=== PATIENT | female | born 1985 | race Hispanic/Latino ===

== ENCOUNTER → 2017-12-16 | Outpatient (CLI) | payer OTHER, BC ==
[~2017-12-16] MED LIST: AMITRIPTYLINE H10 MG PO; AMITRIPTYLINE100 MG PO; BIOTIN PO; BIOTIN2500 MCG PO; CARVEDILOL PO; CARVEDILOL3.125 MG PO; DOXYCYCLINE HY100 MG PO; ENOXAPARIN100 MG/1 M SC; FERROUS SULFAT325 MG PO; FIBER CON PO; FIBERCON625 MG PO; GENTLE LAXATIVE5 M1 PO; LOSARTAN POTAS100 MG PO; SANTYL15 GM TOP; VITAMIN C PO; VITAMIN C500 MG PO
--- NOTE | 2017-12-16 14:12 | Diagnostic Imaging Report ---
PROCEDURE:US RETROPERITONEAL ( KIDNEY ). COMPARISON:None. INDICATIONS:GROSS HEMATURIA TECHNIQUE: Mott scale color Doppler ultrasound kidneys FINDINGS: Right: 10.2 x 5.7 x 5.2 cm. Cortical thickness 2.3 cm Left: 12 x 5.7 x 5.6 cm. Cortical thickness 2.7 cm Both kidneys demonstrate normal parenchymal echogenicity. No conspicuous mass or stone. The right kidney contains a triangular-shaped 1.5 x 0.8 x 1.4 cm focus of hyperechogenicity along the anterior cortex which is incontinuity with adjacent pararenal fat. Simple cyst: 1.2 x 1.2 x 1.2 cm left inferior pole Survey views of the urinary bladder are normal. Patent ureters bilaterally. CONCLUSION: 1. No conspicuous etiology for hematuria. 2. Simple left inferior pole renal cyst. 3. Small wedge-shaped defect in the right kidney cortex in keeping with a cleft or sequela of remote infarct. This region is filled with adjacent pararenal fat. Dictated by: Esvin Leary M.D. on 12/16/2017 at 14:15 Electronically approved by: Esvin Leary M.D. on 12/16/2017 at 14:15
== END ==
LOC: US 12:10
PROVIDERS: ATTEND Urology
DX: R31.0 Gross hematuria (principal)
CPT/HCPCS: 76770

== ENCOUNTER → 2018-03-19 | Outpatient (CLI) | payer BC, MEDICARE ==
[~2018-03-19] MED LIST changes: +FUROSEMIDE INJ 10 MG/ML 4 ML VIAL ONE; +IOPAMIDOL 370 MG/ML 200 ML INFUS..BTL INJ ONE; +SODIUM CHLORIDE 0.9% 100 ML 100 ML ONE
[2018-03-19 08:23] LABS: BLOOD UREA NITROGEN 11 mg/dL (7-26); BUN/CREATININE RATIO 18 (6-25); CREATININE, SERUM 0.61 mg/dL (0.57-1.11); EST GLOMERULAR FILTRATION RATE > 60 ML/MIN (60-)
--- NOTE | 2018-03-19 16:14 | Diagnostic Imaging Report ---
Renal Scan with Lasix Washout Clinical information: 33 F with gross hematuria Technique: Following intravenous administration of 10 mCi of Tc-99m MAG3, dynamic images of the kidneys in the posterior projection were obtained through 40 minutes. Lasix 40 mg was administered intravenously at 10 minutes post injection of the tracer. Report: Left kidney: Perfusion of the left kidney is prompt. The kidney has a normal reniform shape. Extraction of tracer from the blood pool is normal. Clearance of tracer from the renal parenchyma is prompt. The pelvicalyceal system is not dilated. Physiologic pooling of tracer is seen within the pelvicalyceal system. No net drainage of tracer from the pelvicalyceal system is seen prior to administration of Lasix. Washout of tracer from the pelvicalyceal system following administration of Lasix is rapid with a T-1/2 of 6 minutes (normal less than 15 minutes). No significant stasis of tracer is seen within the left ureter. Right kidney: Perfusion of the right kidney is prompt. The kidney has a normal reniform shape. Extraction of tracer from the blood pool is normal. Clearance of tracer from the renal parenchyma is prompt. The pelvicalyceal system is not dilated. Physiologic pooling of tracer is seen within the pelvicalyceal system. No net drainage of tracer from the pelvicalyceal system is seen prior to administration of Lasix. Washout of tracer from the pelvicalyceal system following administration of Lasix is rapid with a T-1/2 of 6 minutes (normal less than 15 minutes). No significant stasis of tracer is seen within the right ureter. Differential renal function: The left kidney contributes 50% of total renal function and the right kidney contributes 50% (normal 43-57%). Impression: 1. The function of the left kidney is generally normal. No hydronephrosis is present. No physiologically significant obstruction of the renal collecting system is present. 2. The function of the right kidney is generally normal. No hydronephrosis is present. No physiologically significant obstruction of the renal collecting system is present. 3. The differential renal function is preserved. Signed by: Dr. Elenita Ruvalcaba M.D. on 03/19/2018 4:10 PM
--- NOTE | 2018-03-19 17:50 | Diagnostic Imaging Report ---
EXAMINATION: CT of the abdomen and pelvis with and without contrast. TECHNIQUE: Spiral CT images of the abdomen and pelvis were performed from the lung bases to the lesser trochanters before and after the intravenous administration of 150 cc of Isovue 370 and the oral administration of 100. COMPARISON: Renal ultrasound 12/16/2017. CT abdomen and pelvis with and without contrast 12/16/2016 CLINICAL HISTORY:Hematuria, neoplasm of kidney DISCUSSION: ABDOMEN/PELVIS: LOWER THORAX:Unremarkable. HEPATOBILIARY: No focal hepatic lesions. No intra or extrahepatic biliary ductal dilation. GALLBLADDER: Radiopaque stones are noted in the gallbladder fundus. No wall thickening. SPLEEN: No splenomegaly. PANCREAS: No focal masses or ductal dilatation. ADRENALS: No adrenal nodules. KIDNEYS/URETERS: Right: No renal or ureteral calculi, hydronephrosis or obstruction. No solid enhancing masses. Cortical scar or cleft in the anterior superior aspect of the right kidney, corresponding to the described abnormality on ultrasound 12/16/2017. No perinephric stranding. Left: No renal or ureteral calculi, hydronephrosis or obstruction. No solid enhancing masses. 1.1 cm nonenhancing simple cyst in the anterior superior to mid aspect (series 7, image 57). No perinephric stranding. Good contrast opacification of bilateral renal collecting systems, renal pelves and proximal and mid right ureter and entire left ureter. No filling defects, strictures or extrinsic compressions. PELVIC ORGANS/BLADDER: Bladder is unremarkable, without focal lesions. Result remarkable. No adnexal masses. PERITONEUM/RETROPERITONEUM: No free air or fluid. LYMPH NODES: No intra-abdominal,retroperitoneal, pelvic or inguinal lymphadenopathy. VESSELS: The celiac trunk,superior and inferior mesenteric and bilateral renal arteries are patent The portal, superior mesenteric and splenic veins are patent. IVC filter in place. GI TRACT: No bowel dilation or evidence of obstruction. No pericolonic inflammatory changes. BONES AND SOFT TISSUE: No aggressive lytic lesions. Orthopedic hardware T11-L2, with evidence of laminectomy. Neural stimulator device in the soft tissues of the right flank, with wire distal to the level of L1-L2. IMPRESSION: 1. No renal masses identified. 2. Cortical scar or cleft in the anterior superior right kidney corresponding to the described finding on ultrasound 12/16/2017. 3. No filling defects, strictures or extrinsic compressions in the opacified portions of the genitourinary tract. 4. No renal or ureteral calculi, hydronephrosis or obstruction. 5. Cholelithiasis, without CT evidence of cholecystitis. Signed by: Dr. Patricio Salgado M.D. on 03/19/2018 5:46 PM
== END ==
LOC: CT 07:26
PROVIDERS: ATTEND Urology
DX: R31.0 Gross hematuria (principal); N39.0 Urinary tract infection, site not specified
CPT/HCPCS: 36415; 74178; 78708; 82565; 84520; A9562; J1940; Q9967

== ENCOUNTER 2018-07-03 06:04 | Observation (INO) | payer BC ==
[2018-06-29 10:56] LABS: BASOPHILS # (AUTO) 0.1 (0.0-0.1); BASOPHILS % 0.6 % (0.0-1.0); EOSINOPHILS # (AUTO) 0.2 (0.0-0.4); EOSINOPHILS % 1.9 % (0.0-6.0); HEMATOCRIT 38.3 % (34.2-44.1); HEMOGLOBIN 13.4 g/dL (12.0-16.0); LYMPHOCYTES # (AUTO) 1.8 (1.0-3.2); LYMPHOCYTES % 19.6 % (18.0-39.1); MEAN CORPUSCULAR HEMOGLOBIN 31.7 pg (28-32); MEAN CORPUSCULAR VOLUME 90.5 fL (81-99); MONOCYTES # (AUTO) 0.5 (0.2-0.8); NEUTROPHILS # (AUTO) 6.5 (2.1-6.9); NEUTROPHILS % 72.7 % (38.7-80.0); PLATELET COUNT 268 x10e3/uL (140-360); RED BLOOD COUNT 4.23 x10e6/uL (3.6-5.1); RED CELL DISTRIBUTION WIDTH 12.1 % (11.7-14.4)
[2018-06-29 11:20] LABS: BLOOD UREA NITROGEN 10 mg/dL (7-26); BUN/CREATININE RATIO 17 (6-25); CARBON DIOXIDE 25 mmol/L (22-29); CHLORIDE 107 mmol/L (98-107); EST GLOMERULAR FILTRATION RATE > 60 ML/MIN (60-); GLUCOSE 96 mg/dL (74-118); SODIUM 141 mmol/L (136-145)
[~2018-07-03] VITALS: Ht 165.1 cm; Wt 93.0 kg
[~2018-07-03 06:04] MED LIST changes: +FIBER WELL PO; -FUROSEMIDE INJ 10 MG/ML 4 ML VIAL ONE; -IOPAMIDOL 370 MG/ML 200 ML INFUS..BTL INJ ONE; +MULTI-VITAMIN1 EACH PO; +MYRBETRIQ50 MG PO; -SODIUM CHLORIDE 0.9% 100 ML 100 ML ONE; +ZINC SULFATE220 MG PO
--- OUTSIDE RECORDS SUMMARY | 2018-07-03 06:07 | XMS REPORT ---
Author Author [facility] Organization [facility] Address Unknown Phone Unavailable Care Team Providers Care Senior Data Developer Name Role Phone Jes KELLOGG Unavailable Unavailable HAMPEL, JOSH Unavailable Unavailable Payers Payer Name Policy Type Policy Number Effective Date Expiration Date Problems This patient has no known problems. Allergies, Adverse Reactions, Alerts Allergy Name Allergy Type Status Severity Reaction(s) Onset Date Inactive Date Treating Clinician Comments No Known Allergies DA Active U 2014-12-22 00:00:00 Medications This patient has no known medications. Results Test Description Test Time Test Comments Text Results Atomic Results Result Comments US ABDOMEN LIMITED 2018-04-07 18:47:00 [facility] [address] [place], [place] [address] Patient Name: LOREN BROOKE MR #: [id number] : 1985 Age/Sex: 33/F Req #: [id number] Adm Physician: Ordered by: JENNIFER KELLOGG MD Report #: [id number] Location: Room/Bed: Procedure: [id number] US/US ABDOMEN LIMITED Exam Date: Exam Time: REPORT STATUS: Signed EXAM: Right Upper Quadrant Ultrasound INDICATION: COMPARISON: CT abdomen and pelvis 03/19/2018 , renal ultrasound 12/16/2017 TECHNIQUE: Transverse and longitudinal images of the right upper abdomen were obtained. FINDINGS: Liver: Size: 16.3 cm in the right midclavicular line, mildly enlarged Appearance: Normal echogenicity, smooth contour Mass: No focal masses Gallbladder: Stones/Sludge: Multiple mobile echogenic calculi with posterior acoustic shadowing are noted in the gallbladder lumen. Wall: 0.3 cm Appearance: No wall thickening, pericholecystic fluid or hydrops. Sonographic Amezquita's Sign: Negative Bile Ducts: Intrahepatic Ducts: No dilatation Extrahepatic Ducts: Common bile duct measures 0.5 cm, no dilatation Pancreas: Obscured by overlying bowel gas Kidneys: Nicole th: Right 12.1 cm Echogenicity: Normal Collecting System: No hydronephrosis Stone: None Cyst/Mass: None. Vessels: Aorta: Visualized portions are normal Inferior Vena Cava: Visualized portions are normal Main Portal Vein: 1.1 cm, normal size with hepatopetal flow. Free Fluid: No ascites or pleural effusion IMPRESSION: 1. Cholelithiasis, without sonographic evidence of cholecystitis. 2. Mild hepatomegaly. No focal lesions. Signed by: Dr. Kinsey Salgado M.D. on 04/07/2018 6:50 PM Dictated By: KINSEY SALGADO MD 49 Transcribed By: LEODAN on 04/07/181849 COPY TO: JENNIFER KELLOGG MD CT ABDOMEN/PELVIS WOW 2018-03-19 17:29:00 [place] [address] Patient Name: LOREN BROOKE MR #: [id number] : 1985 Age/Sex: 33/F Req #: [id number] Adm Physician: Ordered by: JOSH WILKERSON MD Report #: [id number] Location: CT Room/Bed: Procedure: [id number] CT/CT ABDOMEN/PELVIS WOW Exam Date: 03/19/18 Exam Time: 0853 REPORT STATUS: Signed EXAMINATION: CT of the abdomen and pelvis with and without contrast. TECHNIQUE: Spiral CT images of the abdomen and pelvis were performed from the lung bases to the lesser trochanters before and after the intravenous administration of 150 cc of Isovue 370 and the oral administration of 100. COMPARISON: Renal ultrasound 12/16/2017. CT abdomen and pelvis with and without contrast 12/16/2016 CLINICAL HISTORY:Hematuria, neoplasm of kidney DISCUSSION: ABDOMEN/PELVIS: LOWER THORAX:Unremarkable. HEPATOBILIARY: No focal hepatic lesions. No intra or extrahepatic biliary ductal dilation. GALLBLADDER: Radiopaque stones are noted in the gallbladder fundus. No wall thickening. SPLEEN: No splenomegaly. PANCREAS: No focal masses or ductal dilatation. ADRENALS: No adrenal nodul es. KIDNEYS/URETERS: Right: No renal or ureteral calculi, hydronephrosis or obstruction. No solid enhancing masses. Cortical scar or cleft in the anterior superior aspect of the right kidney, corresponding to the described abnormality on ultrasound 12/16/2017. No perinephric stranding. Left: No renal or ureteral calculi, hydronephrosis or obstruction. No solid enhancing masses. 1.1 cm nonenhancing simple cyst in the anterior superior to mid aspect (series 7, image 57). No perinephric stranding. Good contrast opacification of bilateral renal collecting systems, renal pelves and proximal and mid right ureter and entire left ureter. No filling defects, strictures or extrinsic compressions. PELVIC ORGANS/BLADDER: Bladder is unremarkable, without focal lesions. Result remarkable. No adnexal masses. PERITONEUM/RETROPERITONEUM: No free air or fluid. LYMPH NODES: No intra- abdominal,retroperitoneal, pelvic or inguinal lymphadenopathy. VESSELS: The celiac trunk,superior and inferior mesenteric and bilateral renal arteries are patent The portal, superior mesenteric and splenic veins are patent. IVC filter in place. GI TRACT: No bowel dilation or evidence of obstruction. No pericolonic inflammatory changes. BONES AND SOFT TISSUE: No aggressive lytic lesions. Orthopedic hardware T11-L2, with evidence of laminectomy. Neural stimulator device in the soft tissues of the right flank, with wire distal to the level of L1-L2. IMPRESSION: 1. No renal masses identified. 2. Cortical scar or cleft in the anterior superior right kidney corresponding to the described finding on ultrasound 12/16/2017. 3. No filling defects, strictures or extrinsic compressions in the opacified portions of the genitourinary tract. 4. No renal or ureteral calculi, hydronephrosis or obstruction. 5. Cholelithiasis, without CT evidence of cholecystitis. Signed by: Dr. Kinsey Salgado M.D. on 03/19/2018 5:46 PM Dictated By: KINSEY SALGADO MD 45 Transcribed By: LEODAN on 03/19/181745 COPY TO: JOSH WILKERSON MD RENAL SCAN W/LASIX 2018-03-19 16:05:00 [place] [address] Patient Name: LOREN BROOKE MR #: [id number] : 1985 Age/Sex: 33/F Req #: [id number] Adm Physician: Ordered by: JOSH WILKERSON MD Report #: [id number] Location: CT Room/Bed: Procedure: [id number] NM/RENAL SCAN W/LASIX Exam Date: 03/19/18 Exam Time: 1320 REPORT STATUS: Signed Renal Scan with Lasix Washout Clinical information: 33 F with gross hematuria Technique: Following intravenous administration of 10 mCi of Tc- 99m MAG3, dynamic images of the kidneys in the posterior projection were obtained through 40 minutes. Lasix 40 mg was administered intravenously at 10 minutes post injection of the tracer. Report: Left kidney: Perfusion of the left kidney is prompt. The kidney has a normal reniform shape. Extraction of tracer from the blood pool is normal. Clearance of tracer from the renal parenchyma is prompt. The pelvicalyceal system is not dilated. Physiologic pooling of tracer is seen within the pelvicalyceal system. No net drainage of tracer from the pelvicalyceal system is seen prior to administration of Lasix. Washout of tracer from the pelvicalyceal system following administration of Lasix is rapid with a T-1/2 of 6 minutes (normal less than 15 minutes). No significant stasis of tracer is seen within the left ureter. Right kidney: Perfusion of the right kidney is prompt. The kidney has a normal reniform shape. Extraction of tracer from the blood pool is normal. Clearance of tracer from the renal parenchyma is prompt. The pelvicalyceal system is not dilated. Physiologic pooling of tracer is seen within the pelvicalyceal system. No net drainage of tracer from the pelvicalyceal system is seen prior to administration of Lasix. Washout of tracer from the pelvicalyceal system following administration of Lasix is rapid with a T-1/2 of 6 minutes (normal less than 15 minutes). No significant stasis of tracer is seen within the right ureter. Differential renal function: The left kidney contributes 50% of total renal function and the right kidney contributes 50% (normal 43-57%). Impression: 1. The function of the left kidney is generally normal. No hydronephrosis is present. No physiologically significant obstruction of the renal collecting system is present. 2. The function of the right kidney is generally normal. No hydronephrosis is present. No physiologically significant obstruction of the renal collecting system is present. 3. The differential renal function is preserved. Signed by: Dr. Gladys Ruvalcaba M.D. on 03/19/2018 4:10 PM Dictated By: GLADYS RUVALCABA MD 1610 Transcribed By: LEODAN on 03/19/18 1610 COPY TO: JOSH WILKERSON MD RENAL RETROPERITONEAL COMP [facility] [address] [place] [address] Patient Name: LOREN BROOKE MR #: [id number] : 1985 Age/Sex: 32/F Req #: [id number] Adm Physician: Ordered by: JOSH WILKERSON MD Report #: [id number] Location: Room/Bed: Procedure: [id number] US/US RENAL RETROPERITONEAL COMP Exam Date: Exam Time: REPORT STATUS: Signed PROCEDURE: US RETROPERITONEAL ( KIDNEY ). COMPARISON: None. INDICATIONS: GROSS HEMATURIA TECHNIQUE: Mott scale color Doppler ultrasound kidneys FINDINGS: Right: 10.2 x 5.7 x 5.2 cm. Cortical thickness 2.3 cm Left: 12 x 5.7 x 5.6 cm. Cortical thickness 2.7 cm Both kidneys demonstrate normal parenchymal echogenicity. No conspicuous mass or stone. The right kidney contains a triangular-shaped 1.5 x 0.8 x 1.4 cm focus of hyperechogenicity along the anterior cortex which is incontinuity with adjacent pararenal fat. Simple cyst: 1.2 x 1.2 x 1.2 cm left inferior pole Survey views of the urinary bladder are normal. Patent ureters bilaterally. CONCLUSION: 1. No conspicuous etiology for hematuria. 2. Simple left inferior pole renal cyst. 3. Small wedge-shaped defect in the right kidney cortex in keeping with a cleft or sequela of remote infarct. This region is filled with adjacent pararenal fat. Dictated by: Jenny Leary M.D. on 12/16/2017 at 14:15 Electronically approved by: Jenny Leary M.D. on 12/16/2017 at 14:15 Dictated By: JENNY LEARY MD 1415 Transcribed By: BEREINCE nguyen 12/16/17 1415 COPY TO: JOSH WILKERSON MD
--- OUTSIDE RECORDS SUMMARY | 2018-07-03 06:07 | XMS REPORT | Clinical Summary ---
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 Active losartan (COZAAR) 50 MG Take 100 mg 0 tablet by mouth nightly . Active carvedilol (COREG) 6.25 Take 12.5 mg 0 MG tablet by mouth 2 (two) times daily with breakfast and dinner . Active amitriptyline (ELAVIL) 50 Take 100 mg 0 MG tablet by mouth nightly . Active biotin 10,000 mcg Cap Take 1 0 capsule by mouth daily. Active ferrous sulfate 325 (65 Take 325 mg 0 FE) MG tablet by mouth 2 (two) times daily. Active ascorbic acid (VITAMIN C) Take 500 mg 0 1000 MG tablet by mouth 2 (two) times daily . Active polycarbophil (FIBERCON) Take 625 mg 0 625 mg tablet by mouth 2 (two) times daily. Active Missing or Non-Formulary Gentle 0 Medication Laxative daily . Active Problems Problem Noted Date DVT (deep venous thrombosis) 10/04/2016 S/P IVC filter 10/04/2016 Bilateral edema of lower extremity 10/04/2016 Essential hypertension 10/04/2016 Family History Medical History Relation Name Comments Hypertension Father Diabetes Mother Hypertension Mother Relation Name Status Comments Father Mother Social History Date Tobacco Use Types Packs/Day Years Used Never Smoker Smokeless Tobacco: Never Used Alcohol Use Drinks/Week oz/Week Comments No Sex Assigned at Date Recorded Not on file Industry Job Start Date Occupation Not on file Not on file Not on file Travel End Travel History Travel Start No recent travel history available. Last Filed Vital Signs Not on file Plan of Treatment Health Maintenance Due Date Last Done Comments INFLUENZA VACCINE 04/27/2018 Results Not on fileafter 07/02/2017 Insurance Payer Benefit Subscriber ID Type Phone Address Plan / Group BLUE CROSS[employer]BLUE [employer] BCBS PPO xxxxxxxxxxxx PPO [phone] [address] [place] [address] CHOICE
[2018-07-03] MEDS ORDERED: BUPIVACAINE 0.25%/EPI 30ML SDV INJ ONE (07:02)
[2018-07-03] MEDS ORDERED: LIDOCAINE HCL 1% LOCAL INJ 20 ML VIAL ONE (07:02)
[2018-07-03] MEDS ORDERED: LIDOCAINE JELLY 2% 10ML URO-JET ONE (07:06)
[2018-07-03] MEDS ORDERED: SODIUM CHLORIDE 0.9% 1000ML 1,000 ML IV SCH (10:21)
[2018-07-03] MEDS ORDERED: KETOROLAC TROMETHAMINE 30 MG/ML VIAL IV PRN (10:30)
[2018-07-03] MEDS ORDERED: HYDROMORPHONE 1MG/1ML INJ IV PRN (10:30)
[2018-07-03] MEDS ORDERED: ACETAMINOPHEN 1000 MG/100 ML IV PRN (10:30)
[2018-07-03] MEDS ORDERED: ONDANSETRON HCL INJ 2 MG/ML VIAL IV PRN (10:30)
--- OUTSIDE RECORDS SUMMARY | 2018-07-03 10:58 | XMS REPORT | Clinical Summary ---
Author Author MARY JANE [facility] Address Unknown Phone Unavailable Care Team Providers Care Commercial Leasing Agent Name Role Phone [employer] Parminder PCP [...] BL[employer] CROSS[employer]IELD [employer] PPO xxxxxxxxxxxx PPO [phone] [address] [place] [address] CHOICE
--- OUTSIDE RECORDS SUMMARY | 2018-07-03 11:01 | XMS REPORT | Summary of Care ---
Author Author [facility] Address Unknown Phone Unavailable Encounter PRANAV Pop(MELISSA) [id number] Date(s): 02/16/15 - 02/16/[address] [phone] Discharge Disposition: Home Attending Physician: Mary Mayo MD Referring Physician: Mary Mayo MD Vital Signs Most recent to 1 oldest [Reference Range]: Blood Pressure 150/107 mmHg [90-140/60-90 mmHg] *HI* (02/16/15 10:36 AM) Most recent to 1 oldest [Reference Range]: Respiratory Rate 18 BRMIN [14-20 BRMIN] (02/16/15 10:36 AM) Most recent to 1 oldest [Reference Range]: Peripheral Pulse 86 bpm Rate [60-100 bpm] (02/16/15 10:36 AM) Problem List Condition Effective Dates Status Health Status Informant 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) Hypertension(Confirm Active ed) Vancomycin resistant Active enterococcus(Confirm ed) Neurogenic Active bladder(Confirmed) Neurogenic Active bladder(Confirmed) Neurogenic Active bowel(Confirmed) Paraparesis(Confirme Active d) Spasticity(Confirmed Active ) Urinary tract Active infection(Confirmed) Allergies, Adverse Reactions, Alerts Substance Reaction Severity Status NKDA Active NKFA Active Medications amitriptyline 100 mg oral tablet 100 mg=1 tab, PO, Bedtime, # 90 tab, 4 Refill(s), Pharmacy: [id number] Start Date: 02/16/15 Status: Ordered Lyrica 150 mg oral capsule 150 mg=1 cap, PO, QID, # 360 cap, 4 Refill(s) Start Date: 02/16/15 Status: Ordered Results No data available for this section Immunizations No data available for this section Procedures Procedure Date Related Diagnosis Body Site Video urodynamic study 12/07/14 Social History Social History Type Response Smoking Status Never smoker; Exposure to Tobacco Smoke None; Cigarette Smoking Last 365 Days No; Reg Smoking Cessation Counseling No Assessment and Plan No data available for this section
--- OUTSIDE RECORDS SUMMARY | 2018-07-03 11:01 | XMS REPORT | Continuity of Care Document ---
Author Author [facility] Interface Address Unknown Phone Unavailable Problems Problem Status Onset Date Classification Date Reported Comments Source PARAPLEGIA Active 04/21/2018 [facility] [place] G82.22 Active 03/19/2018 [place] STRENGTH UNLIMITED Active 12/10/2017 [facility] Paraplegia, incomplete 11/15/2017 03/19/2018 [facility] Other intervertebral disc displacement, lumbar region 09/19/2017 12/23/2017 [facility] FOLLOW UP Active 09/01/2017 [facility] FINAL FITTING Active 07/15/2017 [facility] SCI Active 01/25/2017 [facility] T14.90 Active 09/16/2016 [facility] F/U Active 07/02/2016 [facility] 74802 X 5 Active 01/03/2016 [facility] H53.3 - OTHER AND UNSPECIFIED DISORDER Active 12/21/2015 [facility] [place] [id number] X 4 Active 12/20/2015 [facility] Discharge Diagnosis: Essential hypertension 11/14/2015 11/17/2015 [facility] HIGH BLOOD PRESSURE Active 11/14/2015 [facility] ANNUAL F/U Active 08/11/2015 [facility] NEW PT EVAL Active 08/11/2015 [facility] EVAL-DR. 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 [facility]ococcus Active Problem 03/19/2018 [facility], OPIJes Hassan,[facility] Neurogenic bladder Active Problem 03/19/2018 [facility], OPIJes Hassan,[facility] Neurogenic bowel Active Problem 03/19/2018 [facility], OPIJes Hassan,[facility] Paraparesis Active Problem 03/19/2018 [facility], SHASTA Hassan,[facility] Spasticity Active Problem 03/19/[facility] Urinary tract infection Active Problem 03/19/2018 [facility], OPIJes Hassan,[facility] Final: 01/28/2015 [facility] Neuropathic pain Active Problem 03/19/2018 [facility], OPIJes Hassan,[facility] SCI (<span ID="[id number]">Confirmed</span>)<sup>1</sup> Active Problem 03/19/2018 sci tumor removal [facility], SHASTA Hassan,[facility] Obesity Active Problem 03/19/2018 [facility], SHASTA Hassan,[facility] Diarrhea Active Problem 03/19/2018 [facility] Dependence on wheelchair 11/21/2017 [facility] Neuromuscular dysfunction of bladder, unspecified 11/21/2017 [facility] Neurogenic bowel, not elsewhere classified 11/21/2017 [facility] 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, sequela 03/19/2018 [facility] BENIGN DELFIN VERTEBRAE Active [facility] PARAPLEGIA NOS Active [facility] QUADRPLG C1-C4, INCOMPLT Active [facility] FOLLOW-UP EXAM NOS Active [facility] PARAPLEGIA, INCOMPLETE Active [facility] Medications Medication Details Route Status Patient Instructions Ordering Provider Order Date Source Docusate Sodium 56.6 MG/ML Enema [Enemeez] 283 mg=1 ea, [place], PRN, 0 Refill(s) Active 03/04/2017 [facility] calcium polycarbophil 625 MG Oral Tablet [FiberCon] 0 Refill(s) Active 03/04/2017 [facility] 24 HR mirabegron 50 MG Extended Release Tablet [Myrbetriq] 50 mg=1 tab, PO, Daily, # 30 tab, 0 Refill(s) Active 03/04/2017 [facility] DULoxetine 60 mg oral delayed release capsule 60 mg=1 cap, PO, Daily, # 90 cap, 3 Refill(s) Active 12/11/2015 [facility] losartan 50 mg oral tablet 2tabs, PO, Daily, total of 100mg daily, 0 Refill(s) Active 12/11/2015 [facility] Saline Flush 0.9% 10 mL, Route: IVP, Drug Form: INJ, Dosing Weight 104.545, kg, PRN, PRN Line Flush, Start date: 11/14/15 12:13:00 CDT, Duration: 30 day, Stop date: 12/14/15 12:12:00 CDTNotes: (Same as: BD Posiflush) Inactive 11/14/2015 [facility] 9" 3-Panel Waist 46"-62" 1 ea, MISC, ONCE, # 1 ea, 0 Refill(s) Active 10/12/2015 [facility] Compression Stockings 1 ea, MISC, Daily, # 1 ea, 0 Refill(s) Active 10/12/2015 [facility] 1 ML Enoxaparin sodium 100 MG/ML Prefilled Syringe [Lovenox] 100 mg, SUB-Q, Q12H, # 60 inj, 11 Refill(s), Pharmacy: [id number] Active 10/12/2015 [facility] gabapentin 400 MG Oral Capsule 1,600 mg=4 cap, PO, TID, take 3 caps in the morning, afternoon, and 4 caps at night., # 360 cap, 11 Refill(s), Pharmacy: [id number] Active 09/12/2015 [facility] DULoxetine 60 mg oral delayed release capsule 60 mg=1 cap, PO, Daily, # 90 cap, 0 Refill(s), Pharmacy: [facility] Active 09/11/2015 [facility] losartan 50 mg oral tablet 50 mg=1 tab, PO, Daily, # 30 tab, 0 Refill(s) Active 09/11/2015 [facility] duloxetine 30 MG Enteric Coated Capsule [Cymbalta] 30 mg=1 cap, PO, Daily, # 30 cap, 0 Refill(s), Pharmacy: [id number] Active 08/21/2015 [facility] zolpidem 10 mg oral tablet 10 mg=1 tab, PO, Bedtime, PRN for sleep, X 14 day, # 14 tab, 0 Refill(s) Active 08/21/2015 [facility] biotin 5000 mcg oral tablet, disintegrating See Instructions, 30008 mcg PO, # 30 caplet, 0 Refill(s) Active 08/21/2015 [facility] warfarin 6 mg oral tablet 6 mg=1 tab, PO, Daily, 6 mg Mon- Sat 5 mg Friday, # 30 tab, 0 Refill(s) Active 08/21/2015 [facility] Clonidine Hydrochloride 0.1 MG Oral Tablet 0.1 mg, PO, 1 TAB prn for SBP GREATER THEN 160, OR DIASTOLIC bP GREATER THAN 100 , DOSE 0.1MG, 0 Refill(s) Active 08/14/2015 [facility] pregabalin 150 MG Oral Capsule [Lyrica] 150 mg=1 cap, PO, QID, # 360 cap, 4 Refill(s) Active 02/16/2015 [facility] amitriptyline 100 mg oral tablet 100 mg=1 tab, PO, Bedtime, # 90 tab, 4 Refill(s), Pharmacy: [id number] Active 02/16/2015 [facility] Naprosyn 500 mg, 1 tab, Route: PO, Drug form: TAB, BID, Dosing Weight 109.273, kg, Start date: 01/24/15 21:00:00, Duration: 30 day, Stop date: 02/23/15 8:30:00Notes: (Same as: Naprosyn) Take with food. No Longer Active 01/25/2015 [facility] Naprosyn 500 mg, 1 tab, Route: PO, Drug form: TAB, ONCE, Dosing Weight 109.273, kg, Priority: NOW, Start date: 01/24/15 13:59:00, Stop date: 01/24/15 13:59:00Notes: (Same as: Naprosyn) Take with food. Inactive 01/24/2015 [facility] Multivitamins with Folic Acid 0.4 mg oral tablet 0.4 mg=1 tab, PO, Daily, # 30 tab, 0 Refill(s) Active 01/24/2015 [facility] Docusate Sodium 56.6 MG/ML Enema [Enemeez] 283 mg=1 ea, [place], Bedtime, PRN Constipation, # 30 ea, 0 Refill(s) Active 01/24/2015 [facility] ascorbic acid 500 mg oral tablet 500 mg=1 tab, CHEW, BID, # 60 tab, 0 Refill(s) Active 01/24/2015 [facility] gabapentin 400 MG Oral Capsule 1,200 mg=3 cap, PO, TID, # 270 cap, 0 Refill(s) Active 01/24/2015 [facility] warfarin 3 mg oral tablet 6 mg=2 tab, PO, Q5PM, # 60 tab, 0 Refill(s) Active 01/24/2015 [facility] tramadol hydrochloride 50 MG Oral Tablet 100 mg=2 tab, PO, Q6H, PRN Pain Score 1-3, # 60 tab, 0 Refill(s) Active 01/24/2015 [facility] senna 8.6 mg oral tablet 25.8 mg=3 tab, PO, QNoon, # 90 tab, 0 Refill(s) Active 01/24/2015 [facility] pregabalin 75 mg oral capsule 150 mg=2 cap, PO, Q8H-06, # 180 cap, 0 Refill(s) Active 01/24/2015 [facility] oxyCODONE 5 mg oral tablet 5 mg=1 tab, PO, Q4H, PRN Pain Score 4-6, 0 Refill(s) Active 01/24/2015 [facility] melatonin 3 mg oral tablet 6 mg=2 tab, PO, Bedtime, # 60 tab, 0 Refill(s) Active 01/24/2015 [facility] ferrous sulfate 325 MG Oral Tablet 325 mg=1 tab, PO, BID- Meals, # 30 tab, 0 Refill(s) Active 01/24/2015 [facility] Diphenhydramine Hydrochloride 25 MG Disintegrating Tablet 25 mg=1 tab, PO, TID, PRN Allergies, 0 Refill(s) Active 01/24/2015 [facility] carvedilol 6.25 mg oral tablet 12.5 mg=2 tab, PO, Q12H, # 60 tab, 0 Refill(s) Active 01/24/2015 [facility] baclofen 10 mg oral tablet 10 mg=1 tab, PO, Q8H-06, # 90 tab, 0 Refill(s) Active 01/24/2015 [facility] amitriptyline 100 mg oral tablet 100 mg=1 tab, PO, Bedtime, # 30 tab, 0 Refill(s) Active 01/24/2015 [facility] hydrocortisone acetate 25 MG Rectal Suppository [Anusol HC] 25 mg=1 supp, [place], BID, # 60 supp, 0 Refill(s) Active 01/24/2015 [facility] magnesium hydroxide 8% oral suspension 2.4 gm=30 mL, PO, Daily, PRN as needed for constipation, # 360 mL, 0 Refill(s) Active 01/24/2015 [facility] acetaminophen 325 mg oral tablet 325 mg=1 tab, PO, Q6H, PRN For Temp > 100.4 F, 0 Refill(s) Active 01/24/2015 [facility] Amitriptyline 100 mg, 1 tab, Route: PO, Drug form: TAB, Bedtime, Dosing Weight 109.273, kg, Start date: 01/22/15 21:00:00, Duration: 60 day, Stop date: 03/22/15 21:00:00Notes: (Same as: Elavil) No Longer Active 2015 [facility] hydrocortisone acetate 25 MG Rectal Suppository [Anusol HC] 25 mg, 1 supp, Route: [place], BID, Drug form: SUPP, Start date: 01/22/15 21:00:00, Duration: 60 day, Stop date: 03/23/15 8:30:00Notes: (Same as: Anusol-HC, Hemorrhoidal HC) No Longer Active 2015 [facility] Omnipaque 300 100 mL, Route: Intravesical, Drug Form: SOLN, Dosing Weight 109.273, kg, ONCE, Start date: 01/18/15 8:32:00, Stop date: 01/18/15 8:32:00Notes: (Same as:Omnipaque 300). Inactive 01/18/2015 [facility] Amitriptyline 75 mg, 3 tab, Route: PO, Drug form: TAB, Bedtime, Dosing Weight 109.273, kg, Start date: 01/16/15 21:00:00, Duration: 60 day, Stop date: 03/16/15 21:00:00Notes: (Same as: Elavil) No Longer Active 01/17/2015 [facility] Warfarin 6 mg, 2 tab, Route: PO, Drug form: TAB, Q5PM, Dosing Weight 109.273, kg, Start date: 01/16/15 17:00:00, Duration: 30 day, Stop date: 02/14/15 17:00:00Notes: Nurse to ensure documentation of patient education per anticoagulation policy. Avoid large intake of vitamin-K containing foods diet. (Same As: Coumadin) No Longer Active 01/16/2015 [facility] Warfarin 5 mg, 1 tab, Route: PO, Drug form: TAB, Q5PM, Dosing Weight 109.273, kg, Start date: 01/12/15 17:00:00, Duration: 30 day, Stop date: 02/10/15 17:00:00Notes: Nurse to ensure documentation of patient education per anticoagulation policy. Avoid large intake of vitamin-K containing foods diet. (Same As: Coumadin) No Longer Active 01/12/2015 [facility] lactobacillus acidophilus 1 tab, Route: PO, Drug Form: CHEWTAB, Dosing Weight 109.273, kg, BID, Start date: 01/11/15 8:30:00, Duration: 30 day, Stop date: 02/09/15 21:00:00Notes: High Potency Chewable lactobabacillus acidophilus 1 billion bacteria/tablet No Longer Active 01/11/2015 [facility] Levofloxacin 500 mg, 1 tab, Route: PO, Drug form: TAB, [id number], Dosing Weight 109.273, kg, Start date: 01/11/15 8:00:00, Duration: 5 day, Stop date: 01/15/15 8:00:00 No Longer Active 01/11/2015 [facility] senna 8.6 mg oral tablet 25.8 mg, 3 tab, Route: PO, Drug Form: TAB, Dosing Weight 106.818, kg, QNoon, Start date: 01/10/15 12:00:00, Duration: 60 day, Stop date: 03/10/15 12:00:00Notes: (Same as: Senokot) No Longer Active 01/10/2015 [facility] pregabalin 150 mg, 2 cap, Route: PO, Drug form: CAP, Q8H- 06, Dosing Weight 106.818, kg, Start date: 01/09/15 22:00:00, Stop date: 02/08/15 14:00:00Notes: (Same as: Lyrica) No Longer Active 01/10/2015 [facility] gabapentin 300 MG Oral Capsule 1,200 mg, 4 cap, Route: PO, Drug form: CAP, Q8H-06, Dosing Weight 106.818, kg, Start date: 01/09/15 22:00:00, Duration: 60 day, Stop date: 03/10/15 14:00:00Notes: (Same as: Neurontin) No Longer Active 01/10/2015 [facility] Baclofen 10 mg, 1 tab, Route: PO, Drug form: TAB, Q8H-06, Dosing Weight 106.818, kg, Start date: 01/09/15 22:00:00, Duration: 60 day, Stop date: 03/10/15 14:00:00Notes: (Same As: Lioresal) No Longer Active 01/10/2015 [facility] Warfarin 4 mg, 2 tab, Route: PO, Drug form: TAB, Q5PM, Dosing Weight 109.273, kg, Start date: 01/09/15 17:00:00, Duration: 30 day, Stop date: 02/07/15 17:00:00Notes: Nurse to ensure documentation of patient education per anticoagulation policy. Avoid large intake of vitamin-K containing foods diet. (Same As: Coumadin) No Longer Active 01/09/2015 [facility] Warfarin 0.5 mg, Route: PO, Drug form: TAB, Q5PM, Dosing Weight 109.273, kg, Start date: 01/07/15 17:00:00, Duration: 30 day, Stop date: 02/05/15 17:00:00 Inactive 01/07/2015 [facility] Coumadin 8 mg, 4 tab, Route: PO, Drug form: TAB, Q5PM, Start date: 01/07/15 17:00:00, Duration: 30 day, Stop date: 02/05/15 17:00:00Notes: Nurse to ensure documentation of patient education per anticoagulation policy. Avoid large intake of vitamin-K containing foods diet. (Same As: Coumadin) No Longer Active 01/07/2015 [facility] Multivitamins with Folic Acid 0.4 mg oral tablet 1 tab, Route: PO, Drug Form: TAB, Dosing Weight 109.273, kg, Daily, Start date: 01/06/15 8:30:00, Duration: 30 day, Stop date: 02/04/15 8:30:00 No Longer Active 01/06/2015 [facility] Oxycontin 10 mg, 1 tab, Route: PO, Drug form: ERTAB, Bedtime, Dosing Weight 106.818, kg, Start date: 01/05/15 21:00:00, Stop date: 02/03/15 21:00:00Notes: Do not crush or chew. (Same as: OxyContin) No Longer Active 01/06/2015 [facility] Coreg 12.5 mg, 2 tab, Route: PO, Drug form: TAB, Q12H, Dosing Weight 109.273, kg, Start date: 01/04/15 21:00:00, Duration: 60 day, Stop date: 03/05/15 9:00:00Notes: Give with food. (Same As: Coreg) No Longer Active 01/05/2015 [facility] Warfarin 7.5 mg, 1 tab, Route: PO, Drug form: TAB, Q5PM, Dosing Weight 109.273, kg, Start date: 01/04/15 17:00:00, Duration: 30 day, Stop date: 02/02/15 17:00:00Notes: Nurse to ensure documentation of patient ed ucation per anticoagulation policy. Avoid large intake of vitamin-K containing foods diet. (Same As: Coumadin) No Longer Active 01/04/2015 [facility] Oxycontin 10 mg, 1 tab, Route: PO, Drug form: ERTAB, Q12H, Dosing Weight 106.818, kg, Start date: 01/03/15 21:00:00, Stop date: 02/02/15 9:00:00Notes: Do not crush or chew. (Same as: OxyContin) No Longer Active 01/04/2015 [facility] Lovenox 100 mg, 1 mL, Route: SUB-Q, Drug form: INJ, [id number], Dosing Weight 109.273, kg, Start date: 01/03/15 21:00:00, Duration: 30 day, Stop date: 02/02/15 9:00:00Notes: Nurse to ensure documentation of patient education per anticoagulation policy. (Same as: Lovenox) No Longer Active 01/04/2015 [facility] Docusate Sodium 56.6 MG/ML Enema [Enemeez] 283 mg, 5 mL, Route: [place], Drug form: HERNAN, Bedtime, Dosing Weight 109.273, kg, Start date: 01/03/15 21:00:00, Duration: 30 day, Stop date: 02/01/15 21:00:00Notes: Same as Enemeez Non formulary item No Longer Active 01/04/2015 [facility] Warfarin 2.5 mg, 1 tab, Route: PO, Drug form: TAB, ONCE, Dosing Weight 109.273, kg, Start date: 01/03/15 19:08:00, Stop date: 01/03/15 19:08:00Notes: Nurse to ensure documentation of patient education per [facility] policy. Avoid large intake of vitamin-K containing foods diet. (Same As: Coumadin) Inactive 01/04/2015 [facility] Docusate Sodium 56.6 MG/ML Enema [Enemeez] 283 mg, 5 mL, Route: [place], Drug form: HERNAN, Bedtime, Dosing Weight 109.273, kg, PRN Constipation, Start date: 12/31/14 8:16:00, Duration: 30 day, Stop date: 01/30/15 8:15:00Notes: Same as Enemeez Non formulary item No Longer Active 12/31/2014 [facility] Vitamin C 500 mg, 1 tab, Route: CHEW, Drug form: TAB, BID, Dosing Weight 109.273, kg, Start date: 12/30/14 21:00:00, Duration: 30 day, Stop date: 02/28/15 8:30:00Notes: (Same as: Vitamin C) No Longer Active 12/31/2014 [facility] senna 8.6 mg oral tablet 17.2 mg, 2 tab, Route: PO, Drug Form: TAB, Dosing Weight 106.818, kg, QNoon, Start date: 12/30/14 12:00:00, Stop date: 01/28/15 12:00:00Notes: (Same as: Senokot) No Longer Active 12/30/2014 [facility] Milk of Magnesia 30 mL, Route: PO, Drug Form: SUSP, Dosing Weight 109.273, kg, Daily, PRN as needed for constipation, Start date: 12/30/14 9:42:00, Duration: 30 day, Stop date: 01/29/15 9:41:00Notes: (Same as: Milk of Magnesia, MOM) No Longer Active 12/30/2014 [facility] Linzess (Linaclotide) 145 mcg Capslue Linzess (Linaclotide) 145 mcg Capslue, 1 cap, Drug form: MISC, Route: PO, Daily, 12/30/14 8:30:00, Duration: 60 day, Stop date: 02/27/15 8:30:00 No Longer Active 12/30/2014 [facility] Melatonin 6 mg, 2 tab, Route: PO, Drug form: TAB, Bedtime, Dosing Weight 106.818, kg, Start date: 12/29/14 21:00:00, Stop date: 02/26/15 21:00:00Notes: (Same as: Melatonin) No Longer Active 12/30/2014 [facility] Coumadin 5 mg, 1 tab, Route: PO, Drug form: TAB, Q5PM, Dosing Weight 106.818, kg, Start date: 12/29/14 17:00:00, Stop date: 02/27/15 17:00:00Notes: Nurse to ensure documentation of patient education per [facility] policy. Avoid large intake of vitamin-K containing foods diet. (Same As: Coumadin) No Longer Active 12/29/2014 [facility] Melatonin 3 MG Extended Release Tablet 3 mg, 1 tab, Route: PO, Drug Form: TAB, Dosing Weight 109.273, kg, Bedtime, PRN as needed for insomnia, Start date: 12/29/14 12:44:00, Duration: 60 day, Stop date: 02/27/15 12:43:00Notes: (Same as: Melatonin) No Longer Active 12/29/2014 [facility] Losartan 50 mg, 2 tab, Route: PO, Drug form: TAB, Daily, Dosing Weight 106.818, kg, Start date: 12/29/14 8:30:00, Stop date: 02/27/15 8:30:00Notes: (Same as: Cozaar) No Longer Active 12/29/2014 [facility] Linaclotide Linaclotide, 145mcg, Route: PO, Daily, 12/29/14 8:30:00, Duration: 30 day, Stop date: 01/27/15 8:30:00 Inactive 12/29/2014 [facility] ferrous sulfate 325 mg, 1 tab, Route: PO, Drug form: TAB, BID-Meals, Dosing Weight 106.818, kg, Start date: 12/29/14 8:00:00, Stop date: 02/26/15 8:00:00Notes: Give with food. iron elemental [id number] as ferrous ruiz lfate Dose=___mg elemental iron No Longer Active 12/29/2014 [facility] Bisacodyl 10 mg, Route: [place], Drug form: SUPP, QAM, Dosing Weight 106.818, kg, Start date: 12/29/14 6:30:00, Duration: 30 day, Stop date: 01/27/15 6:30:00 No Longer Active 12/29/2014 [facility] Oxycontin 10 mg, 1 tab, Route: PO, Drug form: ERTAB, Q8H, Dosing Weight 106.818, kg, Start date: 12/29/14 0:00:00, Stop date: 02/27/15 16:00:00Notes: Do not crush or chew. (Same as: OxyContin) No Longer Active 12/29/2014 [facility] senna 8.6 mg oral tablet 17.2 mg, 2 tab, Route: PO, Drug Form: TAB, Dosing Weight 106.818, kg, Bedtime, Start date: 12/28/14 21:00:00, Stop date: 02/26/15 21:00:00Notes: (Same as: Senokot) No Longer Active 12/29/2014 [facility] pregabalin 150 mg, 2 cap, Route: PO, Drug form: CAP, TID, Dosing Weight 106.818, kg, Start date: 12/28/14 21:00:00, Stop date: 02/27/15 0:00:00Notes: (Same as: Lyrica) No Longer Active 12/29/2014 [facility] POLYETHYLENE GLYCOL 3350 17 gm, Route: PO, Drug form: PDR/REC, Bedtime, Dosing Weight 106.818, kg, Start date: 12/28/14 21:00:00, Duration: 30 day, Stop date: 01/26/15 21:00:00 Inactive 12/29/2014 [facility] Melatonin 3 mg, 1 tab, Route: PO, Drug form: TAB, Bedtime, Dosing Weight 106.818, kg, Start date: 12/28/14 21:00:00, Stop date: 02/26/15 21:00:00Notes: (Same as: Melatonin) No Longer Active 12/29/2014 [facility] carvedilol 6.25 mg, 1 tab, Route: PO, Drug form: TAB, Q12H, Dosing Weight 106.818, kg, Start date: 12/28/14 21:00:00, Stop date: 02/27/15 9:00:00Notes: Give with food. (Same As: Coreg) No Longer Active 12/29/2014 [facility] Bisacodyl 10 mg, 1 supp, Route: PO, Drug form: SUPP, Bedtime, Dosing Weight 106.818, kg, Start date: 12/28/14 21:00:00, Stop date: 02/26/15 21:00:00Notes: (Same As: Dulcolax, Bisco-Lax) No Longer Active 12/29/2014 [facility] Baclofen 10 mg, 1 tab, Route: PO, Drug form: TAB, TID, Dosing Weight 106.818, kg, Start date: 12/28/14 21:00:00, Stop date: 02/27/15 13:00:00Notes: (Same As: Lioresal) No Longer Active 12/29/2014 [facility] Amitriptyline 50 mg, 1 tab, Route: PO, Drug form: TAB, Bedtime, Dosing Weight 106.818, kg, Start date: 12/28/14 21:00:00, Stop date: 02/26/15 21:00:00Notes: (Same as: Elavil) No Longer Active 12/29/2014 [facility] SMOG Enema 900 ml, Route: [place], Drug Form: HERNAN, Dosing Weight 106.818, kg, ONCE, Start date: 12/28/14 17:18:00, Stop date: 12/28/14 17:18:00, tonightSpecial Instructions: tonightNotes: Non formulary item Inactive 12/28/2014 [facility] Saline Flush 0.9% 10 mL, Route: IVP, Drug Form: INJ, Dosing Weight 106.818, kg, PRN, PRN Line Flush, Start date: 12/28/14 17:18:00, Stop date: 02/27/15 17:17:00Notes: (Same as: BD Posiflush) No Longer Active 12/28/2014 [facility] Milk of Magnesia 60 ml, Route: PO, Drug Form: SUSP, Dosing Weight 106.818, kg, ONCE, Start date: 12/28/14 17:18:00, Stop date: 12/28/14 17:18:00Notes: (Same as: Milk of Magnesia, MOM) Inactive 12/28/2014 [facility] Cascara sagrada 450 mg, 1 cap, Route: PO, Drug Form: CAP, Dosing Weight 106.818, kg, ONCE, Start date: 12/28/14 17:18:00, Stop date: 12/28/14 17:18:00Notes: Non-Formulary Item Inactive 12/28/2014 [facility] gabapentin 300 MG Oral Capsule 900 mg, 3 cap, Route: PO, Drug form: CAP, QID, Dosing Weight 106.818, kg, Start date: 12/28/14 17:00:00, Stop date: 02/27/15 13:00:00Notes: (Same as: Neurontin) No Longer Active 12/28/2014 [facility] Warfarin 2.5 mg, Route: PO, Drug form: TAB, Q5PM, Dosing Weight 106.818, kg, Start date: 12/28/14 17:00:00, Duration: 30 day, Stop date: 01/26/15 17:00:00 Inactive 12/28/2014 [facility] tramadol hydrochloride 50 MG Oral Tablet 100 mg, 2 tab, Route: PO, Drug form: TAB, Q6H, Dosing Weight 106.818, kg, PRN Pain Score 1-3, Start date: 12/28/14 16:51:00, Stop date: 02/27/15 16:50:00Notes: Not to exceed 400mg/day. (Same As: Ultram) No Longer Active 12/28/2014 [facility] Oxycodone Hydrochloride 5 MG Oral Tablet 5 mg, 1 tab, Route: PO, Drug form: TAB, Q4H, Dosing Weight 106.818, kg, PRN Pain Score 4-6, Start date: 12/28/14 16:50:00, Stop date: 02/27/15 16:49:00Notes: (Same as: Roxicodone) No Longer Active 12/28/2014 [facility] Diphenhydramine Hydrochloride 25 MG Disintegrating Tablet 25 mg, 1 tab, Route: PO, Drug form: TAB, TID, Dosing Weight 106.818, kg, PRN Allergies, Start date: 12/28/14 16:49:00, Stop date: 02/27/15 16:48:00 No Longer Active 12/28/2014 [facility] acetaminophen 325 mg oral tablet 325 mg, 1 tab, Route: PO, Drug form: TAB, Q6H, Dosing Weight 106.818, kg, PRN For Temp > 100.4 F, Start date: 12/28/14 16:49:00, Stop date: 02/27/15 16:48:00Notes: Do not exceed 4 gm/day. (Same as: Tylenol) No Longer Active 12/28/2014 [facility] pregabalin 75 mg oral capsule 150 mg=2 cap, PO, TID, # 120 cap, 5 Refill(s) Active 12/15/2014 [facility] baclofen 10 mg oral tablet 10 mg=1 tab, PO, TID, # 90 tab, 0 Refill(s) Active 12/15/2014 [facility] carvedilol 6.25 mg oral tablet 6.25 mg=1 tab, PO, Q12H, # 60 tab, 0 Refill(s) Active 11/14/2014 [facility] bisacodyl 10 mg rectal suppository 10 mg=1 supp, PO, Bedtime, # 30 supp, 0 Refill(s) Active 11/14/2014 [facility] baclofen 10 mg oral tablet 5 mg=0.5 tab, PO, TID, # 30 tab, 0 Refill(s) Active 11/14/2014 [facility] ascorbic acid 500 mg oral tablet 500 mg=1 tab, PO, BID, # 60 tab, 0 Refill(s) No Longer Active 11/14/2014 [facility] amitriptyline 50 mg oral tablet 50 mg=1 tab, PO, Bedtime, # 30 tab, 0 Refill(s) Active 11/14/2014 [facility] acetaminophen 325 mg oral tablet 325 mg=1 tab, PO, Q6H, PRN For Temp > 100.4 F, 0 Refill(s) Active 11/14/2014 [facility] fluconazole 100 mg oral tablet 200 mg=2 tab, PO, [id number], # 5 tab, 0 Refill(s) Active 11/14/2014 [facility] tramadol hydrochloride 50 MG Oral Tablet 100 mg=2 tab, PO, Q6H, PRN Pain Score 1-5, # 120 tab, 0 Refill(s) Active 11/14/2014 [facility] ferrous sulfate 325 MG Oral Tablet 325 mg=1 tab, PO, BID, # 60 tab, 0 Refill(s) Active 11/14/2014 [facility] [id number] mg oral tablet, extended release 10 mg=1 tab, PO, Q8H, 0 Refill(s) Active 11/14/2014 [facility] oxyCODONE 5 mg oral tablet 5 mg=1 tab, PO, Q3H, PRN Pain Score 4-6, 0 Refill(s) Active 11/14/2014 [facility] senna 8.6 mg oral tablet 17.2 mg=2 tab, PO, Bedtime, # 60 tab, 0 Refill(s) Active 11/14/2014 [facility] pregabalin 75 mg oral capsule 150 mg=2 cap, PO, Q12H, # 120 cap, 0 Refill(s) Active 11/14/2014 [facility] Nystatin 100 UNT/MG Topical Powder 1 appl, TOP, TID, # 30 gm, 0 Refill(s) Active 11/14/2014 [facility] warfarin 1 mg oral tablet 2.5 mg=2.5 tab, PO, Q5PM, # 90 tab, 0 Refill(s) Active 11/14/2014 [facility] polyethylene glycol 3350 oral powder for reconstitution 17 gm, PO, Bedtime, # 527 gm, 0 Refill(s) Active 11/14/2014 [facility] diphenhydrAMINE 25 mg oral tablet 25 mg=1 tab, PO, TID, PRN Itching, 0 Refill(s) Active 11/14/2014 [facility] Melatonin 3 mg oral tablet 3 mg=1 tab, PO, Bedtime, # 30 tab, 0 Refill(s) Active 11/14/2014 [facility] gabapentin 300 MG Oral Capsule 900 mg=3 cap, PO, QID, # 360 cap, 0 Refill(s) Active 11/14/2014 [facility] polycarbophil 625 mg oral tablet 1,250 mg=2 tab, PO, TID- Meals, PRN Constipation, # 6 tab, 0 Refill(s) Active 11/14/2014 [facility] Furosemide 20 MG Oral Tablet [Lasix] 20 mg, 1 tab, Route: PO, Drug form: TAB, BID, Dosing Weight 106.909, kg, Start date: 11/11/14 21:00:00, Duration: 7 day, Stop date: 11/18/14 8:30:00Notes: (Same as: Lasix) May cause GI upset. Give with food or milk. No Longer Active 11/12/2014 [facility] Bisacodyl 10 mg, 1 supp, Route: PO, Drug form: SUPP, Bedtime, Dosing Weight 106.909, kg, Start date: 11/10/14 21:00:00, Duration: 30 day, Stop date: 12/09/14 21:00:00Notes: (Same As: Dulcolax, Bisco-Lax) No Longer Active 11/11/2014 [facility] Furosemide 20 MG Oral Tablet [Lasix] 20 mg, 1 tab, Route: PO, Drug form: TAB, Daily, Dosing Weight 106.909, kg, Start date: 11/10/14 8:30:00, Duration: 7 day, Stop date: 11/16/14 8:30:00Notes: (Same as: Lasix) May cause GI upset. Give with food or milk. No Longer Active 11/10/2014 [facility] Amitriptyline 50 mg, 1 tab, Route: PO, Drug form: TAB, Bedtime, Dosing Weight 106.909, kg, Start date: 11/09/14 21:00:00, Stop date: 12/08/14 21:00:00Notes: (Same as: Elavil) No Longer Active 11/10/2014 [facility] Iohexol 100 mL, Route: IVP, Drug Form: SOLN, Dosing Weight 106.909, kg, ONCALL, STAT, Start date: 11/09/14 15:07:00, Duration: 1 doses or times, Dose=2.2ml/kg, Max [id number] --"To be infused by Radiology Staff ONLYSpecial Instructions: Dose=2.2ml/kg, Max [id number]=[id number] --"To be infused by Radiology Staff ONLYNotes: (Same as:Omnipaque 300). Inactive 11/09/2014 [facility] Fluconazole 200 mg, 2 tab, Route: PO, Drug form: TAB, [id number], Dosing Weight 106.909, kg, Start date: 11/09/14 13:00:00, Duration: 10 day, Stop date: 11/18/14 13:00:00Notes: (Same as: Diflucan) No Longer Active 11/09/2014 [facility] FiberCon 1,250 mg, 2 tab, Route: PO, Drug form: TAB, TID- Meals, Dosing Weight 106.909, kg, PRN Constipation, Start date: 11/09/14 10:55:00, Duration: 30 day, Stop date: 12/09/14 10:54:00Notes: Non-Formulary D rug (Same as: FiberCon) No Longer Active 11/09/2014 [facility] sodium chloride 60 mL, Route: IRRIG, Start date: 11/08/14 0:00:00, Duration: 30 day, Stop date: 12/07/14 16:00:00 No Longer Active 11/08/2014 [facility] Sodium Chloride 0.0769 MEQ/ML Irrigation Solution 60 mL, Route: IRRIG, Drug Form: SOLN, Dosing Weight 106.909, kg, Q8H, Start date: 11/08/14 0:00:00, Duration: 30 day, Stop date: 12/07/14 16:00:00 No Longer Active 11/08/2014 [facility] Baclofen 5 mg, 0.5 tab, Route: PO, Drug form: TAB, ONCE, Dosing Weight 106.909, kg, Start date: 11/08/14 0:00:00, Stop date: 11/08/14 0:00:00Notes: (Same As: Lioresal) Inactive 11/08/2014 [facility] Dibucaine 1 appl, Route: TOP, PRN, Drug form: OINT, PRN Bowel Movements, Start date: 11/07/14 22:39:00, Duration: 30 day, Stop date: 12/07/14 22:38:00Notes: Non-Formulary Drug (Same as: Nupercainal) No Longer Active 11/08/2014 [facility] Milk of Magnesia 60 ml, Route: PO, Drug Form: SUSP, Dosing Weight 106.909, kg, ONCE, Start date: 11/07/14 22:34:00, Stop date: 11/07/14 22:34:00Notes: (Same as: Milk of Magnesia, MOM) Inactive 11/08/2014 [facility] Coumadin 2.5 mg, 1 tab, Route: PO, Drug form: TAB, Q5PM, Dosing Weight 106.909, kg, Start date: 11/07/14 17:00:00, Stop date: 12/06/14 17:00:00Notes: Nurse to ensure documentation of patient education per [facility] policy. Avoid large intake of vitamin-K containing foods diet. (Same As: Coumadin) No Longer Active 11/07/2014 [facility] Vitamin C 500 mg, 1 tab, Route: PO, Drug form: TAB, BID, Dosing Weight 106.909, kg, Start date: 11/04/14 21:00:00, Duration: 30 day, Stop date: 12/04/14 8:30:00Notes: (Same as: Vitamin C) No Longer Active 11/05/2014 [facility] ferrous sulfate 325 mg, 1 tab, Route: PO, Drug form: TAB, BID, Dosing Weight 106.909, kg, Start date: 11/04/14 21:00:00, Duration: 30 day, Stop date: 12/04/14 8:30:00Notes: Give with food. iron elemental [id number] as ferrous sulfate Dose=___mg elemental iron No Longer Active 11/05/2014 [facility] Bisacodyl 10 mg, 1 supp, Route: [place], Drug form: SUPP, QAM, Dosing Weight 106.909, kg, Start date: 11/02/14 6:30:00, Duration: 30 day, Stop date: 12/01/14 6:30:00Notes: (Same As: Dulcolax, Bisco-Lax) No Longer Active 11/02/2014 [facility] senna 8.6 mg oral tablet 17.2 mg, 2 tab, Route: PO, Drug Form: TAB, Dosing Weight 106.909, kg, Bedtime, Start date: 11/01/14 21:00:00, Duration: 60 day, Stop date: 12/30/14 21:00:00Notes: (Same as: Senokot) No Longer Active 11/02/2014 [facility] Miralax 17 gm, 1 pkt, Route: PO, Drug form: PWDR, Bedtime, Dosing Weight 106.909, kg, Start date: 11/01/14 21:00:00, Duration: 60 day, Stop date: 12/30/14 21:00:00Notes: Dissolve in 8 oz of water or juice. (Same as: Miralax) No Longer Active 11/02/2014 [facility] SMOG Enema 900 ml, Route: KY, Drug Form: HERNAN, Dosing Weight 106.909, kg, ONCE, Start date: 11/01/14 16:55:00, Duration: 1 doses or times, Stop date: 11/01/14 16:55:00Notes: Non formulary item Inactive 11/01/2014 [facility] Milk of Magnesia 30 ml, Route: PO, Drug Form: SUSP, Dosing Weight 106.909, kg, ONCE, Start date: 11/01/14 16:55:00, Stop date: 11/01/14 16:55:00Notes: (Same as: Milk of Magnesia, MOM) Inactive 11/01/2014 [facility] Cascara sagrada 450 mg, 1 cap, Route: PO, Drug Form: CAP, Dosing Weight 106.909, kg, ONCE, Start date: 11/01/14 16:54:00, Stop date: 11/01/14 16:54:00Notes: Non-Formulary Item Inactive 11/01/2014 [facility] Miralax 17 gm, 1 pkt, Route: PO, Drug form: PWDR, QNoon, Dosing Weight 106.909, kg, Start date: 11/01/14 12:00:00, Duration: 60 day, Stop date: 12/30/14 12:00:00Notes: Dissolve in 8 oz of water or juice. (Same as: Miralax) Inactive 11/01/2014 [facility] bisacodyl 10 mg, 1 supp, Route: KY, Drug form: SUPP, ONCE, Start date: 11/01/14 10:08:00, Stop date: 11/01/14 10:08:00Notes: Non-Formulary Inactive 11/01/2014 [facility] Bisacodyl 10 mg, 1 supp, Route: KY, Drug form: SUPP, ONCE, Dosing Weight 106.909, kg, Start date: 11/01/14 9:31:00, Stop date: 11/01/14 9:31:00Notes: (Same As: Dulcolax, Bisco-Lax) Inactive 11/01/2014 [facility] Bisacodyl 10 mg, 1 supp, Route: KY, Drug form: SUPP, Bedtime, Dosing Weight 106.909, kg, Start date: 10/31/14 21:00:00, Duration: 30 day, Stop date: 11/29/14 21:00:00Notes: Non-Formulary No Longer Active 11/01/2014 [facility] Coumadin 5 mg, 1 tab, Route: PO, Drug form: TAB, Q5PM, Start date: 10/31/14 17:00:00, Duration: 30 day, Stop date: 11/29/14 17:00:00Notes: Nurse to ensure documentation of patient education per anticoagulation policy. Avoid large intake of vitamin-K containing foods diet. (Same As: Coumadin) No Longer Active 10/31/2014 [facility] Oxycontin 10 mg, 1 tab, Route: PO, Drug form: ERTAB, Q8H, Dosing Weight 106.909, kg, Start date: 10/31/14 16:00:00, Duration: 30 day, Stop date: 11/30/14 8:00:00Notes: Do not crush or chew. (Same as: OxyContin) No Longer Active 10/31/2014 [facility] Miralax 34 gm, 2 pkt, Route: PO, Drug form: PWDR, QNoon, Dosing Weight 106.909, kg, Start date: 10/31/14 12:00:00, Duration: 60 day, Stop date: 12/29/14 12:00:00Notes: Dissolve in 8 oz of water or juice. (Same as: Miralax) No Longer Active 10/31/2014 [facility] senna 8.6 mg oral tablet 25.8 mg, 3 tab, Route: PO, Drug Form: TAB, Dosing Weight 106.909, kg, QNoon, PRN Constipation, Start date: 10/31/14 10:55:00, Duration: 60 day, Stop date: 12/30/14 10:54:00Notes: (Same as: Senokot) No Longer Active 10/31/2014 [facility] Cascara sagrada 450 mg, 1 cap, Route: PO, Drug Form: CAP, Dosing Weight 106.909, kg, ONCE, Start date: 10/30/14 7:08:00, Stop date: 10/30/14 7:08:00Notes: Non-Formulary Item Inactive 10/30/2014 [facility] Milk of Magnesia 60 ml, Route: PO, Drug Form: SUSP, Dosing Weight 106.909, kg, ONCE, Start date: 10/30/14 7:08:00, Stop date: 10/30/14 7:08:00Notes: (Same as: Milk of Magnesia, MOM) Inactive 10/30/2014 [facility] SMOG Enema 900 ml, Route: KY, Drug Form: HERNAN, Dosing Weight 106.909, kg, ONCE, Start date: 10/30/14 7:06:00, Duration: 1 doses or times, Stop date: 10/30/14 7:06:00Notes: Non formulary item Inactive 10/30/2014 [facility] gabapentin 900 mg, 3 cap, Route: PO, Drug form: CAP, Q6H, Dosing Weight 106.909, kg, Start date: 10/29/14 12:00:00, Stop date: 11/28/14 6:00:00Notes: (Same as: Neurontin) No Longer Active 10/29/2014 [facility] Potassium Chloride 20 MEQ Extended Release Tablet 40 mEq, 2 tab, Route: PO, Drug form: ERTAB, Bedtime, Dosing Weight 106.909, kg, Start date: 10/27/14 21:00:00, Duration: 1 doses or times, Stop date: 10/27/14 21:00:00Notes: (Same as: K-Dur 20) "Do Not Crush" With food and full glass of water Inactive 10/28/2014 [facility] Potassium Chloride 20 MEQ Extended Release Tablet 40 mEq, 2 tab, Route: PO, Drug form: ERTAB, ONCE, Dosing Weight 106.909, kg, Priority: NOW, Start date: 10/27/14 17:32:00, Stop date: 10/27/14 17:32:00Notes: (Same as: K-Dur 20) "Do Not Crush" With food and full glass of water Inactive 10/27/2014 [facility] SMOG Enema 900 ml, Route: KY, Drug Form: HERNAN, Dosing Weight 106.909, kg, ONCE, Start date: 10/27/14 9:31:00, Stop date: 10/27/14 9:31:00Notes: Non formulary item Inactive 10/27/2014 [facility] Lyrica 150 mg, 2 cap, Route: PO, Drug form: CAP, ONCE, Start date: 10/27/14 9:27:00, Stop date: 10/27/14 9:27:00Notes: (Same as: Lyrica) Inactive 10/27/2014 [facility] oxyCONTIN 20 mg, 1 tab, Route: PO, Drug form: ERTAB, ONCE, Start date: 10/27/14 9:26:00, Stop date: 10/27/14 9:26:00Notes: Do not crush or chew. (Same as: OxyContin) Inactive 10/27/2014 [facility] Pepcid 20 mg, 1 tab, Route: PO, Drug form: TAB, ONCE, Start date: 10/27/14 9:26:00, Stop date: 10/27/14 9:26:00Notes: (Same as: Pepcid) Inactive 10/27/2014 [facility] baclofen 5 mg, 0.5 tab, Route: PO, Drug form: TAB, ONCE, Start date: 10/27/14 9:25:00, Stop date: 10/27/14 9:25:00Notes: (Same As: Lioresal) Inactive 10/27/2014 [facility] SMOG Enema 900 ml, Route: KY, Drug Form: HERNAN, Dosing Weight 106.909, kg, ONCE, STAT, Start date: 10/27/14 8:44:00, Duration: 1 doses or times, Stop date: 10/27/14 8:44:00Notes: Non formulary item Inactive 10/27/2014 [facility] Milk of Magnesia 60 ml, Route: PO, Drug Form: SUSP, Dosing Weight 106.909, kg, ONCE, STAT, Start date: 10/27/14 8:43:00, Stop date: 10/27/14 8:43:00Notes: (Same as: Milk of Magnesia, MOM) Inactive 10/27/2014 [facility] Zofran 4 mg, 1 tab, Route: PO, Drug form: TAB, ONCE, Dosing Weight 106.909, kg, Priority: STAT, Start date: 10/27/14 8:43:00, Stop date: 10/27/14 8:43:00Notes: (Same as: Zofran) Inactive 10/27/2014 [facility] ferrous sulfate 325 mg, 1 tab, Route: PO, Drug form: TAB, TID, Dosing Weight 106.909, kg, Start date: 10/25/14 13:00:00, Duration: 30 day, Stop date: 11/24/14 8:30:00Notes: Give with food. iron elemental [id number] as ferrous sulfate Dose=___mg elemental iron No Longer Active 10/25/2014 [facility] Oxycodone Hydrochloride 5 MG Oral Tablet 5 mg, 1 tab, Route: PO, Drug form: TAB, Q3H, Dosing Weight 106.909, kg, PRN Pain Score 4-6, Start date: 10/25/14 11:33:00, Duration: 30 day, Stop date: 11/24/14 11:32:00Notes: (Same as: Roxicodone) No Longer Active 10/25/2014 [facility] Coumadin 7 mg, Route: PO, Drug form: TAB, Q5PM, Dosing Weight 106.909, kg, Start date: 10/24/14 17:00:00, Duration: 30 day, Stop date: 11/22/14 17:00:00Notes: Nurse to ensure documentation of patient education per anticoagulation policy. Avoid large intake of vitamin-K containing foods diet. (Same As: Coumadin) No Longer Active 10/24/2014 [facility] Lovenox 110 mg, 0.73 mL, Route: SUB-Q, Drug form: INJ, [id number], Dosing Weight 106.909, kg, Start date: 10/22/14 10:00:00, Duration: 30 day, Stop date: 11/20/14 22:00:00Notes: Nurse to ensure documentation of p atient education per anticoagulation policy. (Same as: Lovenox) No Longer Active 10/22/2014 [facility] Lyrica 150 mg, 2 cap, Route: PO, Drug form: CAP, Q12H, Dosing Weight 106.909, kg, Start date: 10/20/14 21:00:00, Duration: 30 day, Stop date: 12/19/14 9:00:00Notes: (Same as: Lyrica) No Longer Active 10/21/2014 [facility] Oxycontin 20 mg, 1 tab, Route: PO, Drug form: ERTAB, Q8H, Dosing Weight 106.909, kg, Start date: 10/20/14 16:00:00, Duration: 30 day, Stop date: 11/19/14 8:00:00Notes: Do not crush or chew. (Same as: OxyContin) No Longer Active 10/20/2014 [facility] senna 8.6 mg oral tablet 17.2 mg, 2 tab, Route: PO, Drug Form: TAB, Dosing Weight 106.909, kg, QNoon, PRN Constipation, Start date: 10/20/14 12:24:00, Stop date: 11/19/14 12:23:00Notes: (Same as: Senokot) No Longer Active 10/20/2014 [facility] Oxycodone Hydrochloride 5 MG Oral Tablet 5 mg, 1 tab, Route: PO, Drug form: TAB, Q3H, Dosing Weight 106.909, kg, Start date: 10/20/14 12:00:00, Duration: 30 day, Stop date: 11/19/14 9:00:00Notes: (Same as: Roxicodone) No Longer Active 10/20/2014 [facility] oxyCONTIN 20 mg, 1 tab, Route: PO, Drug form: ERTAB, ONCE, Start date: 10/20/14 10:11:00, Stop date: 10/20/14 10:11:00Notes: Do not crush or chew. (Same as: OxyContin) Inactive 10/20/2014 [facility] Lyrica 100 mg, 1 cap, Route: PO, Drug form: CAP, Q12H, Dosing Weight 106.909, kg, Start date: 10/19/14 21:00:00, Duration: 30 day, Stop date: 11/18/14 9:00:00Notes: (Same as: Lyrica) No Longer Active 10/20/2014 [facility] cefepime 1 gm, Route: IVPB, [id number], Dosing Weight 106.909, kg, (CrCl 30 - 49 ml/min), Start date: 10/19/14 20:00:00, Duration: 6 day, Stop date: 10/25/14 8:00:00Notes: (Same As: Maxipime) No Longer Active 10/20/2014 [facility] heparin 5,000 unit, 1 mL, Route: SUB-Q, Drug form: INJ, Q8H, Dosing Weight 106.909, kg, Start date: 10/19/14 16:00:00, Duration: 30 day, Stop date: 11/18/14 8:00:00Notes: porcine heparin No Longer Active 10/19/2014 [facility] Miralax 17 gm, 1 pkt, Route: PO, Drug form: PWDR, QNoon, Dosing Weight 106.909, kg, Start date: 10/19/14 12:00:00, Stop date: 12/17/14 12:00:00Notes: Dissolve in 8 oz of water or juice. (Same as: Miralax) No Longer Active 10/19/2014 [facility] heparin 5,000 unit, 1 mL, Route: SUB-Q, Drug form: INJ, ONCE, Start date: 10/19/14 8:53:00, Stop date: 10/19/14 8:53:00Notes: porcine heparin Inactive 10/19/2014 [facility] Diovan 80 mg, 1 tab, Route: PO, Drug form: TAB, Daily, Start date: 10/19/14 8:30:00, Duration: 60 day, Stop date: 12/21/14 8:30:00Notes: Same as Diovan No Longer Active 10/19/2014 [facility] Losartan 50 mg, Route: PO, Drug form: TAB, Daily, Dosing Weight 106.909, kg, Start date: 10/19/14 8:30:00, Duration: 30 day, Stop date: 11/17/14 8:30:00 No Longer Active 10/19/2014 [facility] Melatonin 3 mg oral tablet 3 mg, 1 tab, Route: PO, Drug Form: TAB, Dosing Weight 106.909, kg, Bedtime, Start date: 10/18/14 22:00:00, Duration: 60 day, Stop date: 01/16/15 21:00:00Notes: (Same as: Melatonin) No Longer Active 10/19/2014 [facility] Bisacodyl 10 mg, 1 supp, Route: [place], Drug form: SUPP, Bedtime, Dosing Weight 106.909, kg, Start date: 10/18/14 21:00:00, Stop date: 12/16/14 21:00:00Notes: (Same As: Dulcolax, Bisco-Lax) No Longer Active 10/19/2014 [facility] Famotidine 20 MG Oral Tablet 20 mg, 1 tab, Route: PO, Drug form: TAB, BID, Dosing Weight 106.909, kg, Start date: 10/18/14 21:00:00, Duration: 30 day, Stop date: 12/17/14 8:30:00Notes: (Same as: Pepcid) No Longer Active 10/19/2014 [facility] Nystatin 100 UNT/MG Topical Powder 1 appl, Route: TOP, TID, Drug form: PWDR, Start date: 10/18/14 21:00:00, Stop date: 12/17/14 13:00:00Notes: (Same as:Mycostatin, Nilstat) For external use only. No Longer Active 10/19/2014 [facility] Baclofen 5 mg, 0.5 tab, Route: PO, Drug form: TAB, TID, Dosing Weight 106.909, kg, Start date: 10/18/14 21:00:00, Stop date: 12/17/14 13:00:00Notes: (Same As: Lioresal) No Longer Active 10/19/2014 [facility] Amitriptyline 25 mg, 1 tab, Route: PO, Drug form: TAB, Bedtime, Dosing Weight 106.909, kg, Start date: 10/18/14 21:00:00, Stop date: 12/16/14 21:00:00Notes: (Same as: Elavil) No Longer Active 10/19/2014 [facility] Docusate Sodium 100 MG Oral Capsule [Colace] 100 mg, 1 cap, Route: PO, Drug form: CAP, BID, Dosing Weight 106.909, kg, Start date: 10/18/14 21:00:00, Duration: 30 day, Stop date: 11/17/14 8:30:00Notes: (Same as: Colace) (Do Not Crush) No Longer Active 10/19/2014 [facility] Menthol 0.076 MG/MG / methyl salicylate 0.29 MG/MG Topical Ointment 1 appl, Route: TOP, TID, Drug form: OINT, Start date: 10/18/14 21:00:00, Duration: 30 day, Stop date: 12/17/14 13:00:00Notes: Non-Formulary Drug (Same as:Analgesic [place]) No Longer Active 10/19/2014 [facility] carvedilol 6.25 mg, 1 tab, Route: PO, Drug form: TAB, Q12H, Dosing Weight 106.909, kg, Start date: 10/18/14 21:00:00, Duration: 60 day, Stop date: 12/21/14 9:00:00Notes: Give with food. (Same As: Coreg) No Longer Active 10/19/2014 [facility] cefepime 1 gm, Route: IVPB, Drug form: INJ, Q12H, Dosing Weight 106.909, kg, (CrCl 30 - 49 ml/min), Start date: 10/18/14 21:00:00, Duration: 30 day, Stop date: 11/17/14 9:00:00Notes: (Same As: Maxipime) No Longer Active 10/19/2014 [facility] gabapentin 600 mg, 1 tab, Route: PO, Drug form: TAB, Q6H, Dosing Weight 106.909, kg, Start date: 10/18/14 18:00:00, Stop date: 12/17/14 12:00:00Notes: Same as Neurontin No Longer Active 10/18/2014 [facility] Tramadol 100 mg, 2 tab, Route: PO, Drug form: TAB, Q6H, Dosing Weight 106.909, kg, PRN Pain Score 1-5, Start date: 10/18/14 17:43:00, Duration: 30 day, Stop date: 12/17/14 17:42:00Notes: Not to exceed 400mg/day. (Same As: Ultram) No Longer Active 10/18/2014 [facility] senna 8.6 mg oral tablet 8.6 mg, 1 tab, Route: PO, Drug Form: TAB, Dosing Weight 106.909, kg, Bedtime, PRN Constipation, Start date: 10/18/14 17:42:00, Stop date: 12/17/14 17:41:00Notes: (Same as: Senokot) No Longer Active 10/18/2014 [facility] Benadryl 25 mg, 1 tab, Route: PO, Drug form: TAB, TID, Dosing Weight 106.909, kg, PRN Itching, Start date: 10/18/14 17:37:00, Stop date: 12/17/14 17:36:00 No Longer Active 10/18/2014 [facility] Acetaminophen 325 mg, 1 tab, Route: PO, Drug form: TAB, Q6H, Dosing Weight 106.909, kg, PRN For Temp > 100.4 F, Start date: 10/18/14 17:34:00, Stop date: 12/17/14 17:33:00Notes: Do not exceed 4 gm/day. (Same as: Tylenol) No Longer Active 10/18/2014 [facility] Oxycodone Hydrochloride 5 MG Oral Tablet 10 mg, 2 tab, Route: PO, Drug form: TAB, Q4H, Dosing Weight 106.909, kg, PRN Pain Score 4-6, Start date: 10/18/14 17:33:00, Stop date: 12/17/14 17:32:00Notes: (Same as: Roxicodone) No Longer Active 10/18/2014 [facility] Saline Flush 0.9% 10 mL, Route: IVP, Drug Form: INJ, Dosing Weight 106.909, kg, PRN, PRN Line Flush, Start date: 10/18/14 17:29:00, Stop date: 12/17/14 17:28:00Notes: (Same as: BD Posiflush) No Longer Active 10/18/2014 [facility] SMOG Enema 900 ml, Route: [place], Drug Form: HERNAN, Dosing Weight 106.909, kg, ONCE, Start date: 10/18/14 17:29:00, Stop date: 10/18/14 17:29:00, tonightSpecial Instructions: tonightNotes: Non formulary item Inactive 10/18/2014 [facility] Milk of Magnesia 60 ml, Route: PO, Drug Form: SUSP, Dosing Weight 106.909, kg, ONCE, Start date: 10/18/14 17:29:00, Stop date: 10/18/14 17:29:00Notes: (Same as: Milk of Magnesia, MOM) Inactive 10/18/2014 [facility] Cascara sagrada 450 mg, 1 cap, Route: PO, Drug Form: CAP, Dosing Weight 106.909, kg, ONCE, Start date: 10/18/14 17:29:00, Stop date: 10/18/14 17:29:00Notes: Non-Formulary Item Inactive 10/18/2014 [facility] Allergies, Adverse Reactions, Alerts Substance Category Reaction Severity Reaction type Status Date Reported Comments Source NKFA Assertion Propensity to adverse reactions to food Active [facility] Immunizations Immunization Date Given Site Status Last Updated Comments Source Results Order Name Results Value Reference Range Date Interpretation Comments Source Spine Thoracic wo contrast MRI Spine Thoracic wo contrast MRI Patient Name: LOREN BROOKE : 1985; Age: 30 years y/o Female MR: [id number] Study: Spine Thoracic wo contrast MRI 01/06/2016 1:31 PM CDT Clinical Indication: G89.4 Chronic pain syndrome; Comparison: None TECHNIQUE: Multiplanar T1, T2, STIR weighted noncontrast MRI of the thoracic spine is performed on the 1.5 [place] magnet. FINDINGS: ALIGNMENT AND GENERAL SURVEY: There is normal alignment of the thoracic spine. The bone marrow is normal for the patient's age. There are no fractures or compression deformities. The thoracic spine posterior elements are normal. The costovertebral junctions are unremarkable. Postoperative changes of multilevel fusion with corpectomy and grafting in the visualized thoracolumbar junction are seen. SPINAL CORD: The thoracic spine spinal cord is normal in size and signal. The CSF space is unremarkable. The conus medullaris ends at the L1 level. DISK SPACES: Disc desiccation with mild disc height loss in the mid to lower thoracic spine is seen. There is a small, 1 mm right paracentral disc protrusion at the level of T6-T7. 2 mm right paracentral disc protrusion at T8-T9 is also identified. Mild facet arthrosis in the lower thoracic spine is seen. IMPRESSION: 1. No acute bony abnormality of the thoracic spine. 2. Scattered mild degenerative disc disease in the lower thoracic spine with right paracentral disc protrusions at T6-T7 and T8-T9. No spinal canal stenosis or neural foraminal narrowing is seen. SL: [id number] 01/06/2016 - - Read by: William Macias MD Dictated Date/time: 01/07/16 08:12 Electronically Signed by: William Macias MD 01/07/16 08:19 FINAL REPORT [facility] [place] CARDIAC ENZYMES CK MB Index 1.8 0.0 - 2.5 11/14/2015 [facility] CARDIAC ENZYMES Total CK 161 unit/L 12 - 191 11/14/2015 [facility] CARDIAC ENZYMES CK MB 2.9 ng/mL 0.5 - 3.6 11/14/2015 [facility] CARDIAC ENZYMES Troponin-I null 0.00 - 0.40 11/14/2015 [facility] CARDIAC ENZYMES BNP 3 pg/mL <=100 pg/mL 11/14/2015 [facility] CHEM PANEL eGFR 127 mL/min/1.73m2 11/14/2015 Result Comment: The eGFR is calculated using the CKD-EPI formula. In most young, healthy individuals the eGFR will be >90 mL/min/1.73m2. The eGFR declines with age. An eGFR of 60-89 may be normal in some populations, particularly the elderly, for whom the CKD-EPI formula has not been extensively validated. Use of the eGFR is not recommended in the following populations: Individuals with unstable creatinine concentrations, including patients and those with serious co-morbid conditions. Patients with extremes in muscle mass or diet. The data above are obtained from the National Kid[employer] Education Program (NKDEP) which additionally recommends that when the eGFR is used in patients with extremes of body mass index for purposes of drug dosing, the eGFR should be multiplied by the estimated BMI. [facility] CHEM PANEL Globulin 4.2 g/dL 2.0 - 4.0 11/14/2015 [facility] CHEM PANEL A/G Ratio 0.9 0.7 - 1.6 11/14/2015 [facility] CHEM PANEL Alk Phos 129 unit/L 39 - 136 11/14/2015 [facility] CHEM PANEL Bili Total 0.3 mg/dL 0.2 - 1.3 11/14/2015 [facility] CHEM PANEL B/C Ratio 19 6 - 25 11/14/2015 [facility] CHEM PANEL AGAP 11.3 meq/L 10.0 - 20.0 11/14/2015 [facility] CHEM PANEL Calcium Lvl 8.7 mg/dL 8.5 - 10.5 11/14/2015 [facility] CHEM PANEL Total Protein 8.0 g/dL 6.4 - 8.4 11/14/2015 [facility] CHEM PANEL Albumin Lvl 3.8 g/dL 3.5 - 5.0 11/14/2015 [facility] CHEM PANEL ALT 131 unit/L 0 - 65 11/14/2015 [facility] CHEM PANEL AST 50 unit/L 0 - 37 11/14/2015 [facility] CHEM PANEL Chloride Lvl 102 meq/L 95 - 109 11/14/2015 [facility] CHEM PANEL CO2 26 meq/L 24 - 32 11/14/2015 [facility] CHEM PANEL Potassium Lvl 3.3 meq/L 3.5 - 5.1 11/14/2015 [facility] CHEM PANEL Creatinine Lvl 0.52 mg/dL 0.50 - 1.40 11/14/2015 [facility] CHEM PANEL Sodium Lvl 136 meq/L 135 - 145 11/14/2015 [facility] CHEM PANEL BUN 10 mg/dL 7 - 22 11/14/2015 [facility] CHEM PANEL Glucose Lvl 146 mg/dL 70 - 99 11/14/2015 [facility] HEMATOLOGY Lymphocytes 27.6 % 20.0 - 40.0 11/14/2015 [facility] HEMATOLOGY Segs 64.1 % 45.0 - 75.0 11/14/2015 [facility] HEMATOLOGY Monocytes 5.8 % 2.0 - 12.0 11/14/2015 [facility] Segs-Bands # 7.3 K/CMM 1.5 - 8.1 11/14/2015 [facility] HEMATOLOGY Monocytes # 0.7 K/CMM 0.0 - 0.8 11/14/2015 [facility] HEMATOLOGY Lymphocytes # 3.1 K/CMM 1.0 - 5.5 11/14/2015 [facility] HEMATOLOGY Eosinophils # 0.2 K/CMM 0.0 - 0.5 11/14/2015 [facility] HEMATOLOGY Eosinophils 2.2 % 0.0 - 4.0 11/14/2015 [facility] HEMATOLOGY Basophils 0.3 % 0.0 - 1.0 11/14/2015 [facility] Platelet 334 K/CMM 133 - 450 11/14/2015 [facility] MPV 8.7 fL 7.4 - 10.4 11/14/2015 [facility] HEMATOLOGY RDW 13.0 % 11.5 - 14.5 11/14/2015 [facility] Hgb 14.9 g/dL 12.0 - 16.0 11/14/2015 [facility] Hct 44.2 % 36.0 - 48.0 11/14/2015 [facility] MCV 88.5 fL 80.0 - 98.0 11/14/2015 [facility] MCHC 33.6 g/dL 32.0 - 36.0 11/14/2015 [facility] MCH 29.8 pg 27.0 - 31.0 11/14/2015 [facility] HEMATOLOGY RBC 5.00 M/CMM 4.20 - 5.40 11/14/2015 [facility] HEMATOLOGY WBC 11.4 K/CMM 3.7 - 10.4 11/14/2015 [facility] URINE AND STOOL UA RBC 2 /HPF 0 - 2 11/14/2015 [facility] URINE AND STOOL UA WBC 2 /HPF 0 - 5 11/14/2015 [facility] URINE AND STOOL UA Sq Epi Few /LPF Few /LPF 11/14/2015 [facility] URINE AND STOOL UA Amorph Heather Occasional /HPF None Seen /HPF 11/14/2015 [facility] URINE AND STOOL UA Ketones Negative mg/dL Negative mg/dL 11/14/2015 [facility] URINE AND STOOL UA pH 6.0 5.0 - 8.0 11/14/2015 [facility] URINE AND STOOL UA Bili Negative *NA* (11/14/15 12:45 PM) Negative 11/14/2015 [facility] URINE AND STOOL UA Blood Small *ABN* (11/14/15 12:45 PM) Negative 11/14/2015 [facility] URINE AND STOOL UA Urobilinogen 4.0 mg/dL 0.1 - 1.0 11/14/2015 [facility] URINE AND STOOL UA Nitrite Negative (11/14/15 12:45 PM) Negative 11/14/2015 [facility] URINE AND STOOL UA Glucose 150 mg/dL Negative mg/dL 11/14/2015 [facility] URINE AND STOOL UA Spec Grav 1.015 <=1.030 11/14/2015 [facility] URINE AND STOOL UA Protein 30 mg/dL Negative mg/dL 11/14/2015 [facility] URINE AND STOOL UA Turbidity Clear (11/14/15 12:45 PM) Clear 11/14/2015 [facility] URINE AND STOOL UA Leuk Est Negative (11/14/15 12:45 PM) Negative 11/14/2015 [facility] URINE AND STOOL UA Color Yellow *NA* (11/14/15 12:45 PM) Yellow 11/14/2015 [facility] Chest 1view DX Chest 1view DX Study: Chest 1view DX 11/14/2015 12:13 PM CDT Patient Name: LOREN BROOKE MR: [id number] : 1985; Age: 30 years y/o Female Ordering Physician: William Merida Clinical Indication: Chest pain Comparison: 05/09/2010. Lungs: The lungs are clear of consolidation, pleural effusion, and pneumothorax. The trachea is midline. Heart and mediastinum: Normal size heart. Lines: None. Other: None. Osseous structures: Incompletely visualized spinal stabilization rods. IMPRESSION: 1. No acute abnormality as above discussed. SL: [id number] 11/14/2015 - - Read by: Will Cheung MD Dictated Date/time: 11/14/15 12:56 Electronically Signed by: Will Cheung MD 11/14/15 12:57 FINAL REPORT [facility] Brain wo contrast CT Brain wo contrast CT Study: Brain wo contrast CT Clinical Indication: Headache with Dizziness and Giddiness Comparison: None TECHNIQUE: Multiple axial CT images of the brain were acquired without the administration of intravenous contrast. Coronal and sagittal reconstructions were obtained. CT radiation dose DLP: 1529.30 mGy-cm FINDINGS: The brain parenchyma is normal in volume and morphology. No acute intracranial hemorrhage, mass effect, midline shift, or hydrocephalus is seen. There are no extra-axial fluid collections. The visualized paranasal sinuses and mastoid air cells are well aerated. IMPRESSION: No acute intracranial abnormality. SL: [id number] 11/14/2015 - - Read by: William Macias MD Dictated Date/time: 11/14/15 12:46 Electronically Signed by: William Macias MD 11/14/15 12:46 FINAL REPORT [facility] HEMATOLOGY PT 27.1 s 12.0 - 14.7 01/25/2015 [facility] HEMATOLOGY INR 2.42 0.85 - 1.17 01/25/2015 7Interpretive Data: RECOMMENDED RANGES FOR PROTIME INR: 2.0-3.0 for most medical and surgical thromboembolic states. 2.5-3.5 for artificial heart valves and recurrent embolism. INR SHOULD BE USED ONLY FOR PATIENTS ON STABLE ANTICOAGULANT THERAPY. [facility] CHEM PANEL eGFR 128 mL/min/1.73m2 2015 1Result Comment: The eGFR is calculated using the CKD-EPI formula. In most young, healthy individuals the eGFR will be >90 mL/min/1.73m2. The eGFR declines with age. An eGFR of 60-89 may be normal in some populations, particularly the elderly, for whom the CKD-EPI formula has not been extensively validated. Use of the eGFR is not recommended in the following populations: Individuals with unstable creatinine concentrations, including patients and those with serious co-morbid conditions. Patients with extremes in muscle mass or diet. The data above are obtained from the National Kidney Disease Education Program (NKDEP) which additionally recommends that when the eGFR is used in patients with extremes of body mass index for purposes of drug dosing, the eGFR should be multiplied by the estimated BMI. [facility] CHEM PANEL Sodium Lvl 141 meq/L 135 - 145 2015 [facility] CHEM PANEL Potassium Lvl 3.7 meq/L 3.5 - 5.1 2015 [facility] CHEM PANEL Creatinine Lvl 0.5 mg/dL 0.5 - 1.4 2015 [facility] CHEM PANEL BUN 8 mg/dL 7 - 22 2015 [facility] CHEM PANEL Calcium Lvl 8.7 mg/dL 8.5 - 10.5 2015 [facility] CHEM PANEL CO2 29 meq/L 24 - 32 2015 [facility] CHEM PANEL Chloride Lvl 103 meq/L 95 - 109 2015 [facility] CHEM PANEL Glucose Lvl 86 mg/dL 70 - 99 2015 4Interpretive Data: Adult reference range values reflect the clinical guidelines of the [place] [employer]. [facility] CHEM PANEL AGAP 12.7 meq/L 10.0 - 20.0 2015 [facility] HEMATOLOGY INR 2.36 0.85 - 1.17 2015 8Interpretive Data: RECOMMENDED RANGES FOR PROTIME INR: 2.0-3.0 for most medical and surgical thromboembolic states. 2.5-3.5 for artificial heart valves and recurrent embolism. INR SHOULD BE USED ONLY FOR PATIENTS ON STABLE ANTICOAGULANT THERAPY. [facility] HEMATOLOGY PT 26.5 s 12.0 - 14.7 2015 [facility] HEMATOLOGY WBC 6.3 K/CMM 3.7 - 10.4 2015 [facility] HEMATOLOGY RBC 3.89 M/CMM 4.20 - 5.40 2015 [facility] HEMATOLOGY RDW 13.2 % 11.5 - 14.5 2015 [facility] HEMATOLOGY MCHC 33.3 g/dL 32.0 - 36.0 2015 [facility] HEMATOLOGY Hct 34.4 % 36.0 - 48.0 2015 [facility] HEMATOLOGY MCH 29.5 pg 27.0 - 31.0 2015 [facility] HEMATOLOGY Hgb 11.5 g/dL 12.0 - 16.0 2015 [facility] HEMATOLOGY MCV 88.5 fL 80.0 - 98.0 2015 [facility] HEMATOLOGY MPV 9.2 fL 7.4 - 10.4 2015 [facility] HEMATOLOGY Platelet 289 K/CMM 133 - 450 2015 [facility] HEMATOLOGY Segs-Bands # 3.3 K/CMM 1.5 - 8.1 2015 [facility] HEMATOLOGY Lymphocytes # 2.3 K/CMM 1.0 - 5.5 2015 [facility] HEMATOLOGY Monocytes 7.1 % 2.0 - 12.0 2015 [facility] HEMATOLOGY Eosinophils 4.1 % 0.0 - 4.0 2015 [facility] HEMATOLOGY Basophils 0.1 % 0.0 - 1.0 2015 [facility] HEMATOLOGY Basophils # 0.0 K/CMM 0.0 - 0.2 2015 [facility] HEMATOLOGY Monocytes # 0.4 K/CMM 0.0 - 0.8 2015 [facility] HEMATOLOGY Eosinophils # 0.3 K/CMM 0.0 - 0.5 2015 [facility] HEMATOLOGY Segs 51.9 % 45.0 - 75.0 2015 [facility] HEMATOLOGY Lymphocytes 36.8 % 20.0 - 40.0 2015 [facility] HEMATOLOGY INR 2.32 0.85 - 1.17 01/20/2015 9Interpretive Data: RECOMMENDED RANGES FOR PROTIME INR: 2.0-3.0 for most medical and surgical thromboembolic states. 2.5-3.5 for artificial heart valves and recurrent embolism. INR SHOULD BE USED ONLY FOR PATIENTS ON STABLE ANTICOAGULANT THERAPY. [facility] HEMATOLOGY PT 26.2 s 12.0 - 14.7 01/20/2015 [facility] ELECTROLYTES AGAP 11.5 meq/L 10.0 - 20.0 01/16/2015 [facility] ELECTROLYTES eGFR 129 mL/min/1.73m2 01/16/2015 2Result Comment: The eGFR is calculated using the CKD-EPI formula. In most young, healthy individuals the eGFR will be >90 mL/min/1.73m2. The eGFR declines with age. An eGFR of 60-89 may be normal in some populations, particularly the elderly, for whom the CKD-EPI formula has not been extensively validated. Use of the eGFR is not recommended in the following populations: Individuals with unstable creatinine concentrations, including patients and those with serious co-morbid conditions. Patients with extremes in muscle mass or diet. The data above are obtained from the National Kidney Disease Education Program (NKDEP) which additionally recommends that when the eGFR is used in patients with extremes of body mass index for purposes of drug dosing, the eGFR should be multiplied by the estimated BMI. [facility] ELECTROLYTES CO2 28 meq/L 24 - 32 01/16/2015 [facility] ELECTROLYTES Chloride Lvl 107 meq/L 95 - 109 01/16/2015 [facility] ELECTROLYTES Calcium Lvl 8.6 mg/dL 8.5 - 10.5 01/16/2015 [facility] ELECTROLYTES Creatinine Lvl 0.5 mg/dL 0.5 - 1.4 01/16/2015 [facility] ELECTROLYTES Sodium Lvl 143 meq/L 135 - 145 01/16/2015 [facility] ELECTROLYTES BUN 9 mg/dL 7 - 22 01/16/2015 [facility] ELECTROLYTES Glucose Lvl 74 mg/dL 70 - 99 01/16/2015 5Interpretive Data: Adult reference range values reflect the clinical guidelines of the [employer] [place] [employer]. [facility] ELECTROLYTES Potassium Lvl 3.5 meq/L 3.5 - 5.1 01/16/2015 [facility] HEMATOLOGY Segs-Bands # 4.0 K/CMM 1.5 - 8.1 01/16/2015 [facility] HEMATOLOGY Basophils 0.0 % 0.0 - 1.0 01/16/2015 [facility] HEMATOLOGY Lymphocytes # 3.2 K/CMM 1.0 - 5.5 01/16/2015 [facility] HEMATOLOGY Basophils # 0.0 K/CMM 0.0 - 0.2 01/16/2015 [facility] HEMATOLOGY Monocytes # 0.5 K/CMM 0.0 - 0.8 01/16/2015 [facility] HEMATOLOGY Eosinophils # 0.3 K/CMM 0.0 - 0.5 01/16/2015 [facility] HEMATOLOGY Eosinophils 3.7 % 0.0 - 4.0 01/16/2015 [facility] HEMATOLOGY Monocytes 6.1 % 2.0 - 12.0 01/16/2015 [facility] HEMATOLOGY Lymphocytes 40.2 % 20.0 - 40.0 01/16/2015 [facility] HEMATOLOGY Segs 50.0 % 45.0 - 75.0 01/16/2015 [facility] HEMATOLOGY MCV 88.9 fL 80.0 - 98.0 01/16/2015 [facility] HEMATOLOGY MCH 29.6 pg 27.0 - 31.0 01/16/2015 [facility] HEMATOLOGY RDW 13.5 % 11.5 - 14.5 01/16/2015 [facility] HEMATOLOGY MCHC 33.4 g/dL 32.0 - 36.0 01/16/2015 [facility] HEMATOLOGY MPV 8.8 fL 7.4 - 10.4 01/16/2015 [facility] HEMATOLOGY Platelet 278 K/CMM 133 - 450 01/16/2015 [facility] HEMATOLOGY RBC 3.84 M/CMM 4.20 - 5.40 01/16/2015 [facility] HEMATOLOGY WBC 8.0 K/CMM 3.7 - 10.4 01/16/2015 [facility] HEMATOLOGY Hct 34.1 % 36.0 - 48.0 01/16/2015 [facility] HEMATOLOGY Hgb 11.4 g/dL 12.0 - 16.0 01/16/2015 [facility] CHEM PANEL eGFR 139 mL/min/1.73m2 01/11/2015 3Result Comment: The eGFR is calculated using the CKD-EPI formula. In most young, healthy individuals the eGFR will be >90 mL/min/1.73m2. The eGFR declines with age. An eGFR of 60-89 may be normal in some populations, particularly the elderly, for whom the CKD-EPI formula has not been extensively validated. Use of the eGFR is not recommended in the following populations: Individuals with unstable creatinine concentrations, including patients and those with serious co-morbid conditions. Patients with extremes in muscle mass or diet. The data above are obtained from the National Kid[employer] Disease Education Program (NKDEP) which additionally recommends that when the eGFR is used in patients with extremes of body mass index for purposes of drug dosing, the eGFR should be multiplied by the estimated BMI. [facility] CHEM PANEL Alk Phos 102 unit/L 39 - 136 01/11/2015 [facility] CHEM PANEL AST 38 unit/L 0 - 37 01/11/2015 [facility] CHEM PANEL Bili Total 0.3 mg/dL 0.2 - 1.3 01/11/2015 [facility] CHEM PANEL Potassium Lvl 3.5 meq/L 3.5 - 5.1 01/11/2015 [facility] CHEM PANEL Chloride Lvl 102 meq/L 95 - 109 01/11/2015 [facility] CHEM PANEL Sodium Lvl 142 meq/L 135 - 145 01/11/2015 [facility] CHEM PANEL Albumin Lvl 3.4 g/dL 3.5 - 5.0 01/11/2015 [facility] CHEM PANEL Total Protein 7.3 g/dL 6.4 - 8.4 01/11/2015 [facility] CHEM PANEL Calcium Lvl 8.7 mg/dL 8.5 - 10.5 01/11/2015 [facility] CHEM PANEL CO2 28 meq/L 24 - 32 01/11/2015 [facility] CHEM PANEL ALT 63 unit/L 0 - 65 01/11/2015 [facility] CHEM PANEL Glucose Lvl 72 mg/dL 70 - 99 01/11/2015 6Interpretive Data: Adult reference range values reflect the clinical guidelines of the [employer] [place] [employer]. [facility] CHEM PANEL Creatinine Lvl 0.4 mg/dL 0.5 - 1.4 01/11/2015 [facility] CHEM PANEL BUN 9 mg/dL 7 - 22 01/11/2015 [facility] CHEM PANEL B/C Ratio 22 6 - 25 01/11/2015 [facility] CHEM PANEL Globulin 3.9 g/dL 2.0 - 4.0 01/11/2015 [facility] CHEM PANEL AGAP 15.5 meq/L 10.0 - 20.0 01/11/2015 [facility] CHEM PANEL A/G Ratio 0.9 0.7 - 1.6 01/11/2015 [facility] HEMATOLOGY Eosinophils # 0.3 K/CMM 0.0 - 0.5 01/11/2015 [facility] HEMATOLOGY Monocytes # 0.5 K/CMM 0.0 - 0.8 01/11/2015 [facility] HEMATOLOGY Lymphocytes # 2.7 K/CMM 1.0 - 5.5 01/11/2015 [facility] HEMATOLOGY Basophils # 0.0 K/CMM 0.0 - 0.2 01/11/2015 [facility] HEMATOLOGY Segs 51.7 % 45.0 - 75.0 01/11/2015 [facility] HEMATOLOGY Lymphocytes 37.2 % 20.0 - 40.0 01/11/2015 [facility] HEMATOLOGY Eosinophils 4.4 % 0.0 - 4.0 01/11/2015 [facility] HEMATOLOGY Monocytes 6.5 % 2.0 - 12.0 01/11/2015 [facility] HEMATOLOGY Segs-Bands # 3.8 K/CMM 1.5 - 8.1 01/11/2015 [facility] HEMATOLOGY Basophils 0.2 % 0.0 - 1.0 01/11/2015 [facility] HEMATOLOGY Hgb 10.7 g/dL 12.0 - 16.0 01/11/2015 [facility] HEMATOLOGY MCV 88.3 fL 80.0 - 98.0 01/11/2015 [facility] HEMATOLOGY Hct 32.5 % 36.0 - 48.0 01/11/2015 [facility] HEMATOLOGY MCHC 33.0 g/dL 32.0 - 36.0 01/11/2015 [facility] HEMATOLOGY MCH 29.1 pg 27.0 - 31.0 01/11/2015 [facility] HEMATOLOGY Platelet 311 K/CMM 133 - 450 01/11/2015 [facility] HEMATOLOGY RDW 13.2 % 11.5 - 14.5 01/11/2015 [facility] HEMATOLOGY MPV 9.0 fL 7.4 - 10.4 01/11/2015 [facility] HEMATOLOGY WBC 7.3 K/CMM 3.7 - 10.4 01/11/2015 [facility] HEMATOLOGY RBC 3.68 M/CMM 4.20 - 5.40 01/11/2015 [facility] THYROID PANEL TSH 4.420 uIU/mL 0.360 - 3.740 01/11/2015 [facility] THYROID PANEL T4 9.8 ug/dl 4.7 - 13.3 01/11/2015 [facility] THYROID PANEL T3 Uptake 33 % 31 - 39 01/11/2015 [facility] THYROID PANEL FTI 3.2 01/11/2015 [facility] THYROID PANEL FTI 4.3 12/30/2014 [facility] THYROID PANEL T3 Uptake 37 % 31 - 39 12/30/2014 [facility] THYROID PANEL TSH 5.940 uIU/mL 0.360 - 3.740 12/30/2014 [facility] THYROID PANEL T4 11.7 ug/dl 4.7 - 13.3 12/30/2014 [facility] ANEMIA STUDY Ferritin Lvl 50 ng/mL 5 - 204 12/29/2014 [facility] ANEMIA STUDY TIBC 334 ug/dl 228 - 428 12/29/2014 [facility] ANEMIA STUDY Iron 52 ug/dl 30 - 160 12/29/2014 [facility] ANEMIA STUDY UIBC 282 ug/dl 110 - 370 12/29/2014 [facility] ANEMIA STUDY % Satur Fe 16 % 12 - 57 12/29/2014 [facility] CHEM PANEL Magnesium Lvl 2.5 mg/dL 1.8 - 2.4 12/29/2014 [facility] CHEM PANEL Phosphorus 4.7 mg/dL 2.5 - 4.5 12/29/2014 [facility] CHEM PANEL Total Protein 7.1 g/dL 6.4 - 8.4 12/29/2014 [facility] CHEM PANEL Albumin Lvl 3.4 g/dL 3.5 - 5.0 12/29/2014 [facility] CHEM PANEL AST 25 unit/L 0 - 37 12/29/2014 [facility] CHEM PANEL ALT 48 unit/L 0 - 65 12/29/2014 [facility] CHEM PANEL Alk Phos 110 unit/L 39 - 136 12/29/2014 [facility] CHEM PANEL Bili Total 0.2 mg/dL 0.2 - 1.3 12/29/2014 [facility] CHEM PANEL B/C Ratio 14 6 - 25 12/29/2014 [facility] CHEM PANEL Globulin 3.7 g/dL 2.0 - 4.0 12/29/2014 [facility] CHEM PANEL A/G Ratio 0.9 0.7 - 1.6 12/29/2014 [facility] HEMATOLOGY PTT 35.4 s 22.9 - 35.8 12/29/2014 [facility] LIPIDS VLDL 47 12/29/2014 [facility] LIPIDS LDL (Calculated) 77 mg/dL <=99 mg/dL 12/29/2014 [facility] LIPIDS HDL 31 mg/dL >=61 mg/dL 12/29/2014 [facility] LIPIDS Chol 155 mg/dL <=199 mg/dL 12/29/2014 [facility] LIPIDS Trig 234 mg/dL <=149 mg/dL 12/29/2014 [facility] LIPIDS CHD Risk 5.00 3.90 - 5.80 12/29/2014 [facility] SPECIAL CHEMISTRY Hgb A1C 4.8 % <=5.6 % 12/29/2014 [facility] THYROID PANEL TSH 10.600 uIU/mL 0.360 - 3.740 12/29/2014 [facility] THYROID PANEL T4 Free 1.10 ng/dL 0.76 - 1.46 12/29/2014 [facility] URINE AND STOOL UA Blood Small *ABN* (12/29/14 5:06 AM) Negative 12/29/2014 [facility] URINE AND STOOL UA Ketones Negative *NA* (12/29/14 5:06 AM) Negative 12/29/2014 [facility] URINE AND STOOL UA Bili Negative *NA* (12/29/14 5:06 AM) Negative 12/29/2014 [facility] URINE AND STOOL UA Urobilinogen 0.2 EU/dL 0.1 - 1.0 12/29/2014 [facility] URINE AND STOOL UA Leuk Est Large *ABN* (12/29/14 5:06 AM) Negative 12/29/2014 [facility] URINE AND STOOL UA Nitrite Positive *ABN* (12/29/14 5:06 AM) Negative 12/29/2014 [facility] URINE AND STOOL UA Glucose Negative (12/29/14 5:06 AM) Negative 12/29/2014 [facility] URINE AND STOOL UA Color Yellow *NA* (12/29/14 5:06 AM) Yellow 12/29/2014 [facility] URINE AND STOOL UA Protein Negative (12/29/14 5:06 AM) Negative 12/29/2014 [facility] URINE AND STOOL UA Spec Grav 1.015 <=1.030 12/29/2014 [facility] URINE AND STOOL UA pH 7.0 5.0 - 8.0 12/29/2014 [facility] URINE AND STOOL UA Turbidity Slight Cloudy (12/29/14 5:06 AM) Clear 12/29/2014 [facility] URINE AND STOOL UA Bacteria Many /HPF None Seen /HPF 12/29/2014 [facility] URINE AND STOOL UA Sq Epi Rare /LPF Few /LPF 12/29/2014 [facility] URINE AND STOOL UA WBC 11-20 /HPF None Seen /HPF 12/29/2014 [facility] URINE AND STOOL UA RBC 3-5 /HPF 0 - 2 12/29/2014 [facility] URINE AND STOOL UA Blood Large *ABN* (11/16/14 11:35 AM) Negative 11/16/2014 [facility] URINE AND STOOL UA Glucose Negative (11/16/14 11:35 AM) Negative 11/16/2014 [facility] URINE AND STOOL UA Urobilinogen 0.2 EU/dL 0.1 - 1.0 11/16/2014 [facility] URINE AND STOOL UA Ketones Negative *NA* (11/16/14 11:35 AM) Negative 11/16/2014 [facility] URINE AND STOOL UA Bili Negative *NA* (11/16/14 11:35 AM) Negative 11/16/2014 [facility] URINE AND STOOL UA Nitrite Negative (11/16/14 11:35 AM) Negative 11/16/2014 [facility] URINE AND STOOL UA pH 6.5 5.0 - 8.0 11/16/2014 [facility] URINE AND STOOL UA Protein Negative (11/16/14 11:35 AM) Negative 11/16/2014 [facility] URINE AND STOOL UA Turbidity Slight Cloudy (11/16/14 11:35 AM) Clear 11/16/2014 [facility] URINE AND STOOL UA Spec Grav 1.010 <=1.030 11/16/2014 [facility] URINE AND STOOL UA Leuk Est Moderate *ABN* (11/16/14 11:35 AM) Negative 11/16/2014 [facility] URINE AND STOOL UA Color Yellow *NA* (11/16/14 11:35 AM) Yellow 11/16/2014 [facility] URINE AND STOOL UA Sq Epi Rare /LPF Few /LPF 11/16/2014 [facility] URINE AND STOOL UA WBC 11-20 /HPF None Seen /HPF 11/16/2014 [facility] URINE AND STOOL UA RBC 11-20 /HPF 0 - 2 11/16/2014 [facility] URINE AND STOOL UA Bacteria Few /HPF None Seen /HPF 11/16/2014 [facility] HEMATOLOGY INR 2.30 0.85 - 1.17 11/16/2014 8Interpretive Data: RECOMMENDED RANGES FOR PROTIME INR: 2.0-3.0 for most medical and surgical thromboembolic states. 2.5-3.5 for artificial heart valves and recurrent embolism. INR SHOULD BE USED ONLY FOR PATIENTS ON STABLE ANTICOAGULANT THERAPY. [facility] HEMATOLOGY PT 26.0 s 12.0 - 14.7 11/16/2014 [facility] CHEM PANEL Phosphorus 4.6 mg/dL 2.5 - 4.5 11/14/2014 [facility] CHEM PANEL eGFR 129 mL/min/1.73m2 11/14/2014 1Result Comment: The eGFR is calculated using the CKD-EPI formula. In most young, healthy individuals the eGFR will be >90 mL/min/1.73m2. The eGFR declines with age. An eGFR of 60-89 may be normal in some populations, particularly the elderly, for whom the CKD-EPI formula has not been extensively validated. Use of the eGFR is not recommended in the following populations: Individuals with unstable creatinine concentrations, including patients and those with serious co-morbid conditions. Patients with extremes in muscle mass or diet. The data above are obtained from the National Kid[employer] Disease Education Program (NKDEP) which additionally recommends that when the eGFR is used in patients with extremes of body mass index for purposes of drug dosing, the eGFR should be multiplied by the estimated BMI. [facility] CHEM PANEL Sodium Lvl 141 meq/L 135 - 145 11/14/2014 [facility] CHEM PANEL Creatinine Lvl 0.5 mg/dL 0.5 - 1.4 11/14/2014 [facility] CHEM PANEL Potassium Lvl 3.7 meq/L 3.5 - 5.1 11/14/2014 [facility] CHEM PANEL Chloride Lvl 103 meq/L 95 - 109 11/14/2014 [facility] CHEM PANEL Calcium Lvl 8.8 mg/dL 8.5 - 10.5 11/14/2014 [facility] CHEM PANEL CO2 30 meq/L 24 - 32 11/14/2014 [facility] CHEM PANEL BUN 6 mg/dL 7 - 22 11/14/2014 [facility] CHEM PANEL Glucose Lvl 91 mg/dL 70 - 99 11/14/2014 4Interpretive Data: Adult reference range values reflect the clinical guidelines of the [place] [employer]. [facility] CHEM PANEL AGAP 11.7 meq/L 10.0 - 20.0 11/14/2014 [facility] CHEM PANEL Magnesium Lvl 1.9 mg/dL 1.8 - 2.4 11/14/2014 [facility] HEMATOLOGY Lymphocytes # 1.6 K/CMM 1.0 - 5.5 11/14/2014 [facility] HEMATOLOGY Monocytes # 0.4 K/CMM 0.0 - 0.8 11/14/2014 [facility] HEMATOLOGY Eosinophils # 0.7 K/CMM 0.0 - 0.5 11/14/2014 [facility] HEMATOLOGY Basophils 0.9 % 0.0 - 1.0 11/14/2014 [facility] HEMATOLOGY Segs-Bands # 3.2 K/CMM 1.5 - 8.1 11/14/2014 [facility] HEMATOLOGY Eosinophils 11.0 % 0.0 - 4.0 11/14/2014 [facility] HEMATOLOGY Lymphocytes 26.6 % 20.0 - 40.0 11/14/2014 [facility] HEMATOLOGY Monocytes 7.1 % 2.0 - 12.0 11/14/2014 [facility] HEMATOLOGY Segs 54.4 % 45.0 - 75.0 11/14/2014 [facility] HEMATOLOGY Basophils # 0.1 K/CMM 0.0 - 0.2 11/14/2014 [facility] HEMATOLOGY PT 26.2 s 12.0 - 14.7 11/14/2014 [facility] HEMATOLOGY INR 2.32 0.85 - 1.17 11/14/2014 9Interpretive Data: RECOMMENDED RANGES FOR PROTIME INR: 2.0-3.0 for most medical and surgical thromboembolic states. 2.5-3.5 for artificial heart valves and recurrent embolism. INR SHOULD BE USED ONLY FOR PATIENTS ON STABLE ANTICOAGULANT THERAPY. [facility] HEMATOLOGY RBC 3.93 M/CMM 4.20 - 5.40 11/14/2014 [facility] HEMATOLOGY WBC 6.0 K/CMM 3.7 - 10.4 11/14/2014 [facility] HEMATOLOGY Hgb 11.9 g/dL 12.0 - 16.0 11/14/2014 [facility] HEMATOLOGY MCH 30.3 pg 27.0 - 31.0 11/14/2014 [facility] HEMATOLOGY MCV 89.3 fL 80.0 - 98.0 11/14/2014 [facility] HEMATOLOGY Hct 35.0 % 36.0 - 48.0 11/14/2014 [facility] HEMATOLOGY MPV 9.0 fL 7.4 - 10.4 11/14/2014 [facility] HEMATOLOGY MCHC 33.9 g/dL 32.0 - 36.0 11/14/2014 [facility] HEMATOLOGY Platelet 304 K/CMM 133 - 450 11/14/2014 [facility] HEMATOLOGY RDW 16.1 % 11.5 - 14.5 11/14/2014 [facility] CHEM PANEL B/C Ratio 18 6 - 25 11/11/2014 [facility] CHEM PANEL A/G Ratio 0.9 0.7 - 1.6 11/11/2014 [facility] CHEM PANEL Globulin 3.5 g/dL 2.0 - 4.0 11/11/2014 [facility] CHEM PANEL AGAP 10.8 meq/L 10.0 - 20.0 11/11/2014 [facility] CHEM PANEL eGFR 139 mL/min/1.73m2 11/11/2014 2Result Comment: The eGFR is calculated using the CKD-EPI formula. In most young, healthy individuals the eGFR will be >90 mL/min/1.73m2. The eGFR declines with age. An eGFR of 60-89 may be normal in some populations, particularly the elderly, for whom the CKD-EPI formula has not been extensively validated. Use of the eGFR is not recommended in the following populations: Individuals with unstable creatinine concentrations, including patients and those with serious co-morbid conditions. Patients with extremes in muscle mass or diet. The data above are obtained from the National Kid[employer] Disease Education Program (NKDEP) which additionally recommends that when the eGFR is used in patients with extremes of body mass index for purposes of drug dosing, the eGFR should be multiplied by the estimated BMI. [facility] CHEM PANEL Albumin Lvl 3.0 g/dL 3.5 - 5.0 11/11/2014 [facility] CHEM PANEL ALT 63 unit/L 0 - 65 11/11/2014 [facility] CHEM PANEL AST 45 unit/L 0 - 37 11/11/2014 [facility] CHEM PANEL Alk Phos 100 unit/L 39 - 136 11/11/2014 [facility] CHEM PANEL Bili Total 0.3 mg/dL 0.2 - 1.3 11/11/2014 [facility] CHEM PANEL Creatinine Lvl 0.4 mg/dL 0.5 - 1.4 11/11/2014 [facility] CHEM PANEL BUN 7 mg/dL 7 - 22 11/11/2014 [facility] CHEM PANEL Glucose Lvl 99 mg/dL 70 - 99 11/11/2014 5Interpretive Data: Adult reference range values reflect the clinical guidelines of the [place] [employer]. [facility] CHEM PANEL Calcium Lvl 8.6 mg/dL 8.5 - 10.5 11/11/2014 [facility] CHEM PANEL Potassium Lvl 3.8 meq/L 3.5 - 5.1 11/11/2014 [facility] CHEM PANEL Total Protein 6.5 g/dL 6.4 - 8.4 11/11/2014 [facility] CHEM PANEL Sodium Lvl 141 meq/L 135 - 145 11/11/2014 [facility] CHEM PANEL CO2 29 meq/L 24 - 32 11/11/2014 [facility] CHEM PANEL Chloride Lvl 105 meq/L 95 - 109 11/11/2014 [facility] HEMATOLOGY INR 2.51 0.85 - 1.17 11/11/2014 10Interpretive Data: RECOMMENDED RANGES FOR PROTIME INR: 2.0-3.0 for most medical and surgical thromboembolic states. 2.5-3.5 for artificial heart valves and recurrent embolism. INR SHOULD BE USED ONLY FOR PATIENTS ON STABLE ANTICOAGULANT THERAPY. [facility] HEMATOLOGY PT 27.9 s 12.0 - 14.7 11/11/2014 [facility] HEMATOLOGY Hgb 10.5 g/dL 12.0 - 16.0 11/11/2014 [facility] HEMATOLOGY RBC 3.57 M/CMM 4.20 - 5.40 11/11/2014 [facility] HEMATOLOGY WBC 5.7 K/CMM 3.7 - 10.4 11/11/2014 [facility] HEMATOLOGY Platelet 307 K/CMM 133 - 450 11/11/2014 [facility] HEMATOLOGY MPV 8.9 fL 7.4 - 10.4 11/11/2014 [facility] HEMATOLOGY MCH 29.4 pg 27.0 - 31.0 11/11/2014 [facility] HEMATOLOGY RDW 15.9 % 11.5 - 14.5 11/11/2014 [facility] HEMATOLOGY MCHC 33.0 g/dL 32.0 - 36.0 11/11/2014 [facility] HEMATOLOGY MCV 89.1 fL 80.0 - 98.0 11/11/2014 [facility] HEMATOLOGY Hct 31.8 % 36.0 - 48.0 11/11/2014 [facility] HEMATOLOGY Basophils # 0.0 K/CMM 0.0 - 0.2 11/11/2014 [facility] HEMATOLOGY Monocytes 7.5 % 2.0 - 12.0 11/11/2014 [facility] HEMATOLOGY Lymphocytes 28.9 % 20.0 - 40.0 11/11/2014 [facility] HEMATOLOGY Segs 53.8 % 45.0 - 75.0 11/11/2014 [facility] HEMATOLOGY Segs-Bands # 3.2 K/CMM 1.5 - 8.1 11/11/2014 [facility] HEMATOLOGY Basophils 0.4 % 0.0 - 1.0 11/11/2014 [facility] HEMATOLOGY Eosinophils 9.4 % 0.0 - 4.0 11/11/2014 [facility] HEMATOLOGY Monocytes # 0.4 K/CMM 0.0 - 0.8 11/11/2014 [facility] HEMATOLOGY Eosinophils # 0.5 K/CMM 0.0 - 0.5 11/11/2014 [facility] HEMATOLOGY Lymphocytes # 1.6 K/CMM 1.0 - 5.5 11/11/2014 [facility] HEMATOLOGY MPV 8.9 fL 7.4 - 10.4 11/08/2014 [facility] HEMATOLOGY Hgb 11.3 g/dL 12.0 - 16.0 11/08/2014 [facility] HEMATOLOGY RBC 3.85 M/CMM 4.20 - 5.40 11/08/2014 [facility] HEMATOLOGY WBC 8.6 K/CMM 3.7 - 10.4 11/08/2014 [facility] HEMATOLOGY MCV 88.7 fL 80.0 - 98.0 11/08/2014 [facility] HEMATOLOGY Hct 34.1 % 36.0 - 48.0 11/08/2014 [facility] HEMATOLOGY Platelet 341 K/CMM 133 - 450 11/08/2014 [facility] HEMATOLOGY RDW 15.8 % 11.5 - 14.5 11/08/2014 [facility] HEMATOLOGY MCHC 33.2 g/dL 32.0 - 36.0 11/08/2014 [facility] HEMATOLOGY MCH 29.5 pg 27.0 - 31.0 11/08/2014 [facility] URINE AND STOOL UA Urobilinogen <=1.0 mg/dL 0.1 - 1.0 11/07/2014 [facility] URINE AND STOOL UA Leuk Est Moderate *ABN* (11/07/14 6:47 PM) Negative 11/07/2014 [facility] URINE AND STOOL UA Nitrite Negative (11/07/14 6:47 PM) Negative 11/07/2014 [facility] URINE AND STOOL UA Blood Small *ABN* (11/07/14 6:47 PM) Negative 11/07/2014 [facility] URINE AND STOOL UA Galva Yeast Occasional /HPF None Seen /HPF 11/07/2014 [facility] URINE AND STOOL UA Mucus Few /LPF None Seen /LPF 11/07/2014 [facility] URINE AND STOOL UA Bacteria Occasional /HPF None Seen /HPF 11/07/2014 [facility] URINE AND STOOL UA RBC 27 /HPF 0 - 2 11/07/2014 [facility] URINE AND STOOL UA WBC 8 /HPF 0 - 5 11/07/2014 [facility] URINE AND STOOL UA Bili Negative *NA* (11/07/14 6:47 PM) Negative 11/07/2014 [facility] URINE AND STOOL UA Ketones Negative mg/dL Negative mg/dL 11/07/2014 [facility] URINE AND STOOL UA Glucose Negative mg/dL Negative mg/dL 11/07/2014 [facility] URINE AND STOOL UA Sq Epi None Seen 11/07/2014 [facility] URINE AND STOOL UA pH 6.5 5.0 - 8.0 11/07/2014 [facility] URINE AND STOOL UA Protein Negative mg/dL Negative mg/dL 11/07/2014 [facility] URINE AND STOOL UA Turbidity Clear (11/07/14 6:47 PM) Clear 11/07/2014 [facility] URINE AND STOOL UA Color Light Yellow *NA* (11/07/14 6:47 PM) Yellow 11/07/2014 [facility] URINE AND STOOL UA Spec Grav 1.008 <=1.030 11/07/2014 [facility] CHEM PANEL eGFR 139 mL/min/1.73m2 11/07/2014 3Result Comment: The eGFR is calculated using the CKD-EPI formula. In most young, healthy individuals the eGFR will be >90 mL/min/1.73m2. The eGFR declines with age. An eGFR of 60-89 may be normal in some populations, particularly the elderly, for whom the CKD-EPI formula has not been extensively validated. Use of the eGFR is not recommended in the following populations: Individuals with unstable creatinine concentrations, including patients and those with serious co-morbid conditions. Patients with extremes in muscle mass or diet. The data above are obtained from the National Kidney Disease Education Program (NKDEP) which additionally recommends that when the eGFR is used in patients with extremes of body mass index for purposes of drug dosing, the eGFR should be multiplied by the estimated BMI. [facility] CHEM PANEL Glucose Lvl 96 mg/dL 70 - 99 11/07/2014 6Interpretive Data: Adult reference range values reflect the clinical guidelines of the [place] [employer]. [facility] CHEM PANEL BUN 6 mg/dL 7 - 22 11/07/2014 [facility] CHEM PANEL Chloride Lvl 105 meq/L 95 - 109 11/07/2014 [facility] CHEM PANEL CO2 29 meq/L 24 - 32 11/07/2014 [facility] CHEM PANEL Creatinine Lvl 0.4 mg/dL 0.5 - 1.4 11/07/2014 [facility] CHEM PANEL Calcium Lvl 8.8 mg/dL 8.5 - 10.5 11/07/2014 [facility] CHEM PANEL Sodium Lvl 142 meq/L 135 - 145 11/07/2014 [facility] CHEM PANEL Potassium Lvl 3.6 meq/L 3.5 - 5.1 11/07/2014 [facility] CHEM PANEL AGAP 11.6 meq/L 10.0 - 20.0 11/07/2014 [facility] CHEM PANEL Magnesium Lvl 2.0 mg/dL 1.8 - 2.4 11/07/2014 [facility] CHEM PANEL Phosphorus 5.7 mg/dL 2.5 - 4.5 11/07/2014 [facility] HEMATOLOGY Eosinophils 6.6 % 0.0 - 4.0 11/07/2014 [facility] HEMATOLOGY Monocytes # 0.4 K/CMM 0.0 - 0.8 11/07/2014 [facility] HEMATOLOGY Basophils 0.9 % 0.0 - 1.0 11/07/2014 [facility] HEMATOLOGY Lymphocytes # 1.7 K/CMM 1.0 - 5.5 11/07/2014 [facility] HEMATOLOGY Segs-Bands # 3.3 K/CMM 1.5 - 8.1 11/07/2014 [facility] HEMATOLOGY Monocytes 6.4 % 2.0 - 12.0 11/07/2014 [facility] HEMATOLOGY Eosinophils # 0.4 K/CMM 0.0 - 0.5 11/07/2014 [facility] HEMATOLOGY Basophils # 0.1 K/CMM 0.0 - 0.2 11/07/2014 [facility] HEMATOLOGY Segs 57.8 % 45.0 - 75.0 11/07/2014 [facility] HEMATOLOGY Lymphocytes 28.3 % 20.0 - 40.0 11/07/2014 [facility] CHEM PANEL Globulin 3.6 g/dL 2.0 - 4.0 11/01/2014 [facility] CHEM PANEL Bili Total 0.2 mg/dL 0.2 - 1.3 11/01/2014 [facility] CHEM PANEL ALT 52 unit/L 0 - 65 11/01/2014 [facility] CHEM PANEL A/G Ratio 0.7 0.7 - 1.6 11/01/2014 [facility] CHEM PANEL Alk Phos 84 unit/L 39 - 136 11/01/2014 [facility] CHEM PANEL AST 45 unit/L 0 - 37 11/01/2014 [facility] CHEM PANEL B/C Ratio 10 6 - 25 11/01/2014 [facility] CHEM PANEL Albumin Lvl 2.6 g/dL 3.5 - 5.0 11/01/2014 [facility] CHEM PANEL Total Protein 6.2 g/dL 6.4 - 8.4 11/01/2014 [facility] HEMATOLOGY Plt Morph See Note 7 (11/01/14 4:00 AM) 11/01/2014 7Result Comment: Few platelet clumps seen on smear, the actual platelet count might be slightly higher. [facility] CHEM PANEL Phosphorus 5.3 mg/dL 2.5 - 4.5 10/31/2014 [facility] CHEM PANEL Magnesium Lvl 2.2 mg/dL 1.8 - 2.4 10/31/2014 [facility] CHEM PANEL Globulin 4.1 g/dL 2.0 - 4.0 10/28/2014 [facility] CHEM PANEL A/G Ratio 0.5 0.7 - 1.6 10/28/2014 [facility] CHEM PANEL B/C Ratio 10 6 - 25 10/28/2014 [facility] CHEM PANEL Total Protein 6.3 g/dL 6.4 - 8.4 10/28/2014 [facility] CHEM PANEL Albumin Lvl 2.2 g/dL 3.5 - 5.0 10/28/2014 [facility] CHEM PANEL Bili Total 0.2 mg/dL 0.2 - 1.3 10/28/2014 [facility] CHEM PANEL Alk Phos 76 unit/L 39 - 136 10/28/2014 [facility] CHEM PANEL ALT 45 unit/L 0 - 65 10/28/2014 [facility] CHEM PANEL AST 46 unit/L 0 - 37 10/28/2014 [facility] URINE AND STOOL UA Leuk Est Moderate *ABN* (10/28/14 6:45 AM) Negative 10/28/2014 [facility] URINE AND STOOL UA Nitrite Negative (10/28/14 6:45 AM) Negative 10/28/2014 [facility] URINE AND STOOL UA Color Yellow *NA* (10/28/14 6:45 AM) Yellow 10/28/2014 [facility] URINE AND STOOL UA Blood Trace *ABN* (10/28/14 6:45 AM) Negative 10/28/2014 [facility] URINE AND STOOL UA Urobilinogen 0.2 EU/dL 0.1 - 1.0 10/28/2014 [facility] URINE AND STOOL UA Spec Grav 1.010 <=1.030 10/28/2014 [facility] URINE AND STOOL UA pH 7.0 5.0 - 8.0 10/28/2014 [facility] URINE AND STOOL UA Turbidity Slight Cloudy (10/28/14 6:45 AM) Clear 10/28/2014 [facility] URINE AND STOOL UA Bili Negative *NA* (10/28/14 6:45 AM) Negative 10/28/2014 [facility] URINE AND STOOL UA Ketones Negative *NA* (10/28/14 6:45 AM) Negative 10/28/2014 [facility] URINE AND STOOL UA Glucose Negative (10/28/14 6:45 AM) Negative 10/28/2014 [facility] URINE AND STOOL UA Protein Negative (10/28/14 6:45 AM) Negative 10/28/2014 [facility] URINE AND STOOL UA Sq Epi None Seen (10/28/14 6:45 AM) Few 10/28/2014 [facility] URINE AND STOOL UA Bacteria Occasional /HPF None Seen /HPF 10/28/2014 [facility] URINE AND STOOL UA RBC 3-5 /HPF 0 - 2 10/28/2014 [facility] URINE AND STOOL UA WBC 11-20 /HPF None Seen /HPF 10/28/2014 [facility] HEMATOLOGY Polychrom Moderate *ABN* (10/22/14 3:33 AM) None Seen 10/22/2014 [facility] HEMATOLOGY Anisocyte 1+ *ABN* (10/22/14 3:33 AM) None Seen 10/22/2014 [facility] HEMATOLOGY Tot Cell Ct 100 10/22/2014 [facility] HEMATOLOGY Plt Morph Normal (10/22/14 3:33 AM) 10/22/2014 [facility] HEMATOLOGY NRBC 1 /100WB 10/22/2014 [facility] HEMATOLOGY Atypical Lymphs 0.0 % <=0.0 % 10/22/2014 [facility] HEMATOLOGY Bands 1.0 % 0.0 - 11.0 10/22/2014 [facility] URINE AND STOOL UA Galva Yeast Occasional /HPF None Seen /HPF 10/19/2014 [facility] ANEMIA STUDY Iron 24 ug/dl 30 - 160 10/19/2014 [facility] AN[facility]IA ST[facility] TIBC 188 ug/dl 228 - 428 10/19/2014 [facility] ANEMIA STUD[facility] UIBC 164 ug/dl 110 - 370 10/19/2014 [facility] ANEMIA STUD[facility] % Satur Fe 13 % 12 - 57 10/19/2014 [facility] ANEMIA STUD[facility] Ferritin Lvl 467 ng/mL 5 - 204 10/19/2014 [facility] HEMATOLOGY Sed Rate >100 mm/hr 0 - 20 10/19/2014 [facility] LIPIDS VLDL 26 10/19/2014 [facility] LIPIDS LDL (Calculated) 92 mg/dL <=99 mg/dL 10/19/2014 [facility] LIPIDS HDL 30 mg/dL >=61 mg/dL 10/19/2014 [facility] LIPIDS Chol 148 mg/dL <=199 mg/dL 10/19/2014 [facility] LIPIDS Trig 132 mg/dL <=149 mg/dL 10/19/2014 [facility] LIPIDS CHD Risk 4.93 3.90 - 5.80 10/19/2014 [facility] SPECIAL CHEMISTRY Hgb A1C 5.5 % <=5.6 % 10/19/2014 [facility] HEMATOLOGY PTT 47.3 s 22.9 - 35.8 10/19/2014 11Interpretive Data: Heparin Therapeutic Range: 57 - 92 Seconds [facility] Vital Signs Vital Sign Value Date Comments Source Heart Rate 54 10/28/2017 [facility] Systolic (mm Hg) 125 10/28/2017 [facility] Diastolic (mm Hg) 81 10/28/2017 [facility] Systolic (mm Hg) 160 10/13/2017 [facility] Diastolic (mm Hg) 107 10/13/2017 [facility] Weight 92.727 09/16/2017 [facility] BMI Calculated 32.02 09/16/2017 [facility] Height 170.18 cm 09/16/2017 [facility] Heart Rate 76 09/16/2017 [facility] Respitory Rate 20 09/16/2017 [facility] Systolic (mm Hg) 143 09/16/2017 [facility] Diastolic (mm Hg) 93 09/16/2017 [facility] Heart Rate 64 07/17/2017 [facility] Systolic (mm Hg) 141 07/17/2017 [facility] Diastolic (mm Hg) 80 07/17/2017 [facility] Heart Rate 74 05/05/2017 [facility] Systolic (mm Hg) 147 05/05/2017 [facility] Diastolic (mm Hg) 84 05/05/2017 [facility] Systolic (mm Hg) 145 04/07/2017 [facility] Diastolic (mm Hg) 84 04/07/2017 [facility] Heart Rate 62 04/07/2017 [facility] BMI Calculated 39.21 04/02/2017 [facility] Weight 113.545 04/02/2017 [facility] Heart Rate 76 04/02/2017 [facility] Systolic (mm Hg) 138 04/02/2017 [facility] Diastolic (mm Hg) 85 04/02/2017 [facility] Height 170.18 cm 04/02/2017 [facility] Heart Rate 83 03/04/2017 [facility] Respitory Rate 20 03/04/2017 [facility] Temperature Oral (F) 98.2 F 03/04/2017 [facility] Systolic (mm Hg) 143 03/04/2017 [facility] Diastolic (mm Hg) 94 03/04/2017 [facility] BMI Calculated 40.34 03/04/2017 [facility] Height 170.18 cm 03/04/2017 [facility] Weight 116.818 03/04/2017 [facility] Systolic (mm Hg) 134 03/03/2017 [facility] Diastolic (mm Hg) 94 03/03/2017 [facility] Heart Rate 79 03/03/2017 [facility] Heart Rate 89 10/28/2016 [facility] Systolic (mm Hg) 147 10/28/2016 [facility] Diastolic (mm Hg) 105 10/28/2016 [facility] Heart Rate 80 10/11/2016 [facility] Systolic (mm Hg) 136 10/11/2016 [facility] Diastolic (mm Hg) 88 10/11/2016 [facility] BMI Calculated 40.34 09/12/2016 [facility] Weight 116.818 09/12/2016 [facility] Systolic (mm Hg) 115 09/12/2016 [facility] Diastolic (mm Hg) 78 09/12/2016 [facility] Respitory Rate 20 09/12/2016 [facility] Heart Rate 101 09/12/2016 [facility] Height 170.18 cm 09/12/2016 [facility] Systolic (mm Hg) 140 04/19/2016 [facility] Diastolic (mm Hg) 92 04/19/2016 [facility] Systolic (mm Hg) 145 04/12/2016 [facility] Diastolic (mm Hg) 87 04/12/2016 [facility] Weight 111.364 04/11/2016 [facility] Heart Rate 86 04/11/2016 [facility] Temperature Oral (F) 98.3 F 04/11/2016 [facility] Respitory Rate 20 04/11/2016 [facility] BMI Calculated 38.45 04/11/2016 [facility] Height 170.18 cm 04/11/2016 [facility] Systolic (mm Hg) 155 04/11/2016 [facility] Diastolic (mm Hg) 95 04/11/2016 [facility] Height 170.18 cm 03/27/2016 [facility] BMI Calculated 37.67 03/27/2016 [facility] Weight 109.091 03/27/2016 [facility] Heart Rate 83 03/27/2016 [facility] Respitory Rate 18 03/27/2016 [facility] Systolic (mm Hg) 152 03/27/2016 [facility] Diastolic (mm Hg) 95 03/27/2016 [facility] Systolic (mm Hg) 122 03/01/2016 [facility] Diastolic (mm Hg) 76 03/01/2016 [facility] Heart Rate 84 03/01/2016 [facility] Systolic (mm Hg) 134 02/26/2016 [facility] Diastolic (mm Hg) 90 02/26/2016 [facility] Systolic (mm Hg) 128 12/15/2015 [facility] Diastolic (mm Hg) 71 12/15/2015 [facility] Heart Rate 72 12/15/2015 [facility] Weight 106.818 12/11/2015 [facility] Heart Rate 87 12/11/2015 [facility] Respitory Rate 20 12/11/2015 [facility] BMI Calculated 36.88 12/11/2015 [facility] Height 170.18 cm 12/11/2015 [facility] Systolic (mm Hg) 133 12/11/2015 [facility] Diastolic (mm Hg) 93 12/11/2015 [facility] Systolic (mm Hg) 128 11/29/2015 [facility] Diastolic (mm Hg) 71 11/29/2015 [facility] Heart Rate 72 11/29/2015 [facility] Systolic (mm Hg) 117 11/22/2015 [facility] Diastolic (mm Hg) 76 11/22/2015 [facility] Heart Rate 76 11/22/2015 [facility] Respitory Rate 15 11/14/2015 [facility] Heart Rate 90 11/14/2015 [facility] Temperature Oral (F) 98.2 F 11/14/2015 [facility] Systolic (mm Hg) 157 11/14/2015 [facility] Diastolic (mm Hg) 94 11/14/2015 [facility] BMI Calculated 35.04 11/14/2015 [facility] Weight 104.545 11/14/2015 [facility] Height 172.72 cm 11/14/2015 [facility] Heart Rate 111 11/14/2015 [facility] Systolic (mm Hg) 158 11/14/2015 [facility] Diastolic (mm Hg) 98 11/14/2015 [facility] Temperature Oral (F) 97.4 F 11/14/2015 [facility] Respitory Rate 18 11/14/2015 [facility] Heart Rate 82 11/08/2015 [facility] Systolic (mm Hg) 122 11/08/2015 [facility] Diastolic (mm Hg) 80 11/08/2015 [facility] Heart Rate 68 10/18/2015 [facility] Systolic (mm Hg) 128 10/18/2015 [facility] Diastolic (mm Hg) 69 10/18/2015 [facility] Height 170.18 cm 10/12/2015 [facility] Weight 106.818 10/12/2015 [facility] BMI Calculated 36.88 10/12/2015 [facility] Systolic (mm Hg) 136 10/12/2015 [facility] Diastolic (mm Hg) 85 10/12/2015 [facility] Respitory Rate 20 10/12/2015 [facility] Heart Rate 73 10/12/2015 [facility] Heart Rate 71 10/11/2015 [facility] Systolic (mm Hg) 127 10/11/2015 [facility] Diastolic (mm Hg) 69 10/11/2015 [facility] Heart Rate 68 10/04/2015 [facility] Systolic (mm Hg) 145 10/04/2015 [facility] Diastolic (mm Hg) 89 10/04/2015 [facility] Heart Rate 85 09/20/2015 [facility] Systolic (mm Hg) 145 09/20/2015 [facility] Diastolic (mm Hg) 91 09/20/2015 [facility] Systolic (mm Hg) 130 09/15/2015 [facility] Diastolic (mm Hg) 87 09/15/2015 [facility] Heart Rate 93 09/15/2015 [facility] Temperature Oral (F) 99 F 09/12/2015 [facility] Height 170.18 cm 09/12/2015 [facility] Weight 106.818 09/12/2015 [facility] BMI Calculated 36.88 09/12/2015 [facility] Respitory Rate 20 09/12/2015 [facility] Systolic (mm Hg) 141 09/12/2015 [facility] Diastolic (mm Hg) 83 09/12/2015 [facility] Heart Rate 88 09/12/2015 [facility] Height 170.18 cm 09/11/2015 [facility] BMI Calculated 36.88 09/11/2015 [facility] Weight 106.818 09/11/2015 [facility] Respitory Rate 20 09/11/2015 [facility] Heart Rate 97 09/11/2015 [facility] Systolic (mm Hg) 148 09/11/2015 [facility] Diastolic (mm Hg) 92 09/11/2015 [facility] Heart Rate 98 09/09/2015 [facility] Systolic (mm Hg) 113 09/09/2015 [facility] Diastolic (mm Hg) 75 09/09/2015 [facility] Heart Rate 68 08/25/2015 [facility] Systolic (mm Hg) 134 08/25/2015 [facility] Diastolic (mm Hg) 86 08/25/2015 [facility] Heart Rate 85 08/23/2015 [facility] Systolic (mm Hg) 126 08/23/2015 [facility] Diastolic (mm Hg) 73 08/23/2015 [facility] Respitory Rate 20 08/21/2015 [facility] Heart Rate 80 08/21/2015 [facility] Height 170.18 cm 08/21/2015 [facility] BMI Calculated 36.88 08/21/2015 [facility] Weight 106.818 08/21/2015 [facility] Systolic (mm Hg) 140 08/21/2015 [facility] Diastolic (mm Hg) 93 08/21/2015 [facility] Heart Rate 83 08/18/2015 [facility] Systolic (mm Hg) 165 08/18/2015 [facility] Diastolic (mm Hg) 93 08/18/2015 [facility] BMI Calculated 36.88 08/14/2015 [facility] Weight 106.818 08/14/2015 [facility] Height 170.18 cm 08/14/2015 [facility] Heart Rate 89 08/14/2015 [facility] Respitory Rate 20 08/14/2015 [facility] Systolic (mm Hg) 172 08/14/2015 [facility] Diastolic (mm Hg) 135 08/14/2015 [facility] BMI Calculated 36.88 08/11/2015 [facility] Weight 106.818 08/11/2015 [facility] Heart Rate 74 08/11/2015 [facility] Temperature Oral (F) 98.2 F 08/11/2015 [facility] Height 170.18 cm 08/11/2015 [facility] Systolic (mm Hg) 129 08/11/2015 [facility] Diastolic (mm Hg) 73 08/11/2015 [facility] Systolic (mm Hg) 134 07/26/2015 [facility] Diastolic (mm Hg) 82 07/26/2015 [facility] Heart Rate 90 07/26/2015 [facility] Systolic (mm Hg) 142 07/19/2015 [facility] Diastolic (mm Hg) 86 07/19/2015 [facility] Heart Rate 87 07/19/2015 [facility] Systolic (mm Hg) 132 07/12/2015 [facility] Diastolic (mm Hg) 83 07/12/2015 [facility] Heart Rate 99 07/12/2015 [facility] Systolic (mm Hg) 131 06/28/2015 [facility] Diastolic (mm Hg) 88 06/28/2015 [facility] Heart Rate 83 06/28/2015 [facility] Systolic (mm Hg) 129 06/23/2015 [facility] Diastolic (mm Hg) 74 06/23/2015 [facility] Heart Rate 95 06/23/2015 [facility] Heart Rate 98 06/21/2015 [facility] Systolic (mm Hg) 155 06/21/2015 [facility] Diastolic (mm Hg) 95 06/21/2015 [facility] Systolic (mm Hg) 139 05/13/2015 [facility] Diastolic (mm Hg) 97 05/13/2015 [facility] Heart Rate 92 05/13/2015 [facility] Systolic (mm Hg) 150 05/12/2015 [facility] Diastolic (mm Hg) 98 05/12/2015 [facility] Heart Rate 89 05/12/2015 [facility] Systolic (mm Hg) 142 05/10/2015 [facility] Diastolic (mm Hg) 99 05/10/2015 [facility] Heart Rate 98 05/10/2015 [facility] Systolic (mm Hg) 147 03/18/2015 [facility] Diastolic (mm Hg) 103 03/18/2015 [facility] Heart Rate 92 03/18/2015 [facility] Respitory Rate 18 02/16/2015 [facility] Heart Rate 86 02/16/2015 [facility] Systolic (mm Hg) 150 02/16/2015 [facility] Diastolic (mm Hg) 107 02/16/2015 [facility] Respitory Rate 18 01/25/2015 [facility] Heart Rate 65 01/25/2015 [facility] Diastolic (mm Hg) 80 01/25/2015 [facility] Systolic (mm Hg) 138 01/25/2015 [facility] Systolic (mm Hg) 133 01/25/2015 [facility] Respitory Rate 20 01/25/2015 [facility] Diastolic (mm Hg) 86 01/25/2015 [facility] Heart Rate 71 01/25/2015 [facility] Respitory Rate 18 01/24/2015 [facility] Heart Rate 82 01/24/2015 [facility] Diastolic (mm Hg) 83 01/24/2015 [facility] Systolic (mm Hg) 148 01/24/2015 [facility] Height 170.18 cm 01/17/2015 [facility] Temperature Oral (F) 98.4 F 01/07/2015 [facility] Temperature Oral (F) 97.8 F 01/07/2015 [facility] Temperature Oral (F) 98.8 F 01/03/2015 [facility] Height 170.18 cm 12/28/2014 [facility] Weight 109.273 12/28/2014 [facility] BMI Calculated 37.73 12/28/2014 [facility] Height 170.18 cm 12/28/2014 [facility] Height 170.18 cm 12/15/2014 [facility] BMI Calculated 36.88 12/15/2014 [facility] Weight 106.818 12/15/2014 [facility] Temperature Oral (F) 98.4 F 12/15/2014 [facility] Heart Rate 97 12/15/2014 [facility] Respitory Rate 20 12/15/2014 [facility] Systolic (mm Hg) 140 12/15/2014 [facility] Diastolic (mm Hg) 94 12/15/2014 [facility] BMI Calculated 36.88 12/07/2014 [facility] Height 170.18 cm 12/07/2014 [facility] Weight 106.818 12/07/2014 [facility] Temperature Oral (F) 97.9 F 12/07/2014 [facility] Heart Rate 95 12/07/2014 [facility] Systolic (mm Hg) 103 12/07/2014 [facility] Diastolic (mm Hg) 55 12/07/2014 [facility] Diastolic (mm Hg) 71 11/16/2014 [facility] Systolic (mm Hg) 121 11/16/2014 [facility] Respitory Rate 18 11/16/2014 [facility] Heart Rate 79 11/16/2014 [facility] Diastolic (mm Hg) 90 11/16/2014 [facility] Heart Rate 97 11/16/2014 [facility] Respitory Rate 18 11/16/2014 [facility] Systolic (mm Hg) 137 11/16/2014 [facility] Systolic (mm Hg) 119 11/16/2014 [facility] Diastolic (mm Hg) 57 11/16/2014 [facility] Heart Rate 95 11/16/2014 [facility] Respitory Rate 18 11/15/2014 [facility] Temperature Oral (F) 97.4 F 11/15/2014 [facility] Temperature Oral (F) 98.5 F 11/15/2014 [facility] Temperature Oral (F) 98.5 F 11/14/2014 [facility] Height 170.18 cm 11/10/2014 [facility] Height 170.18 cm 11/10/2014 [facility] Height 170.18 cm 11/10/2014 [facility] Weight 106.909 10/18/2014 [facility] BMI Calculated 36.91 10/18/2014 [facility] Encounters Location Location Details Encounter Type Encounter Number Reason For Visit Attending Provider ADM Date [id number] Argyrios Stampas 10/18/2014 11/16/2014 [facility] [id number] Kulwinder Carpenter 12/07/2014 12/08/2014 [facility] Outpatient [id number] Argyrios Stampas 12/15/2014 12/16/2014 [facility] [id number] Argyrios Stampas 12/28/2014 01/25/[address] [facility] Outpatient [id number] Argyrios Stampas 02/16/2015 02/17/2015 [facility] [id number] Argyrios Stampas 03/18/2015 04/17/2015 [facility] [id number] Argyrios Stampas 04/19/2015 04/27/2015 [facility] [id number] Argyrios Stampas 04/27/2015 05/27/2015 [facility] [place] [facility] Therapy [id number] Argyrios Stampas 05/29/2015 06/28/2015 [facility] [id number] Argyrios Stampas 06/30/2015 07/30/[address] [facility] Therapy [id number] Argyrios Stampas 08/02/2015 09/01/[address] Outpatient [id number] Dallas Gomez 08/11/2015 08/12/2015 [facility] Outpatient [id number] Dallas Gomez 08/14/2015 08/15/2015 [facility] Outpatient [id number] Demi Reyna 08/21/2015 08/22/[address] [facility] Therapy [id number] Argyrios Stampas 09/01/2015 10/01/2015 [facility] Outpatient [id number] Demi Reyna 09/11/2015 09/12/2015 [facility] Outpatient [id number] Argyrios Stampas 09/12/2015 09/13/[address] [facility] Tots Therapy [id number] Argyrios Stampas 10/02/2015 11/01/2015 [facility] Outpatient [id number] Argyrios Stampas 10/12/2015 10/13/[address] [facility] T[facility] Therapy [id number] Argyrios Stampas 11/01/2015 12/01/2015 [facility] [id number] Brendon Rios 11/14/2015 11/14/[address] [facility] [place] [facility] Therapy [id number] Argyrios Stampas 12/01/2015 12/31/2015 [facility] Outpatient [id number] Demi Reyna 12/11/2015 12/12/[address] [facility] Therapy [id number] Argyrios Stampas 01/03/2016 02/02/2016 [facility] [place] [facility] [id number] Demi Reyna 01/06/2016 01/07/2016 [facility] [place] [facility] Outpatient [id number] Demi Reyna 01/24/2016 01/25/2016 [facility] [place] [facility] Therapy [id number] Argyrios Stampas 02/02/2016 03/03/2016 [facility] [id number] Argyrios Stampas 03/04/2016 04/03/2016 [facility] Outpatient [id number] Cornelius Olivaett 03/27/2016 03/28/2016 [facility] [id number] Argyrios Stampas 04/03/2016 05/03/2016 [facility] Outpatient [id number] Argyrios Stampas 04/11/2016 04/12/2016 [facility] [id number] Argyrios Stampas 05/06/2016 06/05/2016 [facility] Outpatient [id number] Argyrios Stampas 09/12/2016 09/13/2016 [facility] [id number] Agustín Utturkar 10/11/2016 11/10/2016 [facility] [id number] Argyrios Stampas 11/11/2016 12/11/2016 [facility] [id number] Argyrios Stampas 12/25/2016 01/24/2017 [facility] [id number] Argyrios Stampas 01/27/2017 02/26/2017 [facility] [id number] Argyrios Stampas 02/25/2017 03/27/2017 [facility] Outpatient [id number] Argyrios Stampas 03/04/2017 03/05/2017 [facility] [id number] Argyrios Stampas 04/01/2017 05/01/2017 [facility] Rec[facility] [id number] Argyrios [place] 04/02/2017 05/02/2017 [facility] [id number] Argyrios [place] 05/05/2017 06/04/[address] [facility] Recurring [id number] Argyrios [place] 07/17/2017 08/16/2017 [facility] Outpatient [id number] Argyrios [place] 09/16/2017 09/17/2017 [facility] [id number] Argyrios [place] 10/13/2017 11/12/[address] [facility] Tots Therapy [id number] Argyrios [place] 11/12/2017 12/12/2017 [facility] [id number] Argyrios [place] 12/15/2017 01/14/2018 [facility] Procedures Procedure Code Date Perfomer Comments Source [facility] - Cystometrogram [id number] 08/11/2015 [facility] - Cystometrogram [id number] 08/11/2015 [facility] [place] [facility]G - Cystometrogram [id number] 08/11/2015 [facility] Video urodynamic study [id number] 12/07/2014 [facility] Video urodynamic study [id number] 12/07/2014 [facility] [place] Video urodynamic study [id number] 12/07/2014 [facility] section [id number] [facility] IVC - Insertion of inferior vena caval filter<sup>1</sup> [id number] 09/16/2014 [facility] Removal of spinal extradural tumor [id number] [facility] section [id number] [facility] [place] IVC - Insertion of inferior vena caval filter<sup>1</sup> [id number] 09/16/2014 [facility] [place] Removal of spinal extradural tumor [id number] [facility] [place] section [id number] [facility] IVC - Insertion of inferior vena caval filter<sup>1</sup> [id number] 09/16/2014 [place] Removal of spinal extradural tumor [id number] [facility]
--- OUTSIDE RECORDS SUMMARY | 2018-07-03 11:02 | XMS REPORT | Summary of Care ---
Author Organization Unknown Address Unknown Phone Unavailable Encounter HQ Kiesha(MELISSA) [phone] Date(s): 12/15/14 - 12/15/[id number] [place] [address] Discharge Disposition: Home Physician Attending: Mary Mayo MD Physician_Referring: Mary Mayo MD Vital Signs Most recent to 1 oldest [Reference Range]: Height 170.18 cm (12/15/14 9:40 AM) Temperature Oral 98.4 DegF [96.4-99.1 DegF] (12/15/14 9:40 AM) Blood Pressure 140/94 mmHg [90-140/60-90 mmHg] (12/15/14 9:40 AM) Respiratory Rate 20 BRMIN [14-20 BRMIN] (12/15/14 9:40 AM) Peripheral Pulse 97 bpm Rate [60-100 bpm] (12/15/14 9:40 AM) Weight 106.818 kg (12/15/14 9:40 AM) Body Mass Index 36.88 m2 (12/15/14 9:40 AM) Problem List Condition Effective Dates Status Health Status Informant 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) Hypertension(Confirm Active ed) Vancomycin resistant Active enterococcus(Confirm ed) Neurogenic Active bladder(Confirmed) Neurogenic Active bladder(Confirmed) 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
--- OUTSIDE RECORDS SUMMARY | 2018-07-03 11:02 | XMS REPORT | Summary of Care ---
Author Organization Unknown Address Unknown Phone Unavailable Encounter HQ Kiesha(MELISSA) [id number] Date(s): 12/28/14 - 01/25/[id number] [place] [address] Final: Discharge Disposition: Home Physician Attending: Mary Mayo MD Physician Admitting: Mary Mayo MD Vital Signs 1 2 3 Most recent to oldest [Reference Range]: 170.18 cm (01/17/15 1:41 PM) 170.18 cm (12/28/14 6:35 PM) 170.18 cm (12/28/14 6:08 PM) Height 106.545 kg (01/20/15 6:55 PM) 106.364 kg (01/17/15 1:41 PM) 106.364 kg (01/13/15 5:01 PM) Current Weight 98.4 DegF (01/07/15 4:10 PM) 97.8 DegF (01/07/15 7:10 AM) 98.8 DegF (01/03/15 12:54 AM) Temperature Oral [96.4-99.1 DegF] 138 mmHg (01/25/15 7:45 AM) 133 mmHg (01/25/15 12:00 AM) 148 mmHg *HI* (01/24/15 4:15 PM) Systolic Blood Pressure [90-140 mmHg] 80 mmHg (01/25/15 7:45 AM) 86 mmHg (01/25/15 12:00 AM) 83 mmHg (01/24/15 4:15 PM) Diastolic Blood Pressure [60-90 mmHg] 18 BRMIN (01/25/15 7:45 AM) 20 BRMIN (01/25/15 12:00 AM) 18 BRMIN (01/24/15 4:15 PM) Respiratory Rate [14-20 BRMIN] 65 bpm (01/25/15 7:45 AM) 71 bpm (01/25/15 12:00 AM) 82 bpm (01/24/15 4:15 PM) Peripheral Pulse Rate [60-100 bpm] 109.273 kg (12/28/14 6:08 PM) Weight 37.73 m2 (12/28/14 6:08 PM) Body Mass Index Problem List Condition Effective Dates Status Health Status Informant 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) Hypertension(Confirm Active ed) Vancomycin resistant Active enterococcus(Confirm ed) Neurogenic Active bladder(Confirmed) Neurogenic Active bladder(Confirmed) Neurogenic Active bowel(Confirmed) Paraparesis(Confirme Active d) Spasticity(Confirmed Active ) Urinary tract Active infection(Confirmed) Allergies, Adverse Reactions, Alerts Substance Reaction Severity Status NKDA Active NKFA Active Medications acetaminophen 325 mg oral tablet 325 mg, 1 tab, Route: PO, Drug form: TAB, Q6H, Dosing Weight 106.818, kg, PRN Fo r Temp > 100.4 F, Start date: 12/28/14 16:49:00, Stop date: 02/27/15 16:48:00 Notes: Do not exceed 4 gm/day. (Same as: Tylenol) Start Date: 12/28/14 Stop Date: 01/25/15 Status: Discontinued acetaminophen 325 mg oral tablet 325 mg=1 tab, PO, Q6H, PRN For Temp > 100.4 F, 0 Refill(s) Start Date: 01/24/15 Status: Ordered amitriptyline 75 mg, 3 tab, Route: PO, Drug form: TAB, Bedtime, Dosing Weight 109.273, kg, Sta rt date: 01/16/15 21:00:00, Duration: 60 day, Stop date: 03/16/15 21:00:00 Notes: (Same as: Elavil) Start Date: 01/16/15 Stop Date: 01/22/15 Status: Discontinued amitriptyline 100 mg, 1 tab, Route: PO, Drug form: TAB, Bedtime, Dosing Weight 109.273, kg, St art date: 01/22/15 21:00:00, Duration: 60 day, Stop date: 03/22/15 21:00:00 Notes: (Same as: Elavil) Start Date: 01/22/15 Stop Date: 01/25/15 Status: Discontinued amitriptyline 50 mg, 1 tab, Route: PO, Drug form: TAB, Bedtime, Dosing Weight 106.818, kg, Sta rt date: 12/28/14 21:00:00, Stop date: 02/26/15 21:00:00 Notes: (Same as: Beatrice) Start Date: 12/28/14 Stop Date: 01/16/15 Status: Discontinued amitriptyline 100 mg oral tablet 100 mg=1 tab, PO, Bedtime, # 30 tab, 0 Refill(s) Start Date: 01/24/15 Status: Ordered Anusol-HC 25 mg rectal suppository 25 mg, 1 supp, Route: NV, BID, Drug form: SUPP, Start date: 01/22/15 21:00:00, D uration: 60 day, Stop date: 03/23/15 8:30:00 Notes: (Same as: Anusol-HC, Hemorrhoidal HC) Start Date: 01/22/15 Stop Date: 01/25/15 Status: Discontinued Anusol-HC 25 mg rectal suppository 25 mg=1 supp, NV, BID, # 60 supp, 0 Refill(s) Start Date: 01/24/15 Status: Ordered ascorbic acid 500 mg oral tablet 500 mg=1 tab, CHEW, BID, # 60 tab, 0 Refill(s) Start Date: 01/24/15 Status: Ordered baclofen 10 mg, 1 tab, Route: PO, Drug form: TAB, TID, Dosing Weight 106.818, kg, Start d ate: 12/28/14 21:00:00, Stop date: 02/27/15 13:00:00 Notes: (Same As: Daly) Start Date: 12/28/14 Stop Date: 01/09/15 Status: Discontinued baclofen 10 mg, 1 tab, Route: PO, Drug form: TAB, Q8H-06, Dosing Weight 106.818, kg, Star t date: 01/09/15 22:00:00, Duration: 60 day, Stop date: 03/10/15 14:00:00 Notes: (Same As: Daly) Start Date: 01/09/15 Stop Date: 01/25/15 Status: Discontinued baclofen 10 mg oral tablet 10 mg=1 tab, PO, Q8H-06, # 90 tab, 0 Refill(s) Start Date: 01/24/15 Status: Ordered bisacodyl 10 mg, Route: NV, Drug form: SUPP, QAM, Dosing Weight 106.818, kg, Start date: 0 12/29/14 6:30:00, Duration: 30 day, Stop date: 01/27/15 6:30:00 Start Date: 12/29/14 Stop Date: 12/28/14 Status: Canceled bisacodyl 10 mg, 1 supp, Route: PO, Drug form: SUPP, Bedtime, Dosing Weight 106.818, kg, S tart date: 12/28/14 21:00:00, Stop date: 02/26/15 21:00:00 Notes: (Same As: Dulcolax, Bisco-Lax) Start Date: 12/28/14 Stop Date: 01/03/15 Status: Discontinued carvedilol 6.25 mg, 1 tab, Route: PO, Drug form: TAB, Q12H, Dosing Weight 106.818, kg, Star t date: 12/28/14 21:00:00, Stop date: 02/27/15 9:00:00 Notes: Give with food. (Same As: Coreg) Start Date: 12/28/14 Stop Date: 01/04/15 Status: Discontinued carvedilol 6.25 mg oral tablet 12.5 mg=2 tab, PO, Q12H, # 60 tab, 0 Refill(s) Start Date: 01/24/15 Status: Ordered cascara sagrada 450 mg, 1 cap, Route: PO, Drug Form: CAP, Dosing Weight 106.818, kg, ONCE, Start date: 12/28/14 17:18:00, Stop date: 12/28/14 17:18:00 Notes: Non-Formulary Item Start Date: 12/28/14 Stop Date: 12/28/14 Status: Completed Coreg 12.5 mg, 2 tab, Route: PO, Drug form: TAB, Q12H, Dosing Weight 109.273, kg, Star t date: 01/04/15 21:00:00, Duration: 60 day, Stop date: 03/05/15 9:00:00 Notes: Give with food. (Same As: Coreg) Start Date: 01/04/15 Stop Date: 01/25/15 Status: Discontinued Coumadin 8 mg, 4 tab, Route: PO, Drug form: TAB, Q5PM, Start date: 01/07/15 17:00:00, Dur ation: 30 day, Stop date: 02/05/15 17:00:00 Notes: Nurse to ensure documentation of patient education per anticoagulation po licy.Avoid large intake of vitamin-K containing foods diet.(Same As: Coumadin) Start Date: 01/07/15 Stop Date: 01/09/15 Status: Discontinued Coumadin 5 mg, 1 tab, Route: PO, Drug form: TAB, Q5PM, Dosing Weight 106.818, kg, Start d ate: 12/29/14 17:00:00, Stop date: 02/27/15 17:00:00 Notes: Nurse to ensure documentation of patient education per anticoagulation po licy.Avoid large intake of vitamin-K containing foods diet.(Same As: Coumadin) Start Date: 12/29/14 Stop Date: 01/04/15 Status: Discontinued diphenhydrAMINE 25 mg oral tablet, disintegrating 25 mg, 1 tab, Route: PO, Drug form: TAB, TID, Dosing Weight 106.818, kg, PRN All ergies, Start date: 12/28/14 16:49:00, Stop date: 02/27/15 16:48:00 Start Date: 12/28/14 Stop Date: 01/25/15 Status: Discontinued diphenhydrAMINE 25 mg oral tablet, disintegrating 25 mg=1 tab, PO, TID, PRN Allergies, 0 Refill(s) Start Date: 01/24/15 Status: Ordered Enemeez Mini 283 mg rectal enema 283 mg, 5 mL, Route: NV, Drug form: HERNAN, Bedtime, Dosing Weight 109.273, kg, NV N Constipation, Start date: 12/31/14 8:16:00, Duration: 30 day, Stop date: 01/30 8:15:00 Notes: Same as Enemeez Non formulary item Start Date: 12/31/14 Stop Date: 01/25/15 Status: Discontinued Enemeez Mini 283 mg rectal enema 283 mg=1 ea, NV, Bedtime, PRN Constipation, # 30 ea, 0 Refill(s) Start Date: 01/24/15 Status: Ordered Enemeez Mini 283 mg rectal enema 283 mg, 5 mL, Route: NV, Drug form: HERNAN, Bedtime, Dosing Weight 109.273, kg, St art date: 01/03/15 21:00:00, Duration: 30 day, Stop date: 02/01/15 21:00:00 Notes: Same as Enemeez Non formulary item Start Date: 01/03/15 Stop Date: 01/25/15 Status: Discontinued ferrous sulfate 325 mg, 1 tab, Route: PO, Drug form: TAB, BID-Meals, Dosing Weight 106.818, kg, Start date: 12/29/14 8:00:00, Stop date: 02/26/15 8:00:00 Notes: Give with food.iron elemental [id number] as ferrous sulfateDose=___mg taniya mental iron Start Date: 12/29/14 Stop Date: 01/25/15 Status: Discontinued gabapentin 300 mg oral capsule 1,200 mg, 4 cap, Route: PO, Drug form: CAP, Q8H-06, Dosing Weight 106.818, kg, S tart date: 01/09/15 22:00:00, Duration: 60 day, Stop date: 03/10/15 14:00:00 Notes: (Same as: Neurontin) Start Date: 01/09/15 Stop Date: 01/25/15 Status: Discontinued gabapentin 300 mg oral capsule 900 mg, 3 cap, Route: PO, Drug form: CAP, QID, Dosing Weight 106.818, kg, Start date: 12/28/14 17:00:00, Stop date: 02/27/15 13:00:00 Notes: (Same as: Neurontin) Start Date: 12/28/14 Stop Date: 01/09/15 Status: Discontinued gabapentin 400 mg oral capsule 1,200 mg=3 cap, PO, TID, # 270 cap, 0 Refill(s) Start Date: 01/24/15 Status: Ordered iron sulfate (ferrous sulfate) 325 mg oral tablet 325 mg=1 tab, PO, BID-Meals, # 30 tab, 0 Refill(s) Start Date: 01/24/15 Status: Ordered lactobacillus acidophilus 1 tab, Route: PO, Drug Form: CHEWTAB, Dosing Weight 109.273, kg, BID, Start date : 01/11/15 8:30:00, Duration: 30 day, Stop date: 02/09/15 21:00:00 Notes: High Potency Chewable lactobabacillus acidophilus 1 billion bacteria/tabl et Start Date: 01/11/15 Stop Date: 01/16/15 Status: Discontinued levofloxacin 500 mg, 1 tab, Route: PO, Drug form: TAB, [id number], Dosing Weight 109.273, kg, St art date: 01/11/15 8:00:00, Duration: 5 day, Stop date: 01/15/15 8:00:00 Start Date: 01/11/15 Stop Date: 01/15/15 Status: Completed Linaclotide Linaclotide, 145mcg, Route: PO, Daily, 12/29/14 8:30:00, Duration: 30 day, Stop date: 01/27/15 8:30:00 Start Date: 12/29/14 Stop Date: 12/29/14 Status: Deleted Linzess (Linaclotide) 145 mcg Capslue Linzess (Linaclotide) 145 mcg Capslue, 1 cap, Drug form: MISC, Route: PO, Daily, 12/30/14 8:30:00, Duration: 60 day, Stop date: 02/27/15 8:30:00 Start Date: 12/30/14 Stop Date: 01/09/15 Status: Discontinued losartan 50 mg, 2 tab, Route: PO, Drug form: TAB, Daily, Dosing Weight 106.818, kg, Start date: 12/29/14 8:30:00, Stop date: 02/27/15 8:30:00 Notes: (Same as: Cozaar) Start Date: 12/29/14 Stop Date: 01/04/15 Status: Discontinued Lovenox 100 mg, 1 mL, Route: SUB-Q, Drug form: INJ, [id number], Dosing Weight 109.273, kg, Start date: 01/03/15 21:00:00, Duration: 30 day, Stop date: 02/02/15 9:00:00 Notes: Nurse to ensure documentation of patient education per anticoagulation po licy.(Same as: Lovenox) Start Date: 01/03/15 Stop Date: 01/06/15 Status: Discontinued magnesium hydroxide 8% oral suspension 2.4 gm=30 mL, PO, Daily, PRN as needed for constipation, # 360 mL, 0 Refill(s) Start Date: 01/24/15 Status: Ordered melatonin 6 mg, 2 tab, Route: PO, Drug form: TAB, Bedtime, Dosing Weight 106.818, kg, Star t date: 12/29/14 21:00:00, Stop date: 02/26/15 21:00:00 Notes: (Same as: Melatonin) Start Date: 12/29/14 Stop Date: 01/25/15 Status: Discontinued melatonin 3 mg, 1 tab, Route: PO, Drug form: TAB, Bedtime, Dosing Weight 106.818, kg, Star t date: 12/28/14 21:00:00, Stop date: 02/26/15 21:00:00 Notes: (Same as: Melatonin) Start Date: 12/28/14 Stop Date: 12/29/14 Status: Discontinued melatonin 3 mg oral tablet 3 mg, 1 tab, Route: PO, Drug Form: TAB, Dosing Weight 109.273, kg, Bedtime, PRN as needed for insomnia, Start date: 12/29/14 12:44:00, Duration: 60 day, Stop da te: 02/27/15 12:43:00 Notes: (Same as: Melatonin) Start Date: 12/29/14 Stop Date: 01/25/15 Status: Discontinued melatonin 3 mg oral tablet 6 mg=2 tab, PO, Bedtime, # 60 tab, 0 Refill(s) Start Date: 01/24/15 Status: Ordered Milk of Magnesia 60 ml, Route: PO, Drug Form: SUSP, Dosing Weight 106.818, kg, ONCE, Start date: 12/28/14 17:18:00, Stop date: 12/28/14 17:18:00 Notes: (Same as: Milk of Magnesia, MOM) Start Date: 12/28/14 Stop Date: 12/28/14 Status: Completed Milk of Magnesia 30 mL, Route: PO, Drug Form: SUSP, Dosing Weight 109.273, kg, Daily, PRN as need ed for constipation, Start date: 12/30/14 9:42:00, Duration: 30 day, Stop date: 01/29/15 9:41:00 Notes: (Same as: Milk of Magnsimon, MOM) Start Date: 12/30/14 Stop Date: 01/25/15 Status: Discontinued Naprosyn 500 mg, 1 tab, Route: PO, Drug form: TAB, ONCE, Dosing Weight 109.273, kg, Prior ity: NOW, Start date: 01/24/15 13:59:00, Stop date: 01/24/15 13:59:00 Notes: (Same as: Naprosyn) Take with food. Start Date: 01/24/15 Stop Date: 01/24/15 Status: Completed Naprosyn 500 mg, 1 tab, Route: PO, Drug form: TAB, BID, Dosing Weight 109.273, kg, Start date: 01/24/15 21:00:00, Duration: 30 day, Stop date: 02/23/15 8:30:00 Notes: (Same as: Naprosyn) Take with food. Start Date: 01/24/15 Stop Date: 01/25/15 Status: Discontinued Omnipaque 300 100 mL, Route: Intravesical, Drug Form: SOLN, Dosing Weight 109.273, kg, ONCE, S tart date: 01/18/15 8:32:00, Stop date: 01/18/15 8:32:00 Notes: (Same as:Omnipaque 300). Start Date: 01/18/15 Stop Date: 01/18/15 Status: Completed oxyCODONE 5 mg immediate release 5 mg, 1 tab, Route: PO, Drug form: TAB, Q4H, Dosing Weight 106.818, kg, PRN Pain Score 4-6, Start date: 12/28/14 16:50:00, Stop date: 02/27/15 16:49:00 Notes: (Same as: Roxicodone) Start Date: 12/28/14 Stop Date: 01/25/15 Status: Discontinued oxyCODONE 5 mg oral tablet 5 mg=1 tab, PO, Q4H, PRN Pain Score 4-6, 0 Refill(s) Start Date: 01/24/15 Status: Ordered oxyCONTIN 10 mg, 1 tab, Route: PO, Drug form: ERTAB, Q12H, Dosing Weight 106.818, kg, Star t date: 01/03/15 21:00:00, Stop date: 02/02/15 9:00:00 Notes: Do not crush or chew.(Same as: OxyContin) Start Date: 01/03/15 Stop Date: 01/05/15 Status: Discontinued oxyCONTIN 10 mg, 1 tab, Route: PO, Drug form: ERTAB, Bedtime, Dosing Weight 106.818, kg, S tart date: 01/05/15 21:00:00, Stop date: 02/03/15 21:00:00 Notes: Do not crush or chew.(Same as: OxyContin) Start Date: 01/05/15 Stop Date: 01/11/15 Status: Discontinued oxyCONTIN 10 mg, 1 tab, Route: PO, Drug form: ERTAB, Q8H, Dosing Weight 106.818, kg, Start date: 12/29/14 0:00:00, Stop date: 02/27/15 16:00:00 Notes: Do not crush or chew.(Same as: OxyContin) Start Date: 12/29/14 Stop Date: 01/03/15 Status: Discontinued polyethylene glycol 3350 17 gm, Route: PO, Drug form: PDR/REC, Bedtime, Dosing Weight 106.818, kg, Start date: 12/28/14 21:00:00, Duration: 30 day, Stop date: 01/26/15 21:00:00 Start Date: 12/28/14 Stop Date: 12/28/14 Status: Canceled pregabalin 150 mg, 2 cap, Route: PO, Drug form: CAP, TID, Dosing Weight 106.818, kg, Start date: 12/28/14 21:00:00, Stop date: 02/27/15 0:00:00 Notes: (Same as: Lyrica) Start Date: 12/28/14 Stop Date: 01/09/15 Status: Discontinued pregabalin 150 mg, 2 cap, Route: PO, Drug form: CAP, Q8H-06, Dosing Weight 106.818, kg, Sta rt date: 01/09/15 22:00:00, Stop date: 02/08/15 14:00:00 Notes: (Same as: Lyrica) Start Date: 01/09/15 Stop Date: 01/25/15 Status: Discontinued pregabalin 75 mg oral capsule 150 mg=2 cap, PO, Q8H-06, # 180 cap, 0 Refill(s) Start Date: 01/24/15 Status: Ordered Multivitamins with Folic Acid 0.4 mg oral tablet 0.4 mg=1 tab, PO, Daily, # 30 tab, 0 Refill(s) Start Date: 01/24/15 Status: Ordered Multivitamins with Folic Acid 0.4 mg oral tablet 1 tab, Route: PO, Drug Form: TAB, Dosing Weight 109.273, kg, Daily, Start date: 01/06/15 8:30:00, Duration: 30 day, Stop date: 02/04/15 8:30:00 Start Date: 01/06/15 Stop Date: 01/25/15 Status: Discontinued Saline Flush 0.9% 10 mL, Route: IVP, Drug Form: INJ, Dosing Weight 106.818, kg, PRN, PRN Line Flus h, Start date: 12/28/14 17:18:00, Stop date: 02/27/15 17:17:00 Notes: (Same as: BD Posiflush) Start Date: 12/28/14 Stop Date: 01/25/15 Status: Discontinued senna 8.6 mg oral tablet 17.2 mg, 2 tab, Route: PO, Drug Form: TAB, Dosing Weight 106.818, kg, Bedtime, S tart date: 12/28/14 21:00:00, Stop date: 02/26/15 21:00:00 Notes: (Same as: Senokot) Start Date: 12/28/14 Stop Date: 12/30/14 Status: Discontinued senna 8.6 mg oral tablet 25.8 mg, 3 tab, Route: PO, Drug Form: TAB, Dosing Weight 106.818, kg, QNoon, Sta rt date: 01/10/15 12:00:00, Duration: 60 day, Stop date: 03/10/15 12:00:00 Notes: (Same as: Senokot) Start Date: 01/10/15 Stop Date: 01/25/15 Status: Discontinued senna 8.6 mg oral tablet 17.2 mg, 2 tab, Route: PO, Drug Form: TAB, Dosing Weight 106.818, kg, QNoon, Sta rt date: 12/30/14 12:00:00, Stop date: 01/28/15 12:00:00 Notes: (Same as: Senokot) Start Date: 12/30/14 Stop Date: 01/09/15 Status: Discontinued senna 8.6 mg oral tablet 25.8 mg=3 tab, PO, QNoon, # 90 tab, 0 Refill(s) Start Date: 01/24/15 Status: Ordered SMOG Enema 900 ml, Route: NV, Drug Form: HERNAN, Dosing Weight 106.818, kg, ONCE, Start date: 12/28/14 17:18:00, Stop date: 12/28/14 17:18:00, tonight Special Instructions: tonight Notes: Non formulary item Start Date: 12/28/14 Stop Date: 12/28/14 Status: Completed tramadol 50 mg oral tablet 100 mg=2 tab, PO, Q6H, PRN Pain Score 1-3, # 60 tab, 0 Refill(s) Start Date: 01/24/15 Status: Ordered tramadol 50 mg oral tablet 100 mg, 2 tab, Route: PO, Drug form: TAB, Q6H, Dosing Weight 106.818, kg, PRN Pa in Score 1-3, Start date: 12/28/14 16:51:00, Stop date: 02/27/15 16:50:00 Notes: Not to exceed 400mg/day. (Same As: Ultram) Start Date: 12/28/14 Stop Date: 01/25/15 Status: Discontinued Vitamin C 500 mg, 1 tab, Route: CHEW, Drug form: TAB, BID, Dosing Weight 109.273, kg, Star t date: 12/30/14 21:00:00, Duration: 30 day, Stop date: 02/28/15 8:30:00 Notes: (Same as: Vitamin C) Start Date: 12/30/14 Stop Date: 01/25/15 Status: Discontinued warfarin 4 mg, 2 tab, Route: PO, Drug form: TAB, Q5PM, Dosing Weight 109.273, kg, Start d ate: 01/09/15 17:00:00, Duration: 30 day, Stop date: 02/07/15 17:00:00 Notes: Nurse to ensure documentation of patient education per anticoagulation po licy.Avoid large intake of vitamin-K containing foods diet.(Same As: Coumadin) Start Date: 01/09/15 Stop Date: 01/11/15 Status: Discontinued warfarin 5 mg, 1 tab, Route: PO, Drug form: TAB, Q5PM, Dosing Weight 109.273, kg, Start d ate: 01/12/15 17:00:00, Duration: 30 day, Stop date: 02/10/15 17:00:00 Notes: Nurse to ensure documentation of patient education per anticoagulation po licy.Avoid large intake of vitamin-K containing foods diet.(Same As: Coumadin) Start Date: 01/12/15 Stop Date: 01/16/15 Status: Discontinued warfarin 3 mg, 1 tab, Route: PO, Drug form: TAB, Q5PM, Dosing Weight 109.273, kg, Start d ate: 01/09/15 17:00:00, Duration: 30 day, Stop date: 02/07/15 17:00:00 Notes: Nurse to ensure documentation of patient education per anticoagulation po licy.Avoid large intake of vitamin-K containing foods diet.(Same As: Coumadin) Start Date: 01/09/15 Stop Date: 01/11/15 Status: Discontinued warfarin 0.5 mg, Route: PO, Drug form: TAB, Q5PM, Dosing Weight 109.273, kg, Start date: 01/07/15 17:00:00, Duration: 30 day, Stop date: 02/05/15 17:00:00 Start Date: 01/07/15 Stop Date: 01/07/15 Status: Deleted warfarin 6 mg, 2 tab, Route: PO, Drug form: TAB, Q5PM, Dosing Weight 109.273, kg, Start d ate: 01/16/15 17:00:00, Duration: 30 day, Stop date: 02/14/15 17:00:00 Notes: Nurse to ensure documentation of patient education per anticoagulation po licy.Avoid large intake of vitamin-K containing foods diet.(Same As: Coumadin) Start Date: 01/16/15 Stop Date: 01/25/15 Status: Discontinued warfarin 2.5 mg, Route: PO, Drug form: TAB, Q5PM, Dosing Weight 106.818, kg, Start date: 12/28/14 17:00:00, Duration: 30 day, Stop date: 01/26/15 17:00:00 Start Date: 12/28/14 Stop Date: 12/28/14 Status: Discontinued warfarin 2.5 mg, 1 tab, Route: PO, Drug form: TAB, ONCE, Dosing Weight 109.273, kg, Start date: 01/03/15 19:08:00, Stop date: 01/03/15 19:08:00 Notes: Nurse to ensure documentation of patient education per anticoagulation po licy.Avoid large intake of vitamin-K containing foods diet.(Same As: Coumadin) Start Date: 01/03/15 Stop Date: 01/03/15 Status: Completed warfarin 7.5 mg, 1 tab, Route: PO, Drug form: TAB, Q5PM, Dosing Weight 109.273, kg, Start date: 01/04/15 17:00:00, Duration: 30 day, Stop date: 02/02/15 17:00:00 Notes: Nurse to ensure documentation of patient education per anticoagulation po licy.Avoid large intake of vitamin-K containing foods diet.(Same As: Coumadin) Start Date: 01/04/15 Stop Date: 01/07/15 Status: Voided With Results warfarin 3 mg oral tablet 6 mg=2 tab, PO, Q5PM, # 60 tab, 0 Refill(s) Start Date: 01/24/15 Status: Ordered Results ELECTROLYTES 1 2 3 Most recent to oldest [Reference Range]: 141 mEq/L (01/23/15 4:40 AM) 143 mEq/L (01/16/15 4:53 AM) 142 mEq/L (01/11/15 5:49 AM) Sodium Lvl [135-145 mEq/L] 3.7 mEq/L (01/23/15 4:40 AM) 3.5 mEq/L (01/16/15 4:53 AM) 3.5 mEq/L (01/11/15 5:49 AM) Potassium Lvl [3.5-5.1 mEq/L] 103 mEq/L (01/23/15 4:40 AM) 107 mEq/L (01/16/15 4:53 AM) 102 mEq/L (01/11/15 5:49 AM) Chloride Lvl [95-109 mEq/L] 29 mEq/L (01/23/15 4:40 AM) 28 mEq/L (01/16/15 4:53 AM) 28 mEq/L (01/11/15 5:49 AM) CO2 [24-32 mEq/L] 12.7 mEq/L (01/23/15 4:40 AM) 11.5 mEq/L (01/16/15 4:53 AM) 15.5 mEq/L (01/11/15 5:49 AM) AGAP [10.0-20.0 mEq/L] CHEM PANEL 1 2 3 Most recent to oldest [Reference Range]: 0.5 mg/dL (01/23/15 4:40 AM) 0.5 mg/dL (01/16/15 4:53 AM) 0.4 mg/dL *LOW* (01/11/15 5:49 AM) Creatinine Lvl [0.5-1.4 mg/dL] 128 mL/min/1.73m2 1 *NA* (01/23/15 4:40 AM) 129 mL/min/1.73m2 2 *NA* (01/16/15 4:53 AM) 139 mL/min/1.73m2 3 *NA* (01/11/15 5:49 AM) eGFR 8 mg/dL (01/23/15 4:40 AM) 9 mg/dL (01/16/15 4:53 AM) 9 mg/dL (01/11/15 5:49 AM) BUN [7-22 mg/dL] 22 (01/11/15 5:49 AM) 14 (12/29/14 5:06 AM) B/C Ratio [6-25] 86 mg/dL 4 (01/23/15 4:40 AM) 74 mg/dL 5 (01/16/15 4:53 AM) 72 mg/dL 6 (01/11/15 5:49 AM) Glucose Lvl [70-99 mg/dL] 7.3 g/dL (01/11/15 5:49 AM) 7.1 g/dL (12/29/14 5:06 AM) Total Protein [6.4-8.4 g/dL] 3.4 g/dL *LOW* (01/11/15 5:49 AM) 3.4 g/dL *LOW* (12/29/14 5:06 AM) Albumin Lvl [3.5-5.0 g/dL] 3.9 g/dL (01/11/15 5:49 AM) 3.7 g/dL (12/29/14 5:06 AM) Globulin [2.0-4.0 g/dL] 0.9 (01/11/15 5:49 AM) 0.9 (12/29/14 5:06 AM) A/G Ratio [0.7-1.6] 8.7 mg/dL (01/23/15 4:40 AM) 8.6 mg/dL (01/16/15 4:53 AM) 8.7 mg/dL (01/11/15 5:49 AM) Calcium Lvl [8.5-10.5 mg/dL] 4.7 mg/dL *HI* (12/29/14 5:06 AM) Phosphorus [2.5-4.5 mg/dL] 2.5 mg/dL *HI* (12/29/14 5:06 AM) Magnesium Lvl [1.8-2.4 mg/dL] 63 unit/L (01/11/15 5:49 AM) 48 unit/L (12/29/14 5:06 AM) ALT [0-65 unit/L] 38 unit/L *HI* (01/11/15 5:49 AM) 25 unit/L (12/29/14 5:06 AM) AST [0-37 unit/L] 102 unit/L (01/11/15 5:49 AM) 110 unit/L (12/29/14 5:06 AM) Alk Phos [39-136 unit/L] 0.3 mg/dL (01/11/15 5:49 AM) 0.2 mg/dL (12/29/14 5:06 AM) Bili Total [0.2-1.3 mg/dL] 1Result Comment: The eGFR is calculated using [...] from the [employer] ( [employer]) which additionally recommends that when the eGFR is used in patients with extremes of body mass index for purposes of drug dosing, the eGFR should be mul tiplied by the estimated BMI. 2Result Comment: The eGFR is calculated using [...] from the [employer] ( [employer]) which additionally recommends that when the eGFR is used in patients with extremes of body mass index for purposes of drug dosing, the eGFR should be mul tiplied by the estimated BMI. 3Result Comment: The eGFR is calculated using [...] from the [employer] ( [employer]) which additionally recommends that when the eGFR is used in patients with extremes of body mass index for purposes of drug dosing, the eGFR should be mul tiplied by the estimated BMI. 4Interpretive Data: Adult reference range values reflect the clinical guidelines of the [place] [employer]. 5Interpretive Data: Adult reference range values reflect the clinical guidelines of the [place] [employer]. 6Interpretive Data: Adult reference range values reflect the clinical guidelines of the [place] [employer]. LIPIDS 1 2 3 Most recent to oldest [Reference Range]: 5.00 (12/29/14 5:06 AM) CHD Risk [3.90-5.80] 155 mg/dL (12/29/14 5:06 AM) Chol [<=199 mg/dL] 234 mg/dL *HI* (12/29/14 5:06 AM) Trig [<=149 mg/dL] 31 mg/dL *LOW* (12/29/14 5:06 AM) HDL [>=61 mg/dL] 77 mg/dL (12/29/14 5:06 AM) LDL (Calculated) [<=99 mg/dL] 47 *NA* (12/29/14 5:06 AM) VLDL SPECIAL CHEMISTRY 1 2 3 Most recent to oldest [Reference Range]: 4.8 % (12/29/14 5:06 AM) Hgb A1C [<=5.6 %] ANEMIA STUDY 1 2 3 Most recent to oldest [Reference Range]: 52 ug/dl (12/29/14 5:06 AM) Iron [30-160 ug/dl] 50 ng/mL (12/29/14 5:06 AM) Ferritin Lvl [5-204 ng/mL] 16 % (12/29/14 5:06 AM) % Satur Fe [12-57 %] 282 ug/dl (12/29/14 5:06 AM) UIBC [110-370 ug/dl] 334 ug/dl (12/29/14 5:06 AM) TIBC [228-428 ug/dl] THYROID PANEL 1 2 3 Most recent to oldest [Reference Range]: 33 % (01/11/15 5:49 AM) 37 % (12/30/14 5:59 AM) T3 Uptake [31-39 %] 9.8 ug/dl (01/11/15 5:49 AM) 11.7 ug/dl (12/30/14 5:59 AM) T4 [4.7-13.3 ug/dl] 1.10 ng/dL (12/29/14 5:06 AM) T4 Free [0.76-1.46 ng/dL] 3.2 *NA* (01/11/15 5:49 AM) 4.3 *NA* (12/30/14 5:59 AM) FTI 4.420 uIU/mL *HI* (01/11/15 5:49 AM) 5.940 uIU/mL *HI* (12/30/14 5:59 AM) 10.600 uIU/mL *HI* (12/29/14 5:06 AM) TSH [0.360-3.740 uIU/mL] URINE AND STOOL 1 2 3 Most recent to oldest [Reference Range]: Slight Cloudy (12/29/14 5:06 AM) UA Turbidity [Clear] Yellow *NA* (12/29/14 5:06 AM) UA Color [Yellow] 7.0 (12/29/14 5:06 AM) UA pH [5.0-8.0] 1.015 (12/29/14 5:06 AM) UA Spec Grav [<=1.030] Negative (12/29/14 5:06 AM) UA Glucose [Negative] Small *ABN* (12/29/14 5:06 AM) UA Blood [Negative] Negative *NA* (12/29/14 5:06 AM) UA Ketones [Negative] Negative (12/29/14 5:06 AM) UA Protein [Negative] 0.2 EU/dL (12/29/14 5:06 AM) UA Urobilinogen [0.1-1.0 EU/dL] Negative *NA* (12/29/14 5:06 AM) UA Bili [Negative] Large *ABN* (12/29/14 5:06 AM) UA Leuk Est [Negative] Positive *ABN* (12/29/14 5:06 AM) UA Nitrite [Negative] 11-20 /HPF *ABN* (12/29/14 5:06 AM) UA WBC [None Seen /HPF] 3-5 /HPF *ABN* (12/29/14 5:06 AM) UA RBC [0-2 /HPF] Many /HPF (12/29/14 5:06 AM) UA Bacteria [None Seen /HPF] Rare /LPF (12/29/14 5:06 AM) UA Sq Epi [Few /LPF] HEMATOLOGY 1 2 3 Most recent to oldest [Reference Range]: 6.3 K/CMM (01/23/15 4:40 AM) 8.0 K/CMM (01/16/15 4:53 AM) 7.3 K/CMM (01/11/15 5:49 AM) WBC [3.7-10.4 K/CMM] 3.89 M/CMM *LOW* (01/23/15 4:40 AM) 3.84 M/CMM *LOW* (01/16/15 4:53 AM) 3.68 M/CMM *LOW* (01/11/15 5:49 AM) RBC [4.20-5.40 M/CMM] 11.5 g/dL *LOW* (01/23/15 4:40 AM) 11.4 g/dL *LOW* (01/16/15 4:53 AM) 10.7 g/dL *LOW* (01/11/15 5:49 AM) Hgb [12.0-16.0 g/dL] 34.4 % *LOW* (01/23/15 4:40 AM) 34.1 % *LOW* (01/16/15 4:53 AM) 32.5 % *LOW* (01/11/15 5:49 AM) Hct [36.0-48.0 %] 88.5 fL (01/23/15 4:40 AM) 88.9 fL (01/16/15 4:53 AM) 88.3 fL (01/11/15 5:49 AM) MCV [80.0-98.0 fL] 29.5 pg (01/23/15 4:40 AM) 29.6 pg (01/16/15 4:53 AM) 29.1 pg (01/11/15 5:49 AM) MCH [27.0-31.0 pg] 33.3 g/dL (01/23/15 4:40 AM) 33.4 g/dL (01/16/15 4:53 AM) 33.0 g/dL (01/11/15 5:49 AM) MCHC [32.0-36.0 g/dL] 13.2 % (01/23/15 4:40 AM) 13.5 % (01/16/15 4:53 AM) 13.2 % (01/11/15 5:49 AM) RDW [11.5-14.5 %] 289 K/CMM (01/23/15 4:40 AM) 278 K/CMM (01/16/15 4:53 AM) 311 K/CMM (01/11/15 5:49 AM) Platelet [133-450 K/CMM] 9.2 fL (01/23/15 4:40 AM) 8.8 fL (01/16/15 4:53 AM) 9.0 fL (01/11/15 5:49 AM) MPV [7.4-10.4 fL] 51.9 % (01/23/15 4:40 AM) 50.0 % (01/16/15 4:53 AM) 51.7 % (01/11/15 5:49 AM) Segs [45.0-75.0 %] 36.8 % (01/23/15 4:40 AM) 40.2 % *HI* (01/16/15 4:53 AM) 37.2 % (01/11/15 5:49 AM) Lymphocytes [20.0-40.0 %] 7.1 % (01/23/15 4:40 AM) 6.1 % (01/16/15 4:53 AM) 6.5 % (01/11/15 5:49 AM) Monocytes [2.0-12.0 %] 4.1 % *HI* (01/23/15 4:40 AM) 3.7 % (01/16/15 4:53 AM) 4.4 % *HI* (01/11/15 5:49 AM) Eosinophils [0.0-4.0 %] 0.1 % (01/23/15 4:40 AM) 0.0 % (01/16/15 4:53 AM) 0.2 % (01/11/15 5:49 AM) Basophils [0.0-1.0 %] 3.3 K/CMM (01/23/15 4:40 AM) 4.0 K/CMM (01/16/15 4:53 AM) 3.8 K/CMM (01/11/15 5:49 AM) Segs-Bands # [1.5-8.1 K/CMM] 2.3 K/CMM (01/23/15 4:40 AM) 3.2 K/CMM (01/16/15 4:53 AM) 2.7 K/CMM (01/11/15 5:49 AM) Lymphocytes # [1.0-5.5 K/CMM] 0.4 K/CMM (01/23/15 4:40 AM) 0.5 K/CMM (01/16/15 4:53 AM) 0.5 K/CMM (01/11/15 5:49 AM) Monocytes # [0.0-0.8 K/CMM] 0.3 K/CMM (01/23/15 4:40 AM) 0.3 K/CMM (01/16/15 4:53 AM) 0.3 K/CMM (01/11/15 5:49 AM) Eosinophils # [0.0-0.5 K/CMM] 0.0 K/CMM (01/23/15 4:40 AM) 0.0 K/CMM (01/16/15 4:53 AM) 0.0 K/CMM (01/11/15 5:49 AM) Basophils # [0.0-0.2 K/CMM] 27.1 seconds *HI* (01/25/15 6:02 AM) 26.5 seconds *HI* (01/23/15 4:40 AM) 26.2 seconds *HI* (01/20/15 6:13 AM) PT [12.0-14.7 seconds] 2.42 7 *HI* (01/25/15 6:02 AM) 2.36 8 *HI* (01/23/15 4:40 AM) 2.32 9 *HI* (01/20/15 6:13 AM) INR [0.85-1.17] 35.4 seconds (12/29/14 5:06 AM) PTT [22.9-35.8 seconds] 7Interpretive Data: RECOMMENDED RANGES FOR PROTIME INR: 2.0-3.0 for most medical and surgical thromboembolic states. 2.5-3.5 for artificial heart valves and recurrent embolism. INR SHOULD BE USED ONLY FOR PATIENTS ON STABLE ANTICOAGULANT THERAPY. 8Interpretive Data: RECOMMENDED RANGES FOR PROTIME INR: 2.0-3.0 for most medical and surgical thromboembolic states. 2.5-3.5 for artificial heart valves and recurrent embolism. INR SHOULD BE USED ONLY FOR PATIENTS ON STABLE ANTICOAGULANT THERAPY. 9Interpretive Data: RECOMMENDED RANGES FOR PROTIME INR: 2.0-3.0 for most medical and surgical thromboembolic states. 2.5-3.5 for artificial heart valves and recurrent embolism. INR SHOULD BE USED ONLY FOR PATIENTS ON STABLE ANTICOAGULANT THERAPY. Immunizations No data available for this section Procedures Procedure Date Related Diagnosis Body Site Video urodynamic study 12/07/14 Social History Social History Type Response Smoking Status Never smoker; Exposure to Tobacco Smoke None; Cigarette Smoking Last 365 Days No; Reg Smoking Cessation Counseling No Assessment and Plan Extracted from: Title: SCI progress note Author: Mary Mayo MD Date: 01/25/15 Impression and Plan Assessment and Plan Paraplegia: The patient is appropriate for inpatient rehabilitation at this time. Patient requires physician and 24 hour rehabilitation nursing for management of bowel, bladder, skin integrity, medication management, safety measures and preventing risk factors and complications. Patient requires 3 hours of therapy a day for 5-7 days a week, including: PT, OT, psychology, Exercise and Multidisciplinary Groups. These disciplines are needed in order to improve the patient s impairments in mobility, transfers, activities of daily living, and evaluation of durable medical equipment if needed at discharge. Social Work and Case Management are consulted to assist with discharge planning and family coping strategies. Neurogenic bowel: Nightly bowel program with docusate.,senna qNOON, dulcolax suppository (dc suppository, change to Enemeez) qPM w digital stimulation for regular BM's. . Hold miralax 2/2 loose stools. SMOG /. dc linzess, will increase senna, continue enemeez. Apprecaite GI consult. # T8 ASI C SCI w paraplegia: no pp or light touch sensation at T9 on right, but intact below T9. -s/p T12-L1 corpectomy and T11-L2 A/P -Cleared from TLSO by NSGY -continue PT/OT for strengthening/ROM/transfer training # Spasticity: BLE's, on low dose baclofen. titrate as indicated # HTN: DC'd losartan given BP, increased Coreg to 12.5mg q12 # Neurogenic Bowel: Accidents are no longer an issue. Bloody stools improving with Anusol. # Neurogenic Bladder: Valsalva voiding, emptying with safe pressures. Completed levaquin for UTI prior to CMG 01/11-01/15. # Pain: Taking amytriptilline, gabapentin, Lyrica. and oxycodone 10mg ER tid (dc'd) and oxycodone 5mg q4 prn. 01/22 Increased elavil to 100mg nightly. -continue to monitor for neuropathic pain # sleep: increased melatonin to 6mg nightly and add 3mg prn. # Endo: HgbA1c wnl. TSH very high, hypothyroid. Free T4 wnl. Repeat thyroid panel with TSH trending towards normal. Sick euthyroid per endocrine. no intervention. # Neurogenic skin: q2H turns to prevent decub ulcer formation. # DVT: continue warfarin for DVT until 04/26. INR checks, goal 2-3. Pharmacy dosing. Dispo: DC to home today. Patient ready to return to work. Letter provided to employer. Extracted from: Title: Discharge Summary Rehab * Author: Mary Mayo MD Date: 01/24/15 Discharge Information Discharge Summary Information Admitted 12/28/2014 Discharged 01/25/2015 Discharge Plan Instructions to patient Discharge medications: (Selected) Inpatient Medications Ordered Anusol-HC 25 mg rectal suppository: 25 mg, 1 supp, NV, BID Core.5 mg, 2 tab, PO, Q12H Enemeez Mini 283 mg rectal enema: 283 mg, 5 mL, NV, Bedtime Enemeez Mini 283 mg rectal enema: 283 mg, 5 mL, NV, Bedtime, PRN: Constipation Milk of Magnesia: 30 mL, PO, Daily, PRN: as needed for constipation Multivitamins with Folic Acid 0.4 mg oral tablet: 1 tab, PO, Daily Saline Flush 0.9%: 10 mL, IVP, PRN, PRN: Line Flush Vitamin C: 500 mg, 1 tab, CHEW, BID acetaminophen 325 mg oral tablet: 325 mg, 1 tab, PO, Q6H, PRN: For Temp > 100.4 F amitriptyline: 100 mg, 1 tab, PO, Bedtime baclofen: 10 mg, 1 tab, PO, Q8H-06 diphenhydrAMINE 25 mg oral tablet, disintegratin mg, 1 tab, PO, TID, PRN: Allergies ferrous sulfate: 325 mg, 1 tab, PO, BID-Meals gabapentin 300 mg oral capsule: 1,200 mg, 4 cap, PO, Q8H-06 melatonin 3 mg oral tablet: 3 mg, 1 tab, PO, Bedtime, PRN: as needed for insomnia melatonin: 6 mg, 2 tab, PO, Bedtime oxyCODONE 5 mg immediate release: 5 mg, 1 tab, PO, Q4H, PRN: Pain Score 4-6 pregabalin: 150 mg, 2 cap, PO, Q8H-06 senna 8.6 mg oral tablet: 25.8 mg, 3 tab, PO, QNoon tramadol 50 mg oral tablet: 100 mg, 2 tab, PO, Q6H, PRN: Pain Score 1-3 warfarin: 6 mg, 2 tab, PO, Q5PM Prescriptions Suspended Melatonin 3 mg oral tablet: 3 mg, 1 tab, PO, Bedtime, 30 tab, 0 Refill(s) amitriptyline 50 mg oral tablet: 50 mg, 1 tab, PO, Bedtime, 30 tab, 0 Refill(s) baclofen 10 mg oral tablet: 10 mg, 1 tab, PO, TID, 90 tab, 0 Refill(s) bisacodyl 10 mg rectal suppository: 10 mg, 1 supp, PO, Bedtime, 30 supp, 0 Refill(s) bisacodyl 10 mg rectal suppository: 10 mg, 1 supp, NV, QAM, 30 supp, 0 Refill(s) carvedilol 6.25 mg oral tablet: 6.25 mg, 1 tab, PO, Q12H, 60 tab, 0 Refill(s) fluconazole 100 mg oral tablet: 200 mg, 2 tab, PO, [id number], 5 tab, 0 Refill(s) gabapentin 300 mg oral capsule: 900 mg, 3 cap, PO, QID, 360 cap, 0 Refill(s) iron sulfate (ferrous sulfate) 325 mg oral tablet: 325 mg, 1 tab, PO, BID, 60 tab, 0 Refill(s) nystatin topical 100,000 units/g powder: 1 appl, TOP, TID, 30 gm, 0 Refill(s) polyethylene glycol 3350 oral powder for reconstitution: 17 gm, PO, Bedtime, 527 gm, 0 Refill(s) pregabalin 75 mg oral capsule: 150 mg, 2 cap, PO, TID, 120 cap, 5 Refill(s) senna 8.6 mg oral tablet: 17.2 mg, 2 tab, PO, Bedtime, 60 tab, 0 Refill(s) tramadol 50 mg oral tablet: 100 mg, 2 tab, PO, Q6H, PRN: Pain Score 1-5, 120 tab, 0 Refill(s) warfarin 1 mg oral tablet: 2.5 mg, 2.5 tab, PO, Q5PM, 90 tab, 0 Refill(s) Documented Medications Suspended acetaminophen 325 mg oral tablet: 325 mg, 1 tab, PO, Q6H, PRN: For Temp > 100.4 F, 0 Refill(s) diphenhydrAMINE 25 mg oral tablet: 25 mg, 1 tab, PO, TID, PRN: Itching, 0 Refill(s) oxyCODONE 5 mg oral tablet: 5 mg, 1 tab, PO, Q3H, PRN: Pain Score 4-6, 0 Refill(s) [id number] mg oral tablet, extended release: 10 mg, 1 tab, PO, Q8H, 0 Refill(s). 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 Herring at [facility], discharged from phase I rehab on 11/16/14, admitted for phase II rehab. Initial exam, T12 AIS C. Impairments/dx: -SCI -Paraplegia -spasticity -neuropathic pain -neurogenic bowel/bladder/skin -DVT - Decreased activity tolerance - Gait abnormality - Impaired balance and coordination - Impaired basic activities of daily living - Impaired instrumental activities of daily living - Impaired fine motor skills - Impaired community access - Impaired avocation PLAN: Rehabilitation: The patient will require physician oversight and coordination of an interdisciplinary team, 24 hour rehabilitation nursing for management of bowel, bladder, skin integrity, medication management, safety measures and preventing risk factors and complications. Patient will require a minimum of 3 hours of therapy a day for 5-7 days a week throughout the hospitalization, including at least the followin-2 hours Physical Therapy and 1-2 Occupational Therapy in order to improve the patient's impairments in mobility, transfers, and activities of daily living, swallowing and cognition and evaluation of durable medical equipment if needed at discharge. Social Work and Case Management will be consulted to assist with discharge planning and family coping strategies. Physician will manage the following medical issues: # T12 ASI C SCI w paraplegia: -s/p T12-L1 corpectomy and T11-L2 A/P -Cleared from TLSO by NSGY -continue PT/OT for strengthening/ROM/transfer training # Spasticity: increased in BLE's, on low dose baclofen. titrate as indicated # HTN: continue carvedilol and losartan, continue to monitor BP's # Neurogenic Bladder: rossi in place. check admission UA. DC Rossi in am and start training for ICP. # Neurogenic Bowel: loose accidents continue, but much improved. Nightly bowel program with docusate.,senna qNOON, dulcolax suppository qPM w digital stimulation for regular BM's. admission KUB. Hold miralax 2/2 loose stools. Recent colonoscopy significant for ulcer, on Linzess 145mg daily. SMOG tonight. # Pain: Taking amytriptilline, gabapentin, Lyrica. and oxycodone 10mg ER tid and oxycodone 5mg q4 prn. Will work on dc of opioids. -continue to monitor for neuropathic pain # Endo: will check HgbA1c/TSH # Neurogenic skin: q2H turns to prevent decub ulcer formation. # DVT: continue warfarin for DVT until 04/26. INR checks, goal 2-3. Pharmacy dosing. At home, was taking 4mg M, T, Th, Fr, Cueto and 5mg W, Sat. Dispo: pending at this time. Will discuss with CM / SW and team in rounds. Discharge Physician Follow-Up -PCP -[facility] Visit length: 70 minutes with >50% of the time spent counseling patient about tone management, neurogenic bowel management, neurogenic bladder management, physical and occupational therapy, and spinal cord injury with its medical and rehabilitation measures.
--- OUTSIDE RECORDS SUMMARY | 2018-07-03 11:02 | XMS REPORT | Summary of Care ---
Author Author [facility] Address Unknown Phone Unavailable Encounter PRANAV Pop(MELISSA) [id number] Date(s): 04/27/15 - 05/26/[address] Discharge Disposition: Home Attending Physician: Mary Mayo MD Vital Signs 1 2 3 Most recent to oldest [Reference Range]: 139/97 mmHg (05/13/15 4:43 PM) 150/98 mmHg *HI* (05/12/15 5:32 PM) 142/99 mmHg *HI* (05/10/15 5:43 PM) Blood Pressure [90-140/60-90 mmHg] 92 bpm (05/13/15 4:43 PM) 89 bpm (05/12/15 5:32 PM) 98 bpm (05/10/15 5:43 PM) Peripheral Pulse Rate [60-100 bpm] Problem List Condition Effective Dates Status Health Status Informant 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) Hypertension(Confirm Active ed) Vancomycin resistant Active enterococcus(Confirm ed) Neurogenic Active bladder(Confirmed) Neurogenic Active bladder(Confirmed) Neurogenic Active bowel(Confirmed) Paraparesis(Confirme Active d) Spasticity(Confirmed Active ) Urinary tract Active infection(Confirmed) Allergies, Adverse Reactions, Alerts Substance Reaction Severity Status NKDA Active NKFA Active Medications No data available for this section Results No data available for this section [...]
--- OUTSIDE RECORDS SUMMARY | 2018-07-03 11:02 | XMS REPORT | Summary of Care ---
Author Author [facility] Organization [facility] Address Unknown Phone Unavailable Encounter PRANAV Pop(MELISSA) [id number] Date(s): 03/18/15 - 04/16/[address] Discharge Disposition: Home Attending Physician: Mary Mayo MD Referring Physician: Mary Mayo MD Vital Signs Most recent to 1 oldest [Reference Range]: Blood Pressure 147/103 mmHg [90-140/60-90 mmHg] *HI* (03/18/15 1:12 PM) Most recent to 1 oldest [Reference Range]: Peripheral Pulse 92 bpm Rate [60-100 bpm] (03/18/15 1:12 PM) Problem List Condition Effective Dates Status Health [...]
--- OUTSIDE RECORDS SUMMARY | 2018-07-03 11:02 | XMS REPORT | Summary of Care ---
Author Organization Unknown Address Unknown Phone Unavailable Encounter [facility] Cesar_hugo(MELISSA) [id number] Date(s): 12/07/14 - 12/07/[address] [id number] Discharge Disposition: Home Physician Attending: Kulwinder Carpenter MD Physician_Referring: Kulwinder Carpenter MD Vital Signs Most recent to 1 oldest [Reference Range]: Height 170.18 cm (12/07/14 1:15 PM) Temperature Oral 97.9 DegF [96.4-99.1 DegF] (12/07/14 1:11 PM) Blood Pressure 103/55 mmHg [90-140/60-90 mmHg] (12/07/14 1:11 PM) Peripheral Pulse 95 bpm Rate [60-100 bpm] (12/07/14 1:11 PM) Weight 106.818 kg (12/07/14 1:15 PM) Body Mass Index 36.88 m2 (12/07/14 1:15 PM) Problem List Condition Effective Dates Status [...]
--- OUTSIDE RECORDS SUMMARY | 2018-07-03 11:02 | XMS REPORT | Summary of Care ---
Author Organization Unknown Address Unknown Phone Unavailable Encounter [facility] Kiesha(MELISSA) [id number] Date(s): 10/18/14 - 11/16/[address] Final: Discharge Disposition: Home Physician Attending: Mary Mayo MD Physician Admitting: Mary Mayo MD Vital Signs 1 2 3 Most recent to oldest [Reference Range]: 170.18 cm (11/10/14 5:24 PM) 170.18 cm (11/10/14 5:21 PM) 170.18 cm (11/10/14 5:14 PM) Height 110.966 kg (11/10/14 5:24 PM) 110.966 kg (11/10/14 5:21 PM) 110.966 kg (11/10/14 5:14 PM) Current Weight 97.4 DegF (11/15/14 7:35 AM) 98.5 DegF (11/15/14 12:53 AM) 98.5 DegF (11/14/14 12:27 AM) Temperature Oral [96.4-99.1 DegF] 119/57 mmHg (11/15/14 8:29 PM) Blood Pressure [90-140/60-90 mmHg] 121 mmHg (11/16/14 7:34 AM) 137 mmHg (11/16/14 12:25 AM) Systolic Blood Pressure [90-140 mmHg] 71 mmHg (11/16/14 7:34 AM) 90 mmHg (11/16/14 12:25 AM) Diastolic Blood Pressure [60-90 mmHg] 18 BRMIN (11/16/14 7:34 AM) 18 BRMIN (11/16/14 12:25 AM) 18 BRMIN (11/15/14 4:23 PM) Respiratory Rate [14-20 BRMIN] 79 bpm (11/16/14 7:34 AM) 97 bpm (11/16/14 12:25 AM) 95 bpm (11/15/14 8:29 PM) Peripheral Pulse Rate [60-100 bpm] 106.909 kg (10/18/14 4:57 PM) Weight 36.91 m2 (10/18/14 4:57 PM) Body Mass Index Problem List Condition Effective Dates Status Health Status Informant 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 (Same as: Tylenol) Start Date: 10/18/14 Stop Date: 11/16/14 Status: Discontinued acetaminophen 325 mg oral tablet 325 mg=1 tab, PO, Q6H, PRN For Temp > 100.4 F, 0 Refill(s) Start Date: 11/14/14 Status: Ordered amitriptyline 50 mg, 1 tab, Route: PO, Drug form: TAB, Bedtime, Dosing Weight 106.909, kg, Sta rt date: 11/09/14 21:00:00, Stop date: 12/08/14 21:00:00 Notes: (Same as: Elavil) Start Date: 11/09/14 Stop Date: 11/16/14 Status: Discontinued amitriptyline 25 mg, 1 tab, Route: PO, Drug form: TAB, Bedtime, Dosing Weight 106.909, kg, Sta rt date: 10/18/14 21:00:00, Stop date: 12/16/14 21:00:00 Notes: (Same as: Elavil) Start Date: 10/18/14 Stop Date: 11/09/14 Status: Discontinued amitriptyline 50 mg oral tablet 50 mg=1 tab, PO, Bedtime, # 30 tab, 0 Refill(s) Start Date: 11/14/14 Status: Ordered ascorbic acid 500 mg oral tablet 500 mg=1 tab, PO, BID, # 60 tab, 0 Refill(s) Start Date: 11/14/14 Stop Date: 11/15/14 Status: Discontinued baclofen 5 mg, 0.5 tab, Route: PO, Drug form: TAB, ONCE, Start date: 10/27/14 9:25:00, St op date: 10/27/14 9:25:00 Notes: (Same As: Daly) Start Date: 10/27/14 Stop Date: 10/27/14 Status: Completed baclofen 5 mg, 0.5 tab, Route: PO, Drug form: TAB, TID, Dosing Weight 106.909, kg, Start date: 10/18/14 21:00:00, Stop date: 12/17/14 13:00:00 Notes: (Same As: Daly) Start Date: 10/18/14 Stop Date: 11/16/14 Status: Discontinued baclofen 5 mg, 0.5 tab, Route: PO, Drug form: TAB, ONCE, Dosing Weight 106.909, kg, Start date: 11/08/14 0:00:00, Stop date: 11/08/14 0:00:00 Notes: (Same As: Daly) Start Date: 11/08/14 Stop Date: 11/08/14 Status: Completed baclofen 10 mg oral tablet 5 mg=0.5 tab, PO, TID, # 30 tab, 0 Refill(s) Start Date: 11/14/14 Status: Ordered Benadryl 25 mg, 1 tab, Route: PO, Drug form: TAB, TID, Dosing Weight 106.909, kg, PRN Itc matias, Start date: 10/18/14 17:37:00, Stop date: 12/17/14 17:36:00 Start Date: 10/18/14 Stop Date: 11/16/14 Status: Discontinued bisacodyl 10 mg, 1 supp, Route: WY, Drug form: SUPP, Bedtime, Dosing Weight 106.909, kg, S tart date: 10/18/14 21:00:00, Stop date: 12/16/14 21:00:00 Notes: (Same As: Dulcolax, Bisco-Lax) Start Date: 10/18/14 Stop Date: 10/31/14 Status: Discontinued bisacodyl 10 mg, 1 supp, Route: WY, Drug form: SUPP, ONCE, Start date: 11/01/14 10:08:00, Stop date: 11/01/14 10:08:00 Notes: Non-Formulary Start Date: 11/01/14 Stop Date: 11/01/14 Status: Completed bisacodyl 10 mg, 1 supp, Route: PO, Drug form: SUPP, Bedtime, Dosing Weight 106.909, kg, S tart date: 11/10/14 21:00:00, Duration: 30 day, Stop date: 12/09/14 21:00:00 Notes: (Same As: Dulcolax, Bisco-Lax) Start Date: 11/10/14 Stop Date: 11/16/14 Status: Discontinued bisacodyl 10 mg, 1 supp, Route: WY, Drug form: SUPP, Bedtime, Dosing Weight 106.909, kg, S tart date: 10/31/14 21:00:00, Duration: 30 day, Stop date: 11/29/14 21:00:00 Notes: Non-Formulary Start Date: 10/31/14 Stop Date: 11/01/14 Status: Discontinued bisacodyl 10 mg, 1 supp, Route: WY, Drug form: SUPP, ONCE, Dosing Weight 106.909, kg, Star t date: 11/01/14 9:31:00, Stop date: 11/01/14 9:31:00 Notes: (Same As: Dulcolax, Bisco-Lax) Start Date: 11/01/14 Stop Date: 11/01/14 Status: Voided With Results bisacodyl 10 mg, 1 supp, Route: WY, Drug form: SUPP, QAM, Dosing Weight 106.909, kg, Start date: 11/02/14 6:30:00, Duration: 30 day, Stop date: 12/01/14 6:30:00 Notes: (Same As: Dulcolax, Bisco-Lax) Start Date: 11/02/14 Stop Date: 11/16/14 Status: Discontinued bisacodyl 10 mg rectal suppository 10 mg=1 supp, PO, Bedtime, # 30 supp, 0 Refill(s) Start Date: 11/14/14 Status: Ordered bisacodyl 10 mg rectal suppository 10 mg=1 supp, WY, QAM, # 30 supp, 0 Refill(s) Start Date: 11/14/14 Status: Ordered carvedilol 6.25 mg, 1 tab, Route: PO, Drug form: TAB, Q12H, Dosing Weight 106.909, kg, Star t date: 10/18/14 21:00:00, Duration: 60 day, Stop date: 12/21/14 9:00:00 Notes: Give with food. (Same As: Coreg) Start Date: 10/18/14 Stop Date: 11/16/14 Status: Discontinued carvedilol 6.25 mg oral tablet 6.25 mg=1 tab, PO, Q12H, # 60 tab, 0 Refill(s) Start Date: 11/14/14 Status: Ordered cascara sagrada 450 mg, 1 cap, Route: PO, Drug Form: CAP, Dosing Weight 106.909, kg, ONCE, Start date: 11/01/14 16:54:00, Stop date: 11/01/14 16:54:00 Notes: Non-Formulary Item Start Date: 11/01/14 Stop Date: 11/01/14 Status: Completed cascara sagrada 450 mg, 1 cap, Route: PO, Drug Form: CAP, Dosing Weight 106.909, kg, ONCE, Start date: 10/18/14 17:29:00, Stop date: 10/18/14 17:29:00 Notes: Non-Formulary Item Start Date: 10/18/14 Stop Date: 10/18/14 Status: Completed cascara sagrada 450 mg, 1 cap, Route: PO, Drug Form: CAP, Dosing Weight 106.909, kg, ONCE, Start date: 10/30/14 7:08:00, Stop date: 10/30/14 7:08:00 Notes: Non-Formulary Item Start Date: 10/30/14 Stop Date: 10/30/14 Status: Completed cefepime + Sodium Chloride 0.9% IV 100 mL 1 gm, Route: IVPB, [id number], Dosing Weight 106.909, kg, (CrCl 30 - 49 ml/min), St art date: 10/19/14 20:00:00, Duration: 6 day, Stop date: 10/25/14 8:00:00 Notes: (Same As: Maxipime) Start Date: 10/19/14 Stop Date: 10/21/14 Status: Discontinued cefepime + Sodium Chloride 0.9% IV 100 mL 1 gm, Route: IVPB, Drug form: INJ, Q12H, Dosing Weight 106.909, kg, (CrCl 30 - 4 9 ml/min), Start date: 10/18/14 21:00:00, Duration: 30 day, Stop date: 11/17/14 9:00:00 Notes: (Same As: Maxipime) Start Date: 10/18/14 Stop Date: 10/19/14 Status: Discontinued Colace 100 mg oral capsule 100 mg, 1 cap, Route: PO, Drug form: CAP, BID, Dosing Weight 106.909, kg, Start date: 10/18/14 21:00:00, Duration: 30 day, Stop date: 11/17/14 8:30:00 Notes: (Same as: Colace) (Do Not Crush) Start Date: 10/18/14 Stop Date: 11/09/14 Status: Discontinued Coumadin 5 mg, 1 tab, Route: PO, Drug form: TAB, Q5PM, Start date: 10/31/14 17:00:00, Dur ation: 30 day, Stop date: 11/29/14 17:00:00 Notes: Nurse to ensure documentation of patient education per anticoagulation po licy.Avoid large intake of vitamin-K containing foods diet.(Same As: Coumadin) Start Date: 10/31/14 Stop Date: 11/07/14 Status: Discontinued Coumadin 2.5 mg, 1 tab, Route: PO, Drug form: TAB, Q5PM, Dosing Weight 106.909, kg, Start date: 11/07/14 17:00:00, Stop date: 12/06/14 17:00:00 Notes: Nurse to ensure documentation of patient education per anticoagulation po licy.Avoid large intake of vitamin-K containing foods diet.(Same As: Coumadin) Start Date: 11/07/14 Stop Date: 11/16/14 Status: Discontinued Coumadin 2 mg, 1 tab, Route: PO, Drug form: TAB, Q5PM, Start date: 10/31/14 17:00:00, Dur ation: 30 day, Stop date: 11/29/14 17:00:00 Notes: Nurse to ensure documentation of patient education per anticoagulation po licy.Avoid large intake of vitamin-K containing foods diet.(Same As: Coumadin) Start Date: 10/31/14 Stop Date: 11/07/14 Status: Discontinued Coumadin 7 mg, Route: PO, Drug form: TAB, Q5PM, Dosing Weight 106.909, kg, Start date: 17:00:00, Duration: 30 day, Stop date: 11/22/14 17:00:00 Notes: Nurse to ensure documentation of patient education per anticoagulation po licy.Avoid large intake of vitamin-K containing foods diet.(Same As: Coumadin) Start Date: 10/24/14 Stop Date: 10/31/14 Status: Voided With Results Dibucaine 1 appl, Route: TOP, PRN, Drug form: OINT, PRN Bowel Movements, Start date: 11/07 22:39:00, Duration: 30 day, Stop date: 12/07/14 22:38:00 Notes: Non-Formulary Drug (Same as: Nupercainal) Start Date: 11/07/14 Stop Date: 11/16/14 Status: Discontinued Diovan 80 mg, 1 tab, Route: PO, Drug form: TAB, Daily, Start date: 10/19/14 8:30:00, Du ration: 60 day, Stop date: 12/21/14 8:30:00 Notes: Same as Diovan Start Date: 10/19/14 Stop Date: 10/25/14 Status: Discontinued diphenhydrAMINE 25 mg oral tablet 25 mg=1 tab, PO, TID, PRN Itching, 0 Refill(s) Start Date: 11/14/14 Status: Ordered famotidine 20 mg oral tablet 20 mg, 1 tab, Route: PO, Drug form: TAB, BID, Dosing Weight 106.909, kg, Start d ate: 10/18/14 21:00:00, Duration: 30 day, Stop date: 12/17/14 8:30:00 Notes: (Same as: Pepcid) Start Date: 10/18/14 Stop Date: 11/15/14 Status: Discontinued ferrous sulfate 325 mg, 1 tab, Route: PO, Drug form: TAB, BID, Dosing Weight 106.909, kg, Start date: 11/04/14 21:00:00, Duration: 30 day, Stop date: 12/04/14 8:30:00 Notes: Give with food.iron elemental [id number] as ferrous sulfateDose=___mg taniya mental iron Start Date: 11/04/14 Stop Date: 11/16/14 Status: Discontinued ferrous sulfate 325 mg, 1 tab, Route: PO, Drug form: TAB, TID, Dosing Weight 106.909, kg, Start date: 10/25/14 13:00:00, Duration: 30 day, Stop date: 11/24/14 8:30:00 Notes: Give with food.iron elemental 72lb=488tf as ferrous sulfateDose=___mg taniya mental iron Start Date: 10/25/14 Stop Date: 11/04/14 Status: Discontinued FiberCon 1,250 mg, 2 tab, Route: PO, Drug form: TAB, TID-Meals, Dosing Weight 106.909, kg , PRN Constipation, Start date: 11/09/14 10:55:00, Duration: 30 day, Stop date: 12/09/14 10:54:00 Notes: Non-Formulary Drug(Same as: FiberCon) Start Date: 11/09/14 Stop Date: 11/16/14 Status: Discontinued fluconazole 200 mg, 2 tab, Route: PO, Drug form: TAB, [id number], Dosing Weight 106.909, kg, St art date: 11/09/14 13:00:00, Duration: 10 day, Stop date: 11/18/14 13:00:00 Notes: (Same as: Diflucan) Start Date: 11/09/14 Stop Date: 11/16/14 Status: Discontinued fluconazole 100 mg oral tablet 200 mg=2 tab, PO, [id number], # 5 tab, 0 Refill(s) Start Date: 11/14/14 Status: Ordered gabapentin 900 mg, 3 cap, Route: PO, Drug form: CAP, Q6H, Dosing Weight 106.909, kg, Start date: 10/29/14 12:00:00, Stop date: 11/28/14 6:00:00 Notes: (Same as: Neurontin) Start Date: 10/29/14 Stop Date: 11/16/14 Status: Discontinued gabapentin 600 mg, 1 tab, Route: PO, Drug form: TAB, Q6H, Dosing Weight 106.909, kg, Start date: 10/18/14 18:00:00, Stop date: 12/17/14 12:00:00 Notes: Same as Neurontin Start Date: 10/18/14 Stop Date: 10/29/14 Status: Discontinued gabapentin 300 mg oral capsule 900 mg=3 cap, PO, QID, # 360 cap, 0 Refill(s) Start Date: 11/14/14 Status: Ordered heparin 5,000 unit, 1 mL, Route: SUB-Q, Drug form: INJ, Q8H, Dosing Weight 106.909, kg, Start date: 10/19/14 16:00:00, Duration: 30 day, Stop date: 11/18/14 8:00:00 Notes: porcine heparin Start Date: 10/19/14 Stop Date: 10/22/14 Status: Discontinued heparin 5,000 unit, 1 mL, Route: SUB-Q, Drug form: INJ, ONCE, Start date: 10/19/14 8:53: 00, Stop date: 10/19/14 8:53:00 Notes: porcine heparin Start Date: 10/19/14 Stop Date: 10/19/14 Status: Completed iron sulfate (ferrous sulfate) 325 mg oral tablet 325 mg=1 tab, PO, BID, # 60 tab, 0 Refill(s) Start Date: 11/14/14 Status: Ordered Lasix 20 mg oral tablet 20 mg, 1 tab, Route: PO, Drug form: TAB, Daily, Dosing Weight 106.909, kg, Start date: 11/10/14 8:30:00, Duration: 7 day, Stop date: 11/16/14 8:30:00 Notes: (Same as: Lasix) May cause GI upset. Give with food or milk. Start Date: 11/10/14 Stop Date: 11/11/14 Status: Discontinued Lasix 20 mg oral tablet 20 mg, 1 tab, Route: PO, Drug form: TAB, BID, Dosing Weight 106.909, kg, Start d ate: 11/11/14 21:00:00, Duration: 7 day, Stop date: 11/18/14 8:30:00 Notes: (Same as: Lasix) May cause GI upset. Give with food or milk. Start Date: 11/11/14 Stop Date: 11/16/14 Status: Discontinued losartan 50 mg, Route: PO, Drug form: TAB, Daily, Dosing Weight 106.909, kg, Start date: 10/19/14 8:30:00, Duration: 30 day, Stop date: 11/17/14 8:30:00 Start Date: 10/19/14 Stop Date: 10/18/14 Status: Deleted Lovenox 110 mg, 0.73 mL, Route: SUB-Q, Drug form: INJ, [id number], Dosing Weight 106.909, kg, Start date: 10/22/14 10:00:00, Duration: 30 day, Stop date: 11/20/14 22:00:0 0 Notes: Nurse to ensure documentation of patient education per anticoagulation po licy. (Same as: Lovenox) Start Date: 10/22/14 Stop Date: 11/02/14 Status: Discontinued Lyrica 150 mg, 2 cap, Route: PO, Drug form: CAP, Q12H, Dosing Weight 106.909, kg, Start date: 10/20/14 21:00:00, Duration: 30 day, Stop date: 12/19/14 9:00:00 Notes: (Same as: Lyrica) Start Date: 10/20/14 Stop Date: 11/16/14 Status: Discontinued Lyrica 150 mg, 2 cap, Route: PO, Drug form: CAP, ONCE, Start date: 10/27/14 9:27:00, St op date: 10/27/14 9:27:00 Notes: (Same as: Lyrica) Start Date: 10/27/14 Stop Date: 10/27/14 Status: Completed Lyrica 100 mg, 1 cap, Route: PO, Drug form: CAP, Q12H, Dosing Weight 106.909, kg, Start date: 10/19/14 21:00:00, Duration: 30 day, Stop date: 11/18/14 9:00:00 Notes: (Same as: Lyrica) Start Date: 10/19/14 Stop Date: 10/20/14 Status: Discontinued Melatonin 3 mg oral tablet 3 mg, 1 tab, Route: PO, Drug Form: TAB, Dosing Weight 106.909, kg, Bedtime, Star t date: 10/18/14 22:00:00, Duration: 60 day, Stop date: 01/16/15 21:00:00 Notes: (Same as: Melatonin) Start Date: 10/18/14 Stop Date: 11/16/14 Status: Discontinued Melatonin 3 mg oral tablet 3 mg=1 tab, PO, Bedtime, # 30 tab, 0 Refill(s) Start Date: 11/14/14 Status: Ordered methyl salicylate topical ointment 1 appl, Route: TOP, TID, Drug form: OINT, Start date: 10/18/14 21:00:00, Duratio n: 30 day, Stop date: 12/17/14 13:00:00 Notes: Non-Formulary Drug (Same as:Analgesic [place]) Start Date: 10/18/14 Stop Date: 11/16/14 Status: Discontinued Milk of Magnesia 60 ml, Route: PO, Drug Form: SUSP, Dosing Weight 106.909, kg, ONCE, Start date: 11/07/14 22:34:00, Stop date: 11/07/14 22:34:00 Notes: (Same as: Milk of Magnesia, MOM) Start Date: 11/07/14 Stop Date: 11/07/14 Status: Completed Milk of Magnesia 60 ml, Route: PO, Drug Form: SUSP, Dosing Weight 106.909, kg, ONCE, STAT, Start date: 10/27/14 8:43:00, Stop date: 10/27/14 8:43:00 Notes: (Same as: Milk of Magnesia, MOM) Start Date: 10/27/14 Stop Date: 10/27/14 Status: Completed Milk of Magnesia 30 ml, Route: PO, Drug Form: SUSP, Dosing Weight 106.909, kg, ONCE, Start date: 11/01/14 16:55:00, Stop date: 11/01/14 16:55:00 Notes: (Same as: Milk of Magnesia, MOM) Start Date: 11/01/14 Stop Date: 11/01/14 Status: Completed Milk of Magnesia 60 ml, Route: PO, Drug Form: SUSP, Dosing Weight 106.909, kg, ONCE, Start date: 10/18/14 17:29:00, Stop date: 10/18/14 17:29:00 Notes: (Same as: Milk of Magnesia, MOM) Start Date: 10/18/14 Stop Date: 10/18/14 Status: Completed Milk of Magnesia 60 ml, Route: PO, Drug Form: SUSP, Dosing Weight 106.909, kg, ONCE, Start date: 10/30/14 7:08:00, Stop date: 10/30/14 7:08:00 Notes: (Same as: Milk of Magnesia, MOM) Start Date: 10/30/14 Stop Date: 10/30/14 Status: Completed MiraLax 34 gm, 2 pkt, Route: PO, Drug form: PWDR, QNoon, Dosing Weight 106.909, kg, Star t date: 10/31/14 12:00:00, Duration: 60 day, Stop date: 12/29/14 12:00:00 Notes: Dissolve in 8 oz of water or juice.(Same as: Miralax) Start Date: 10/31/14 Stop Date: 11/01/14 Status: Discontinued MiraLax 17 gm, 1 pkt, Route: PO, Drug form: PWDR, QNoon, Dosing Weight 106.909, kg, Star t date: 10/19/14 12:00:00, Stop date: 12/17/14 12:00:00 Notes: Dissolve in 8 oz of water or juice.(Same as: Miralax) Start Date: 10/19/14 Stop Date: 10/31/14 Status: Discontinued MiraLax 17 gm, 1 pkt, Route: PO, Drug form: PWDR, Bedtime, Dosing Weight 106.909, kg, St art date: 11/01/14 21:00:00, Duration: 60 day, Stop date: 12/30/14 21:00:00 Notes: Dissolve in 8 oz of water or juice.(Same as: Miralax) Start Date: 11/01/14 Stop Date: 11/16/14 Status: Discontinued MiraLax 17 gm, 1 pkt, Route: PO, Drug form: PWDR, QNoon, Dosing Weight 106.909, kg, Star t date: 11/01/14 12:00:00, Duration: 60 day, Stop date: 12/30/14 12:00:00 Notes: Dissolve in 8 oz of water or juice.(Same as: Miralax) Start Date: 11/01/14 Stop Date: 11/01/14 Status: Discontinued Normal Saline for Irrigation 60 mL, Route: IRRIG, Drug Form: SOLN, Dosing Weight 106.909, kg, Q8H, Start date : 11/08/14 0:00:00, Duration: 30 day, Stop date: 12/07/14 16:00:00 Start Date: 11/08/14 Stop Date: 11/07/14 Status: Deleted nystatin topical 100,000 units/g powder 1 appl, Route: TOP, TID, Drug form: PWDR, Start date: 10/18/14 21:00:00, Stop da te: 12/17/14 13:00:00 Notes: (Same as:Mycostatin, Nilstat) For external use only. Start Date: 10/18/14 Stop Date: 11/16/14 Status: Discontinued nystatin topical 100,000 units/g powder 1 appl, TOP, TID, # 30 gm, 0 Refill(s) Start Date: 11/14/14 Status: Ordered Omnipaque 300mg/ml 100 mL, Route: IVP, Drug Form: SOLN, Dosing Weight 106.909, kg, ONCALL, STAT, St art date: 11/09/14 15:07:00, Duration: 1 doses or times, Dose=2.2ml/kg, Max dos f=646ms --"To be infused by Radiology Staff ONLY Special Instructions: Dose=2.2ml/kg, Max [id number] --"To be infused by Radiolo gy Staff ONLY Notes: (Same as:Omnipaque 300). Start Date: 11/09/14 Stop Date: 11/09/14 Status: Completed oxyCODONE 5 mg immediate release 10 mg, 2 tab, Route: PO, Drug form: TAB, Q4H, Dosing Weight 106.909, kg, PRN Jostin n Score 4-6, Start date: 10/18/14 17:33:00, Stop date: 12/17/14 17:32:00 Notes: (Same as: Roxicodone) Start Date: 10/18/14 Stop Date: 10/20/14 Status: Discontinued oxyCODONE 5 mg immediate release 5 mg, 1 tab, Route: PO, Drug form: TAB, Q3H, Dosing Weight 106.909, kg, PRN Pain Score 4-6, Start date: 10/25/14 11:33:00, Duration: 30 day, Stop date: 11/24/14 11:32:00 Notes: (Same as: Roxicodone) Start Date: 10/25/14 Stop Date: 11/16/14 Status: Discontinued oxyCODONE 5 mg immediate release 5 mg, 1 tab, Route: PO, Drug form: TAB, Q3H, Dosing Weight 106.909, kg, Start da te: 10/20/14 12:00:00, Duration: 30 day, Stop date: 11/19/14 9:00:00 Notes: (Same as: Roxicodone) Start Date: 10/20/14 Stop Date: 10/25/14 Status: Discontinued oxyCODONE 5 mg immediate release 15 mg, 3 tab, Route: PO, Drug form: TAB, Q6H, Dosing Weight 106.909, kg, PRN Jostin n Score 7-10, Start date: 10/18/14 17:33:00, Duration: 30 day, Stop date: 17:32:00 Notes: (Same as: Roxicodone) Start Date: 10/18/14 Stop Date: 10/20/14 Status: Discontinued oxyCODONE 5 mg oral tablet 5 mg=1 tab, PO, Q3H, PRN Pain Score 4-6, 0 Refill(s) Start Date: 11/14/14 Status: Ordered [id number] mg oral tablet, extended release 10 mg=1 tab, PO, Q8H, 0 Refill(s) Start Date: 11/14/14 Status: Ordered oxyCONTIN 20 mg, 1 tab, Route: PO, Drug form: ERTAB, ONCE, Start date: 10/27/14 9:26:00, S top date: 10/27/14 9:26:00 Notes: Do not crush or chew.(Same as: OxyContin) Start Date: 10/27/14 Stop Date: 10/27/14 Status: Completed oxyCONTIN 20 mg, 1 tab, Route: PO, Drug form: ERTAB, ONCE, Start date: 10/20/14 10:11:00, Stop date: 10/20/14 10:11:00 Notes: Do not crush or chew.(Same as: OxyContin) Start Date: 10/20/14 Stop Date: 10/20/14 Status: Completed oxyCONTIN 10 mg, 1 tab, Route: PO, Drug form: ERTAB, Q8H, Dosing Weight 106.909, kg, Start date: 10/31/14 16:00:00, Duration: 30 day, Stop date: 11/30/14 8:00:00 Notes: Do not crush or chew.(Same as: OxyContin) Start Date: 10/31/14 Stop Date: 11/16/14 Status: Discontinued oxyCONTIN 20 mg, 1 tab, Route: PO, Drug form: ERTAB, Q8H, Dosing Weight 106.909, kg, Start date: 10/20/14 16:00:00, Duration: 30 day, Stop date: 11/19/14 8:00:00 Notes: Do not crush or chew.(Same as: OxyContin) Start Date: 10/20/14 Stop Date: 10/31/14 Status: Discontinued Pepcid 20 mg, 1 tab, Route: PO, Drug form: TAB, ONCE, Start date: 10/27/14 9:26:00, Sto p date: 10/27/14 9:26:00 Notes: (Same as: Pepcid) Start Date: 10/27/14 Stop Date: 10/27/14 Status: Completed polycarbophil 625 mg oral tablet 1,250 mg=2 tab, PO, TID-Meals, PRN Constipation, # 6 tab, 0 Refill(s) Start Date: 11/14/14 Status: Ordered polyethylene glycol 3350 oral powder for reconstitution 17 gm, PO, Bedtime, # 527 gm, 0 Refill(s) Start Date: 11/14/14 Status: Ordered potassium chloride 20 mEq oral tablet, extended release 40 mEq, 2 tab, Route: PO, Drug form: ERTAB, Bedtime, Dosing Weight 106.909, kg, Start date: 10/27/14 21:00:00, Duration: 1 doses or times, Stop date: 10/27/14 2 1:00:00 Notes: (Same as: K-Dur 20)"Do Not Crush" With food and full glass of water Start Date: 10/27/14 Stop Date: 10/27/14 Status: Completed potassium chloride 20 mEq oral tablet, extended release 40 mEq, 2 tab, Route: PO, Drug form: ERTAB, ONCE, Dosing Weight 106.909, kg, Loraine ority: NOW, Start date: 10/27/14 17:32:00, Stop date: 10/27/14 17:32:00 Notes: (Same as: K-Dur 20)"Do Not Crush" With food and full glass of water Start Date: 10/27/14 Stop Date: 10/27/14 Status: Completed pregabalin 75 mg oral capsule 150 mg=2 cap, PO, Q12H, # 120 cap, 0 Refill(s) Start Date: 11/14/14 Status: Ordered Saline Flush 0.9% 10 mL, Route: IVP, Drug Form: INJ, Dosing Weight 106.909, kg, PRN, PRN Line Flus h, Start date: 10/18/14 17:29:00, Stop date: 12/17/14 17:28:00 Notes: (Same as: BD Posiflush) Start Date: 10/18/14 Stop Date: 11/16/14 Status: Discontinued senna 8.6 mg oral tablet 17.2 mg, 2 tab, Route: PO, Drug Form: TAB, Dosing Weight 106.909, kg, QNoon, PRN Constipation, Start date: 10/20/14 12:24:00, Stop date: 11/19/14 12:23:00 Notes: (Same as: Senokot) Start Date: 10/20/14 Stop Date: 10/31/14 Status: Discontinued senna 8.6 mg oral tablet 17.2 mg, 2 tab, Route: PO, Drug Form: TAB, Dosing Weight 106.909, kg, Bedtime, S tart date: 11/01/14 21:00:00, Duration: 60 day, Stop date: 12/30/14 21:00:00 Notes: (Same as: Arabella) Start Date: 11/01/14 Stop Date: 11/16/14 Status: Discontinued senna 8.6 mg oral tablet 8.6 mg, 1 tab, Route: PO, Drug Form: TAB, Dosing Weight 106.909, kg, Bedtime, [place] N Constipation, Start date: 10/18/14 17:42:00, Stop date: 12/17/14 17:41:00 Notes: (Same as: Arabella) Start Date: 10/18/14 Stop Date: 10/20/14 Status: Discontinued senna 8.6 mg oral tablet 25.8 mg, 3 tab, Route: PO, Drug Form: TAB, Dosing Weight 106.909, kg, QNoon, PRN Constipation, Start date: 10/31/14 10:55:00, Duration: 60 day, Stop date: 12/30 10:54:00 Notes: (Same as: Arabella) Start Date: 10/31/14 Stop Date: 11/01/14 Status: Discontinued senna 8.6 mg oral tablet 17.2 mg=2 tab, PO, Bedtime, # 60 tab, 0 Refill(s) Start Date: 11/14/14 Status: Ordered SMOG Enema 900 ml, Route: [place], Drug Form: HERNAN, Dosing Weight 106.909, kg, ONCE, STAT, Start date: 10/27/14 8:44:00, Duration: 1 doses or times, Stop date: 10/27/14 8:44:00 Notes: Non formulary item Start Date: 10/27/14 Stop Date: 10/27/14 Status: Discontinued SMOG Enema 900 ml, Route: [place], Drug Form: HERNAN, Dosing Weight 106.909, kg, ONCE, Start date: 10/27/14 9:31:00, Stop date: 10/27/14 9:31:00 Notes: Non formulary item Start Date: 10/27/14 Stop Date: 10/27/14 Status: Completed SMOG Enema 900 ml, Route: [place], Drug Form: HERNAN, Dosing Weight 106.909, kg, ONCE, Start date: 11/01/14 16:55:00, Duration: 1 doses or times, Stop date: 11/01/14 16:55:00 Notes: Non formulary item Start Date: 11/01/14 Stop Date: 11/01/14 Status: Completed SMOG Enema 900 ml, Route: [place], Drug Form: HERNAN, Dosing Weight 106.909, kg, ONCE, Start date: 10/18/14 17:29:00, Stop date: 10/18/14 17:29:00, tonight Special Instructions: tonight Notes: Non formulary item Start Date: 10/18/14 Stop Date: 10/18/14 Status: Completed SMOG Enema 900 ml, Route: [place], Drug Form: HERNAN, Dosing Weight 106.909, kg, ONCE, Start date: 10/30/14 7:06:00, Duration: 1 doses or times, Stop date: 10/30/14 7:06:00 Notes: Non formulary item Start Date: 10/30/14 Stop Date: 10/30/14 Status: Completed sodium chloride 60 mL, Route: IRRIG, Start date: 11/08/14 0:00:00, Duration: 30 day, Stop date: 12/07/14 16:00:00 Start Date: 11/08/14 Stop Date: 11/16/14 Status: Discontinued tramadol 100 mg, 2 tab, Route: PO, Drug form: TAB, Q6H, Dosing Weight 106.909, kg, PRN Pa in Score 1-5, Start date: 10/18/14 17:43:00, Duration: 30 day, Stop date: 17:42:00 Notes: Not to exceed 400mg/day. (Same As: Ultram) Start Date: 10/18/14 Stop Date: 11/16/14 Status: Discontinued tramadol 50 mg oral tablet 100 mg=2 tab, PO, Q6H, PRN Pain Score 1-5, # 120 tab, 0 Refill(s) Start Date: 11/14/14 Status: Ordered Vitamin C 500 mg, 1 tab, Route: PO, Drug form: TAB, BID, Dosing Weight 106.909, kg, Start date: 11/04/14 21:00:00, Duration: 30 day, Stop date: 12/04/14 8:30:00 Notes: (Same as: Vitamin C) Start Date: 11/04/14 Stop Date: 11/16/14 Status: Discontinued warfarin 1 mg oral tablet 2.5 mg=2.5 tab, PO, Q5PM, # 90 tab, 0 Refill(s) Start Date: 11/14/14 Status: Ordered Zofran 4 mg, 1 tab, Route: PO, Drug form: TAB, ONCE, Dosing Weight 106.909, kg, Priorit y: STAT, Start date: 10/27/14 8:43:00, Stop date: 10/27/14 8:43:00 Notes: (Same as: Zofran) Start Date: 10/27/14 Stop Date: 10/27/14 Status: Completed Results ELECTROLYTES 1 2 3 Most recent to oldest [Reference Range]: 141 mEq/L (11/14/14 5:25 AM) 141 mEq/L (11/11/14 5:59 AM) 142 mEq/L (11/07/14 5:40 AM) Sodium Lvl [135-145 mEq/L] 3.7 mEq/L (11/14/14 5:25 AM) 3.8 mEq/L (11/11/14 5:59 AM) 3.6 mEq/L (11/07/14 5:40 AM) Potassium Lvl [3.5-5.1 mEq/L] 103 mEq/L (11/14/14 5:25 AM) 105 mEq/L (11/11/14 5:59 AM) 105 mEq/L (11/07/14 5:40 AM) Chloride Lvl [95-109 mEq/L] 30 mEq/L (11/14/14 5:25 AM) 29 mEq/L (11/11/14 5:59 AM) 29 mEq/L (11/07/14 5:40 AM) CO2 [24-32 mEq/L] 11.7 mEq/L (11/14/14 5:25 AM) 10.8 mEq/L (11/11/14 5:59 AM) 11.6 mEq/L (11/07/14 5:40 AM) AGAP [10.0-20.0 mEq/L] CHEM PANEL 1 2 3 Most recent to oldest [Reference Range]: 0.5 mg/dL (11/14/14 5:25 AM) 0.4 mg/dL *LOW* (11/11/14 5:59 AM) 0.4 mg/dL *LOW* (11/07/14 5:40 AM) Creatinine Lvl [0.5-1.4 mg/dL] 129 mL/min/1.73m2 1 *NA* (11/14/14 5:25 AM) 139 mL/min/1.73m2 2 *NA* (11/11/14 5:59 AM) 139 mL/min/1.73m2 3 *NA* (11/07/14 5:40 AM) eGFR 6 mg/dL *LOW* (11/14/14 5:25 AM) 7 mg/dL (11/11/14 5:59 AM) 6 mg/dL *LOW* (11/07/14 5:40 AM) BUN [7-22 mg/dL] 18 (11/11/14 5:59 AM) 10 (11/01/14 4:00 AM) 10 (10/28/14 6:45 AM) B/C Ratio [6-25] 91 mg/dL 4 (11/14/14 5:25 AM) 99 mg/dL 5 (11/11/14 5:59 AM) 96 mg/dL 6 (11/07/14 5:40 AM) Glucose Lvl [70-99 mg/dL] 6.5 g/dL (11/11/14 5:59 AM) 6.2 g/dL *LOW* (11/01/14 4:00 AM) 6.3 g/dL *LOW* (10/28/14 6:45 AM) Total Protein [6.4-8.4 g/dL] 3.0 g/dL *LOW* (11/11/14 5:59 AM) 2.6 g/dL *LOW* (11/01/14 4:00 AM) 2.2 g/dL *LOW* (10/28/14 6:45 AM) Albumin Lvl [3.5-5.0 g/dL] 3.5 g/dL (11/11/14 5:59 AM) 3.6 g/dL (11/01/14 4:00 AM) 4.1 g/dL *HI* (10/28/14 6:45 AM) Globulin [2.0-4.0 g/dL] 0.9 (11/11/14 5:59 AM) 0.7 (11/01/14 4:00 AM) 0.5 *LOW* (10/28/14 6:45 AM) A/G Ratio [0.7-1.6] 8.8 mg/dL (11/14/14 5:25 AM) 8.6 mg/dL (11/11/14 5:59 AM) 8.8 mg/dL (11/07/14 5:40 AM) Calcium Lvl [8.5-10.5 mg/dL] 4.6 mg/dL *HI* (11/14/14 5:25 AM) 5.7 mg/dL *HI* (11/07/14 5:40 AM) 5.3 mg/dL *HI* (10/31/14 4:52 AM) Phosphorus [2.5-4.5 mg/dL] 1.9 mg/dL (11/14/14 5:25 AM) 2.0 mg/dL (11/07/14 5:40 AM) 2.2 mg/dL (10/31/14 4:52 AM) Magnesium Lvl [1.8-2.4 mg/dL] 63 unit/L (11/11/14 5:59 AM) 52 unit/L (11/01/14 4:00 AM) 45 unit/L (10/28/14 6:45 AM) ALT [0-65 unit/L] 45 unit/L *HI* (11/11/14 5:59 AM) 45 unit/L *HI* (11/01/14 4:00 AM) 46 unit/L *HI* (10/28/14 6:45 AM) AST [0-37 unit/L] 100 unit/L (11/11/14 5:59 AM) 84 unit/L (11/01/14 4:00 AM) 76 unit/L (10/28/14 6:45 AM) Alk Phos [39-136 unit/L] 0.3 mg/dL (11/11/14 5:59 AM) 0.2 mg/dL (11/01/14 4:00 AM) 0.2 mg/dL (10/28/14 6:45 AM) Bili Total [0.2-1.3 mg/dL] 1Result Comment: [...] values reflect the clinical guidelines of the [place] [employer]. 5Interpretive Data: Adult reference range values reflect the clinical guidelines of the [place] [employer]. 6Interpretive Data: Adult reference range values reflect the clinical guidelines of the [place] [employer]. LIPIDS 1 2 3 Most recent to oldest [Reference Range]: 4.93 (10/19/14 7:29 AM) CHD Risk [3.90-5.80] 148 mg/dL (10/19/14 7:29 AM) Chol [<=199 mg/dL] 132 mg/dL (10/19/14 7:29 AM) Trig [<=149 mg/dL] 30 mg/dL *LOW* (10/19/14: AM) HDL [>=61 mg/dL] 92 mg/dL (10/19/14:29 AM) LDL (Calculated) [<=99 mg/dL] 26 *NA* (10/19/14:29 AM) VLDL SPECIAL CHEMISTRY 1 2 3 Most recent to oldest [Reference Range]: 5.5 % (10/19/14 7:29 AM) Hgb A1C [<=5.6 %] ANEMIA STUDY 1 2 3 Most recent to oldest [Reference Range]: 24 ug/dl *LOW* (10/19/14 7:29 AM) Iron [30-160 ug/dl] 467 ng/mL *HI* (10/19/14 7:29 AM) Ferritin Lvl [5-204 ng/mL] 13 % (10/19/14 7:29 AM) % Satur Fe [12-57 %] 164 ug/dl (10/19/14 7:29 AM) UIBC [110-370 ug/dl] 188 ug/dl *LOW* (10/19/14 7:29 AM) TIBC [228-428 ug/dl] URINE AND STOOL 1 2 3 Most recent to oldest [Reference Range]: Slight Cloudy (11/16/14 11:35 AM) Clear (11/07/14 6:47 PM) Slight Cloudy (10/28/14 6:45 AM) UA Turbidity [Clear] Yellow *NA* (11/16/14 11:35 AM) Light Yellow *NA* (11/07/14 6:47 PM) Yellow *NA* (10/28/14 6:45 AM) UA Color [Yellow] 6.5 (11/16/14 11:35 AM) 7.0 (10/28/14 6:45 AM) UA pH [5.0-8.0] 6.5 (11/07/14 6:47 PM) UA pH [5.0-8.0] 1.010 (11/16/14 11:35 AM) 1.010 (10/28/14 6:45 AM) UA Spec Grav [<=1.030] 1.008 (11/07/14 6:47 PM) UA Spec Grav [<=1.030] Negative (11/16/14 11:35 AM) Negative (10/28/14 6:45 AM) UA Glucose [Negative] Negative mg/dL *NA* (11/07/14 6:47 PM) UA Glucose [Negative mg/dL] Large *ABN* (11/16/14 11:35 AM) Small *ABN* (11/07/14 6:47 PM) Trace *ABN* (10/28/14 6:45 AM) UA Blood [Negative] Negative *NA* (11/16/14 11:35 AM) Negative *NA* (10/28/14 6:45 AM) UA Ketones [Negative] Negative mg/dL *NA* (11/07/14 6:47 PM) UA Ketones [Negative mg/dL] Negative (11/16/14 11:35 AM) Negative (10/28/14 6:45 AM) UA Protein [Negative] Negative mg/dL (11/07/14 6:47 PM) UA Protein [Negative mg/dL] 0.2 EU/dL (11/16/14 11:35 AM) 0.2 EU/dL (10/28/14 6:45 AM) UA Urobilinogen [0.1-1.0 EU/dL] <=1.0 mg/dL *NA* (11/07/14 6:47 PM) UA Urobilinogen [0.1-1.0 mg/dL] Negative *NA* (11/16/14 11:35 AM) Negative *NA* (11/07/14 6:47 PM) Negative *NA* (10/28/14 6:45 AM) UA Bili [Negative] Moderate *ABN* (11/16/14 11:35 AM) Moderate *ABN* (11/07/14 6:47 PM) Moderate *ABN* (10/28/14 6:45 AM) UA Leuk Est [Negative] Negative (11/16/14 11:35 AM) Negative (11/07/14 6:47 PM) Negative (10/28/14 6:45 AM) UA Nitrite [Negative] 11-20 /HPF *ABN* (11/16/14 11:35 AM) 11-20 /HPF *ABN* (10/28/14 6:45 AM) UA WBC [None Seen /HPF] 8 /HPF *HI* (11/07/14 6:47 PM) UA WBC [0-5 /HPF] 11-20 /HPF *ABN* (11/16/14 11:35 AM) 27 /HPF *HI* (11/07/14 6:47 PM) 3-5 /HPF *ABN* (10/28/14 6:45 AM) UA RBC [0-2 /HPF] Few /HPF (11/16/14 11:35 AM) Occasional /HPF *NA* (11/07/14 6:47 PM) Occasional /HPF (10/28/14 6:45 AM) UA Bacteria [None Seen /HPF] Rare /LPF (11/16/14 11:35 AM) UA Sq Epi [Few /LPF] None Seen *NA* (11/07/14 6:47 PM) UA Sq Epi None Seen (10/28/14 6:45 AM) UA Sq Epi [Few] Few /LPF *NA* (11/07/14 6:47 PM) UA Mucus [None Seen /LPF] Occasional /HPF *ABN* (11/07/14 6:47 PM) Occasional /HPF *ABN* (10/19/14 10:24 AM) UA [place] Yeast [None Seen /HPF] HEMATOLOGY 1 2 3 Most recent to oldest [Reference Range]: 6.0 K/CMM (11/14/14 5:25 AM) 5.7 K/CMM (11/11/14 5:59 AM) 8.6 K/CMM (11/08/14 1:24 PM) WBC [3.7-10.4 K/CMM] 3.93 M/CMM *LOW* (11/14/14 5:25 AM) 3.57 M/CMM *LOW* (11/11/14 5:59 AM) 3.85 M/CMM *LOW* (11/08/14 1:24 PM) RBC [4.20-5.40 M/CMM] 11.9 g/dL *LOW* (11/14/14 5:25 AM) 10.5 g/dL *LOW* (11/11/14 5:59 AM) 11.3 g/dL *LOW* (11/08/14 1:24 PM) Hgb [12.0-16.0 g/dL] 35.0 % *LOW* (11/14/14 5:25 AM) 31.8 % *LOW* (11/11/14 5:59 AM) 34.1 % *LOW* (11/08/14 1:24 PM) Hct [36.0-48.0 %] 89.3 fL (11/14/14 5:25 AM) 89.1 fL (11/11/14 5:59 AM) 88.7 fL (11/08/14 1:24 PM) MCV [80.0-98.0 fL] 30.3 pg (11/14/14 5:25 AM) 29.4 pg (11/11/14 5:59 AM) 29.5 pg (11/08/14 1:24 PM) MCH [27.0-31.0 pg] 33.9 g/dL (11/14/14 5:25 AM) 33.0 g/dL (11/11/14 5:59 AM) 33.2 g/dL (11/08/14 1:24 PM) MCHC [32.0-36.0 g/dL] 16.1 % *HI* (11/14/14 5:25 AM) 15.9 % *HI* (11/11/14 5:59 AM) 15.8 % *HI* (11/08/14 1:24 PM) RDW [11.5-14.5 %] 304 K/CMM (11/14/14 5:25 AM) 307 K/CMM (11/11/14 5:59 AM) 341 K/CMM (11/08/14 1:24 PM) Platelet [133-450 K/CMM] 9.0 fL (11/14/14 5:25 AM) 8.9 fL (11/11/14 5:59 AM) 8.9 fL (11/08/14 1:24 PM) MPV [7.4-10.4 fL] 54.4 % (11/14/14 5:25 AM) 53.8 % (11/11/14 5:59 AM) 57.8 % (11/07/14 5:40 AM) Segs [45.0-75.0 %] 1.0 % (10/22/14 3:33 AM) Bands [0.0-11.0 %] 26.6 % (11/14/14 5:25 AM) 28.9 % (11/11/14 5:59 AM) 28.3 % (11/07/14 5:40 AM) Lymphocytes [20.0-40.0 %] 0.0 % (10/22/14 3:33 AM) Atypical Lymphs [<=0.0 %] 7.1 % (11/14/14 5:25 AM) 7.5 % (11/11/14 5:59 AM) 6.4 % (11/07/14 5:40 AM) Monocytes [2.0-12.0 %] 11.0 % *HI* (11/14/14 5:25 AM) 9.4 % *HI* (11/11/14 5:59 AM) 6.6 % *HI* (11/07/14 5:40 AM) Eosinophils [0.0-4.0 %] 0.9 % (11/14/14 5:25 AM) 0.4 % (11/11/14 5:59 AM) 0.9 % (11/07/14 5:40 AM) Basophils [0.0-1.0 %] 3.2 K/CMM (11/14/14 5:25 AM) 3.2 K/CMM (11/11/14 5:59 AM) 3.3 K/CMM (11/07/14 5:40 AM) Segs-Bands # [1.5-8.1 K/CMM] 1.6 K/CMM (11/14/14 5:25 AM) 1.6 K/CMM (11/11/14 5:59 AM) 1.7 K/CMM (11/07/14 5:40 AM) Lymphocytes # [1.0-5.5 K/CMM] 0.4 K/CMM (11/14/14 5:25 AM) 0.4 K/CMM (11/11/14 5:59 AM) 0.4 K/CMM (11/07/14 5:40 AM) Monocytes # [0.0-0.8 K/CMM] 0.7 K/CMM *HI* (11/14/14 5:25 AM) 0.5 K/CMM (11/11/14 5:59 AM) 0.4 K/CMM (11/07/14 5:40 AM) Eosinophils # [0.0-0.5 K/CMM] 0.1 K/CMM (11/14/14 5:25 AM) 0.0 K/CMM (11/11/14 5:59 AM) 0.1 K/CMM (11/07/14 5:40 AM) Basophils # [0.0-0.2 K/CMM] 1 /100WB *NA* (10/22/14 3:33 AM) NRBC 100 *NA* (10/22/14 3:33 AM) Tot Cell Ct 1+ *ABN* (10/22/14 3:33 AM) Anisocyte [None Seen] Moderate *ABN* (10/22/14 3:33 AM) Polychrom [None Seen] See Note 7 (11/01/14 4:00 AM) Normal (10/22/14 3:33 AM) Plt Morph >100 mm/hr *ABN* (10/19/14 7:29 AM) Sed Rate [0-20 mm/hr] 26.0 seconds *HI* (11/16/14 4:10 AM) 26.2 seconds *HI* (11/14/14 5:25 AM) 27.9 seconds *HI* (11/11/14 5:59 AM) PT [12.0-14.7 seconds] 2.30 8 *HI* (11/16/14 4:10 AM) 2.32 9 *HI* (11/14/14 5:25 AM) 2.51 10 *HI* (11/11/14 5:59 AM) INR [0.85-1.17] 47.3 seconds 11 *HI* (10/19/14 5:32 AM) PTT [22.9-35.8 seconds] 7Result Comment: Few platelet clumps seen on smear, the actual platelet count might be slightly higher. 8Interpretive Data: RECOMMENDED RANGES FOR PROTIME INR: [...] ONLY FOR PATIENTS ON STABLE ANTICOAGULANT THERAPY. 10Interpretive Data: RECOMMENDED RANGES FOR PROTIME INR: 2.0-3.0 for most medical and surgical thromboembolic states. 2.5-3.5 for artificial heart valves and recurrent embolism. INR SHOULD BE USED ONLY FOR PATIENTS ON STABLE ANTICOAGULANT THERAPY. 11Interpretive Data: Heparin Therapeutic Range: 57 - 92 Seconds Immunizations No data available for this section Procedures No data available for this section Social History Social History Type Response Smoking Status Unknown if ever smoked; Exposure to Tobacco Smoke None; Cigarette Smoking Last 365 Days No; Reg Smoking Cessation Counseling No Assessment and Plan Extracted from: Title: Medicine SOAP Note Author: Keshav Ham MD Date: 11/16/14 Impression and Plan Diagnosis HTN- coreg. well controlled Spasticity- baclofen ID- completed course of cefepime Acute DVT- coumadin 2.5mg. F/U with PCP on Friday for INR check Debility- pt/ot . 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 Herring at [facility]. History began 07/23 with back pain and she went to urgent care where she was given meds and MRI performed. MRI revealed tumor and she was evaluated by Dr. Herring for surgical removal. At this point, she had pain and was taking pain medications. The pain was worsening. No weakness in the legs or problems with bowel/bladder. Timeline of operations/complications as follows: 09/12 surgical resection of GCT- patient could not move/feel legs post op. 09/14 re-exploration of surgical site for removal of hematoma. 09/16 IVC filter placed- clots in BLE, right worse than left. 09/30- wound drainage increasing with some headaches--> CSF leak with surgical repair. 10/07- persistent CSF leak requiring surgery for LP shunt. Also completed a course of antibiotics for UTI VRE with Zyvox. On admission, notes reveal Tmax 101. Feels constipated. Pain in BLE, 04/06, hypersensitivity and allodynia. She is on cefepime 1 gm q12, indication unlcear. Histories Past Medical History: No active or resolved past medical history items have been selected or recorded. Family History: No family history items have been selected or recorded. Procedure history: No active procedure history items have been selected or recorded. Social History Social & Psychosocial Habits Tobacco 10/18/2014 Use: Unknown if ever smoked Exposure to Tobacco Smoke None Cigarette Smoking Last 365 Days No Reg Smoking Cessation Counseling No . Hospital Course Hospital course as follows: - Dopplers revelaed extensive DVTs in BLE, left worse than right. Warfarin therapy from 10/24-04/26. Recommend repeat dopplers at that point. Home nursing to check INRs at home and PCP to follow, goal INR 2-3. She has been quite stable on 2.5mg q5pm - BLE edema, left worse than right. Initiated lasix 20mg q12, improved. - Neuropathic pain- significant pain on admission, improved with Gabapentin, Lyrica, Amitriptyline, Oxycontin 10mg q8 and oxycodone 5 mg prn. Will need a pain physician upon discharge to continue meds, although she should be able to wean herself off. Explained to patient. - Bowel incontinence with activity, imprved with twice daily bowel program. - Yeast UTI, on diflucan from 11/09-11/18. Bladder to be managesd with indwelling Palm, changed monthly by home nursing. Results Review Results review Labs (Last four charted values) WBC 6.0(NOV 14)5.7(NOV 11)8.6(NOV 08)5.9(NOV 07) Hgb L 11.9(NOV 14)L 10.5(NOV 11)L 11.3(OCT 14)L 10.5(NOV 07) Hct L 35.0(NOV 14)L 31.8(NOV 11)L 34.1(OCT 14)L 31.4(NOV 07) Plt 304(NOV 14)307(NOV 11)341(OCT 14)340(NOV 07) Na 141(NOV 14)141(NOV 11)142(NOV 07)145(OCT 11) K 3.7(NOV 14)3.8(NOV 11)3.6(NOV 07)4.2(NOV 05) CO2 30(NOV 14)29(NOV 11)29(NOV 07)28(NOV 05) Cl 103(NOV 14)105(NOV 11)105(NOV 07)108(NOV 05) Cr 0.5(NOV 14)L 0.4(NOV 11)L 0.4(NOV 07)0.5(NOV 05) BUN L 6(NOV 14)7(NOV 11)L 6(NOV 07)8(NOV 05) Glucose Random 91(NOV 14)99(NOV 11)96(NOV 07)91(NOV 05) Mg 1.9(NOV 14)2.0(NOV 07)2.2(OCT 31)2.0(OCT 24) Phos H 4.6(NOV 14)H 5.7(NOV 07)H 5.3(OCT 31)H 5.1(OCT 24) Ca 8.8(NOV 14)8.6(NOV 11)8.8(NOV 07)8.5(NOV 05) PT H 26.2(NOV 14)H 27.9(OCT 17)H 29.7(OCT 16)H 34.1(OCT 15) INR H 2.32(NOV 14)H 2.51(NOV 11)H 2.71(APR 16)H 3.21(NOV 09) PTT H 47.3(OCT 19) Lab results 11/14/2014 05:25 Sodium Lvl 141 mEq/L Normal Potassium Lvl 3.7 mEq/L Normal Chloride Lvl 103 mEq/L Normal CO2 30 mEq/L Normal AGAP 11.7 mEq/L Normal Creatinine Lvl 0.5 mg/dL Normal eGFR 129 mL/min/1.73m2 NA BUN 6 mg/dL LOW Glucose Lvl 91 mg/dL Normal Calcium Lvl 8.8 mg/dL Normal Phosphorus 4.6 mg/dL HI Magnesium Lvl 1.9 mg/dL Normal WBC X 10x3 6.0 K/CMM Normal RBC X 10x6 3.93 M/CMM LOW Hgb 11.9 g/dL LOW Hct 35.0 % LOW MCV 89.3 fL Normal MCH 30.3 pg Normal MCHC 33.9 g/dL Normal RDW 16.1 % HI Platelet 304 K/CMM Normal MPV 9.0 fL Normal Segs 54.4 % Normal Lymphocytes 26.6 % Normal Monocytes 7.1 % Normal Eosinophils 11.0 % HI Basophils 0.9 % Normal Segs-Bands # 3.2 K/CMM Normal Lymphocytes # 1.6 K/CMM Normal Monocytes # 0.4 K/CMM Normal Eosinophils # 0.7 K/CMM HI Basophils # 0.1 K/CMM Normal PROTIME 26.2 seconds HI INR 2.32 HI Discharge Plan Instructions to patient Discharge medications: (Selected) Inpatient Medications Ordered Benadryl: 25 mg, 1 tab, PO, TID, PRN: Itching Coumadin: 2.5 mg, 1 tab, PO, Q5PM Dibucaine: 1 appl, TOP, PRN, PRN: Bowel Movements FiberCon: 1,250 mg, 2 tab, PO, TID-Meals, PRN: Constipation Lasix 20 mg oral tablet: 20 mg, 1 tab, PO, BID Lyrica: 150 mg, 2 cap, PO, Q12H Melatonin 3 mg oral tablet: 3 mg, 1 tab, PO, Bedtime MiraLax: 17 gm, 1 pkt, PO, Bedtime Saline Flush 0.9%: 10 mL, IVP, PRN, PRN: Line Flush Vitamin C: 500 mg, 1 tab, PO, BID acetaminophen: 325 mg, 1 tab, PO, Q6H, PRN: For Temp > 100.4 F amitriptyline: 50 mg, 1 tab, PO, Bedtime baclofen: 5 mg, 0.5 tab, PO, TID bisacodyl: 10 mg, 1 supp, PO, Bedtime bisacodyl: 10 mg, 1 supp, [place], QAM carvedilol: 6.25 mg, 1 tab, PO, Q12H famotidine 20 mg oral tablet: 20 mg, 1 tab, PO, BID ferrous sulfate: 325 mg, 1 tab, PO, BID fluconazole: 200 mg, 2 tab, PO, [id number] gabapentin: 900 mg, 3 cap, PO, Q6H methyl salicylate topical ointment: 1 appl, TOP, TID nystatin topical 100,000 units/g powder: 1 appl, TOP, TID oxyCODONE 5 mg immediate release: 5 mg, 1 tab, PO, Q3H, PRN: Pain Score 4-6 oxyCONTIN: 10 mg, 1 tab, PO, Q8H senna 8.6 mg oral tablet: 17.2 mg, 2 tab, PO, Bedtime sodium chloride: 60 mL, IRRIG, Q8H tramadol: 100 mg, 2 tab, PO, Q6H, PRN: Pain Score 1-5 Prescriptions Prescribed Melatonin 3 mg oral tablet: 3 mg, 1 tab, PO, Bedtime, 30 tab, 0 Refill(s) amitriptyline 50 mg oral tablet: 50 mg, 1 tab, PO, Bedtime, 30 tab, 0 Refill(s) ascorbic acid 500 mg oral tablet: 500 mg, 1 tab, PO, BID, 60 tab, 0 Refill(s) baclofen 10 mg oral tablet: 5 mg, 0.5 tab, PO, TID, 30 tab, 0 Refill(s) bisacodyl 10 mg rectal suppository: 10 mg, 1 supp, PO, Bedtime, 30 supp, 0 Refill(s) bisacodyl 10 mg rectal suppository: 10 mg, 1 supp, [place], QAM, 30 supp, 0 Refill(s) carvedilol 6.25 mg oral tablet: 6.25 mg, 1 tab, PO, Q12H, 60 tab, 0 Refill(s) fluconazole 100 mg oral tablet: 200 mg, 2 tab, PO, [id number], 5 tab, 0 Refill(s) gabapentin 300 mg oral capsule: 900 mg, 3 cap, PO, QID, 360 cap, 0 Refill(s) iron sulfate (ferrous sulfate) 325 mg oral tablet: 325 mg, 1 tab, PO, BID, 60 tab, 0 Refill(s) nystatin topical 100,000 units/g powder: 1 appl, TOP, TID, 30 gm, 0 Refill(s) polycarbophil 625 mg oral tablet: 1,250 mg, 2 tab, PO, TID-Meals, PRN: Constipation, 6 tab, 0 Refill(s) polyethylene glycol 3350 oral powder for reconstitution: 17 gm, PO, Bedtime, 527 gm, 0 Refill(s) pregabalin 75 mg oral capsule: 150 mg, 2 cap, PO, Q12H, 120 cap, 0 Refill(s) senna 8.6 mg oral tablet: 17.2 mg, 2 tab, PO, Bedtime, 60 tab, 0 Refill(s) tramadol 50 mg oral tablet: 100 mg, 2 tab, PO, Q6H, PRN: Pain Score 1-5, 120 tab, 0 Refill(s) warfarin 1 mg oral tablet: 2.5 mg, 2.5 tab, PO, Q5PM, 90 tab, 0 Refill(s) Documented Medications Documented acetaminophen 325 mg oral tablet: 325 mg, 1 tab, PO, Q6H, PRN: For Temp > 100.4 F, 0 Refill(s) diphenhydrAMINE 25 mg oral tablet: 25 mg, 1 tab, PO, TID, PRN: Itching, 0 Refill(s) oxyCODONE 5 mg oral tablet: 5 mg, 1 tab, PO, Q3H, PRN: Pain Score 4-6, 0 Refill(s) [id number] mg oral tablet, extended release: 10 mg, 1 tab, PO, Q8H, 0 Refill(s). Follow up: Dr. Herring; [phone]. TLSO likely off 3months after last fusion on 09/14, about 12/12/14. PCP: within [address] Mayo upon removal of TLSO or sooner if needed for rehabilitation needs. Pain clinic consult ordered in case patient cannot have providers refill meds if needed. Addendum Unable to have claims collector consult re: [address] Ab/Pelvis. by CT will be burned on CD and given to patient for follow up with her claims collector. 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 Herring at [facility]. Initial rehab exam, T8 AIS C # Rehab: PT/OT 3 hours daily. TLSO when OOB. No supine, only side lying secondary to surgical incision and small coccyx stage II # Pain: neuropathic pain on gabapentin 600mg q6. Adding amitryptyline 25mg nightly. Oxycodone 10mg and 15mg q6 prn as well as tramadol 100mg prn. # Skin: change dressing q2-3 hours prn. Sidelying only for stage II coccyx ulcer. # ID: on cefepime 1 g IV q12. Indication not clear. Will continue. IM consulted. Had completed course for VRE UTI of Zyvox. # Neurogenic Bladder: Palm care. Will transition to ICP if body habitus allows. To discuss with team. # Neurogenic Bowel: [facility] bowel program with colace, senna, miralax, dulcolax supository and digital stimulation. # DVT: BLE DVTs, IVC filter in place. Was not discharged with anticoagulation. Initiating SQH q8 and repeat Dopplers. To discuss with Dr. Herring re: anticoagulation. # CV: HTN and obesity. C/w home losartan and new carvedilol. # GI ppx: on famotidine Dispo: pending team conference Follow up with Dr. Herring in 2 weeks [phone] PMR ATTENDING/INDIVIDUALIZED PLAN OF CARE The patient remains medically stable and has a favorable prognosis ongoing clinical and functional improvement. The patient has been, and will continue to be able to, participate in and benefit from PT 1-2 hrs/day, 5-7 days per week, OT 1-2 hrs/day, 5-7 days per week, which will continue throughout the entirety of the patient's hospitalization. The patient is anticipated to have measurable gains as a result of these interventions. Estimated length of stay is 4 weeks and at the time of discharge, anticipated function will be contact guard/standby assist for ADLs, and contact guard/standby assist for mobility at wheelchair level. Anticipate discharge to home with family support at that time. Visit length: 70 minutes with >50% of the time spent counseling patient about tone management, neurogenic bowel management, neurogenic bladder management, autonomuc dysreflexia, physical and occupational therapy, and spinal cord injury with its medical and rehabilitation measures. PMR ATTENDING/POST-ADMISSION PHYSICIAN EVALUATION There are no medical or functional changes since the preadmission assessment. The patient has ongoing medical and functional impairments that can safely be met in the IRF setting, and these needs cannot be adequately addressed in a lower level of care, as the patient requires 24hr nursing and daily medical management. The patient is able to participate in and benefit from an acute inpatient rehabilitation program, with anticipated measurable gains as a result of this program. Prior to the SCI the patient was independent with all ADLs and mobility. Currently, the patient requires maximum assistance for both ADLs and mobility.
--- OUTSIDE RECORDS SUMMARY | 2018-07-03 11:03 | XMS REPORT | Summary of Care ---
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) Hypertension(Confirm Active ed) Vancomycin resistant Active enterococcus(Confirm ed) Neurogenic Active bladder(Confirmed) Neurogenic Active bladder(Confirmed) Neurogenic Active bowel(Confirmed) Neuropathic Active pain(Confirmed) Neuropathic Resolved pain(Confirmed) Obesity(Confirmed) Active Paraparesis(Confirme Active d) SCI (spinal cord Active injury)(Confirmed)1 Spasticity(Confirmed Active ) Urinary tract Active infection(Confirmed) 1sci tumor removal Allergies, Adverse Reactions, Alerts Substance Reaction Severity Status NKDA Active NKFA Active Medications No data available for this section Results No data available for this section Immunizations No data available for this section Procedures Procedure Date Related Diagnosis Body Site CMG - Cystometrogram 08/11/15 Video urodynamic study 12/07/14 section IVC - Insertion of inferior vena caval filter1 Removal of spinal extradural tumor Social History Social History Type Response Smoking Status Never smoker; Exposure to Tobacco Smoke None; Cigarette Smoking Last 365 Days No; Reg Smoking Cessation Counseling No Assessment and Plan No data available for this section
--- OUTSIDE RECORDS SUMMARY | 2018-07-03 11:03 | XMS REPORT | Summary of Care ---
Author Author [facility] Address Unknown Phone Unavailable Encounter PRANAV Pop(MELISSA) [id number] Date(s): 08/02/15 - 08/31/15 [place] [address] [phone] Discharge Disposition: Home Attending Physician: Mary Mayo MD Vital Signs 1 2 3 Most recent to oldest [Reference Range]: 134/86 mmHg (08/25/15 4:21 PM) 126/73 mmHg (08/23/15 4:00 PM) 165/93 mmHg *HI* (08/18/15 4:07 PM) Blood Pressure [90-140/60-90 mmHg] 68 bpm (08/25/15 4:21 PM) 85 bpm (08/23/15 4:00 PM) 83 bpm (08/18/15 4:07 PM) Peripheral Pulse Rate [60-100 bpm] Problem [...]
--- OUTSIDE RECORDS SUMMARY | 2018-07-03 11:03 | XMS REPORT | Summary of Care ---
Author Author [facility] Address Unknown Phone Unavailable Encounter PRANAV Pop(MELISSA) [id number] Date(s): 08/21/15 - 08/21/[address] [phone] Discharge Disposition: Home Attending Physician: Demi Reyna MD Referring Physician: Demi Reyna MD Vital Signs Most recent to 1 oldest [Reference Range]: Height 170.18 cm (08/21/15 8:52 AM) Blood Pressure 140/93 mmHg [90-140/60-90 mmHg] (08/21/15 8:52 AM) Respiratory Rate 20 BRMIN [14-20 BRMIN] (08/21/15 8:52 AM) Peripheral Pulse 80 bpm Rate [60-100 bpm] (08/21/15 8:52 AM) Weight 106.818 kg (08/21/15 8:52 AM) Body Mass Index 36.88 m2 (08/21/15 8:52 AM) Problem List Condition Effective Dates Status Health Status Informant 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) Hypertension(Confirm Active ed) Vancomycin resistant Active enterococcus(Confirm ed) Neurogenic Active bladder(Confirmed) Neurogenic Active bladder(Confirmed) Neurogenic Active bowel(Confirmed) Paraparesis(Confirme Active d) Spasticity(Confirmed Active ) Urinary tract Active infection(Confirmed) Allergies, Adverse Reactions, Alerts Substance Reaction Severity Status NKDA Active NKFA Active Medications biotin 5000 mcg oral tablet, disintegrating See Instructions, 96038 mcg PO, # 30 caplet, 0 Refill(s) Start Date: 08/21/15 Status: Ordered Cymbalta 30 mg oral delayed release capsule 30 mg=1 cap, PO, Daily, # 30 cap, 0 Refill(s), Pharmacy: [id number] Start Date: 08/21/15 Status: Ordered warfarin 6 mg oral tablet 6 mg=1 tab, PO, Daily, 6 mg Fri- Sat 5 mg Friday, # 30 tab, 0 Refill(s) Start Date: 08/21/15 Status: Ordered zolpidem 10 mg oral tablet 10 mg=1 tab, PO, Bedtime, PRN for sleep, X 14 day, # 14 tab, 0 Refill(s) Start Date: 08/21/15 Stop Date: 09/04/15 Status: Ordered Results No data available for [...]
--- OUTSIDE RECORDS SUMMARY | 2018-07-03 11:03 | XMS REPORT | Summary of Care ---
Author Author [facility] Address Unknown Phone Unavailable Encounter PRANAV Pop(MELISSA) [id number] Date(s): 11/01/15 - 11/30/15 [place] [address] Discharge Disposition: Home Attending Physician: Mary Mayo MD Vital Signs 1 2 3 Most recent to oldest [Reference Range]: 128/71 mmHg (11/29/15 5:05 PM) 117/76 mmHg (11/22/15 4:11 PM) 122/80 mmHg (11/08/15 4:31 PM) Blood Pressure [90-140/60-90 mmHg] 72 bpm (11/29/15 5:05 PM) 76 bpm (11/22/15 4:11 PM) 82 bpm (11/08/15 4:31 PM) Peripheral Pulse Rate [60-100 bpm] Problem [...]
--- OUTSIDE RECORDS SUMMARY | 2018-07-03 11:03 | XMS REPORT | Summary of Care ---
Author Author [facility] Address Unknown Phone Unavailable Encounter PRANAV Pop(MELISSA) [id number] Date(s): 08/14/15 - 08/14/[address] Discharge Disposition: Home Attending Physician: Dallas Gomez MD Referring Physician: Dallas Gomez MD Vital Signs Most recent to 1 oldest [Reference Range]: Height 170.18 cm (08/14/15 1:49 PM) Blood Pressure 172/135 mmHg [90-140/60-90 mmHg] *HI* (08/14/15 1:49 PM) Respiratory Rate 20 BRMIN [14-20 BRMIN] (08/14/15 1:49 PM) Peripheral Pulse 89 bpm Rate [60-100 bpm] (08/14/15 1:49 PM) Weight 106.818 kg (08/14/15 1:49 PM) Body Mass Index 36.88 m2 (08/14/15 1:49 PM) Problem List Condition Effective Dates Status Health Status Informant 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) Hypertension(Confirm Active ed) Vancomycin resistant Active enterococcus(Confirm ed) Neurogenic Active bladder(Confirmed) Neurogenic Active bladder(Confirmed) Neurogenic Active bowel(Confirmed) Paraparesis(Confirme Active d) Spasticity(Confirmed Active ) Urinary tract Active infection(Confirmed) Allergies, Adverse Reactions, Alerts Substance Reaction Severity Status NKDA Active NKFA Active Medications cloNIDine 0.1 mg oral tablet 0.1 mg, PO, 1 TAB prn for SBP GREATER THEN 160, OR DIASTOLIC bP GREATER THAN 100 , DOSE 0.1MG, 0 Refill(s) Start Date: 08/14/15 Status: Ordered Results No data available for this section Immunizations No data available for this section Procedures Procedure Date Related Diagnosis Body Site CMG - Cystometrogram 08/11/15 Video urodynamic study 12/07/14 Social History Social History Type Response Smoking Status Never smoker; Exposure to Tobacco Smoke None; Cigarette Smoking Last 365 Days No; Reg Smoking Cessation Counseling No Assessment and Plan No data available for this section
--- OUTSIDE RECORDS SUMMARY | 2018-07-03 11:03 | XMS REPORT | Summary of Care ---
Author Author [facility] Address Unknown Phone Unavailable Encounter PRANAV Pop(MELISSA) [id number] Date(s): 10/12/15 - 10/12/[address] Discharge Disposition: Home Attending Physician: Mary Mayo MD Referring Physician: Mary Mayo MD Vital Signs Most recent to 1 oldest [Reference Range]: Height 170.18 cm (10/12/15 8:51 AM) Blood Pressure 136/85 mmHg [90-140/60-90 mmHg] (10/12/15 8:51 AM) Respiratory Rate 20 BRMIN [14-20 BRMIN] (10/12/15 8:51 AM) Peripheral Pulse 73 bpm Rate [60-100 bpm] (10/12/15 8:51 AM) Weight 106.818 kg (10/12/15 8:51 AM) Body Mass Index 36.88 m2 (10/12/15 8:51 AM) Problem List Condition Effective Dates Status [...] Severity Status NKDA Active NKFA Active Medications Abdominal Binder 9" 3-Panel Waist 46"-62" 1 ea, MISC, ONCE, # 1 ea, 0 Refill(s) Start Date: 10/12/15 Status: Ordered Compression Stockings 1 ea, MISC, Daily, # 1 ea, 0 Refill(s) Start Date: 10/12/15 Status: Ordered Lovenox 100 mg/mL subcutaneous solution 100 mg, SUB-Q, Q12H, # 60 inj, 11 Refill(s), Pharmacy: [id number] Start Date: 10/12/15 Status: Ordered Results No data available for [...]
--- OUTSIDE RECORDS SUMMARY | 2018-07-03 11:03 | XMS REPORT | Summary of Care ---
Author Author [facility] Address Unknown Phone Unavailable Encounter PRANAV Pop(MELISSA) [id number] Date(s): 09/12/15 - 09/12/[address] Discharge Disposition: Home Attending Physician: Mary Mayo MD Referring Physician: Mary Mayo MD Vital Signs Most recent to 1 oldest [Reference Range]: Height 170.18 cm (09/12/15 3:37 PM) Temperature Oral 99 DegF [96.4-99.1 DegF] (09/12/15 3:37 PM) Blood Pressure 141/83 mmHg [90-140/60-90 mmHg] *HI* (09/12/15 3:37 PM) Respiratory Rate 20 BRMIN [14-20 BRMIN] (09/12/15 3:37 PM) Peripheral Pulse 88 bpm Rate [60-100 bpm] (09/12/15 3:37 PM) Weight 106.818 kg (09/12/15 3:37 PM) Body Mass Index 36.88 m2 (09/12/15 3:37 PM) Problem List Condition Effective Dates Status Health Status Informant 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) Hypertension(Confirm Active ed) Vancomycin resistant Active enterococcus(Confirm ed) Neurogenic Active bladder(Confirmed) Neurogenic Active bladder(Confirmed) Neurogenic Active bowel(Confirmed) Neuropathic Active pain(Confirmed) Paraparesis(Confirme Active d) SCI (spinal cord Active injury)(Confirmed)1 Spasticity(Confirmed Active ) Urinary tract Active infection(Confirmed) 1sci tumor removal Allergies, Adverse Reactions, Alerts Substance Reaction Severity Status NKDA Active NKFA Active Medications gabapentin 400 mg oral capsule 1,600 mg=4 cap, PO, TID, take 3 caps in the morning, afternoon, and 4 caps at ni ght., # 360 cap, 11 Refill(s), Pharmacy: [id number] Start Date: 09/12/15 Status: Ordered Results No data available for [...]
--- OUTSIDE RECORDS SUMMARY | 2018-07-03 11:03 | XMS REPORT | Summary of Care ---
Author Author [facility] Address Unknown Phone Unavailable Encounter HQ Kiesha(MELISSA) [id number] Date(s): 03/27/16 - 03/27/16 [place] [address] [place], [place] [address] [phone] Discharge Disposition: Home or Self Care Attending Physician: Cornelius Day MD Referring Physician: Cornelius Day MD Vital Signs Most recent to 1 oldest [Reference Range]: Height 170.18 cm (03/27/16 3:28 PM) Blood Pressure 152/95 mmHg [90-140/60-90 mmHg] *HI* (03/27/16 3:28 PM) Respiratory Rate 18 BRMIN [14-20 BRMIN] (03/27/16 3:28 PM) Peripheral Pulse 83 bpm Rate [60-100 bpm] (03/27/16 3:28 PM) Weight 109.091 kg (03/27/16 3:28 PM) Body Mass Index 37.67 m2 (03/27/16 3:28 PM) Problem List Condition Effective Dates Status [...] Status NKDA Active NKFA Active Medications No Known Medications Results No data available for this section Immunizations No data available for this section Procedures Procedure Date Related Diagnosis Body Site CMG - Cystometrogram 1/15/16 Video urodynamic study 12/07/14 section IVC - Insertion of inferior vena caval filter1 Removal of spinal extradural tumor Social History Social History Type Response Smoking Status Never smoker; Exposure to Tobacco Smoke None; Cigarette Smoking Last 365 Days No; Reg Smoking Cessation Counseling No Assessment and Plan No data available for this section
--- OUTSIDE RECORDS SUMMARY | 2018-07-03 11:03 | XMS REPORT | Summary of Care ---
Author Author [facility] Organization [facility] Address Unknown Phone Unavailable Encounter PRANAV Pop(MELISSA) [id number] Date(s): 11/14/15 - 11/14/15 [facility] [address] [place] [address]- [phone] Discharge Diagnosis: Essential (primary) hypertension Discharge Disposition: Home Attending Physician: Brendon Rios MD Vital Signs Most recent to 1 2 oldest [Reference Range]: Height 172.72 cm (11/14/15 11:52 AM) Temperature Oral 98.2 DegF 97.4 DegF [96.4-99.1 DegF] (11/14/15 1:46 PM) (11/14/15 11:52 AM) Blood Pressure 157/94 mmHg 158/98 mmHg [90-140/60-90 mmHg] *HI* *HI* (11/14/15 1:46 PM) (11/14/15 11:52 AM) Respiratory Rate 15 BRMIN 18 BRMIN [14-20 BRMIN] (11/14/15 1:46 PM) (11/14/15 11:52 AM) Peripheral Pulse 90 bpm 111 bpm Rate [60-100 bpm] (11/14/15 1:46 PM) *HI* (11/14/15 11:52 AM) Weight 104.545 kg (11/14/15 11:52 AM) Body Mass Index 35.04 m2 (11/14/15 11:52 AM) Problem List Condition Effective Dates Status [...] Severity Status NKDA Active NKFA Active Medications Saline Flush 0.9% 10 mL, Route: IVP, Drug Form: INJ, Dosing Weight 104.545, kg, PRN, PRN Line Flus h, Start date: 11/14/15 12:13:00 CDT, Duration: 30 day, Stop date: 12/14/15 12:1 2:00 CDT Notes: (Same as: BD Posiflush) Start Date: 11/14/15 Stop Date: 11/14/15 Status: Discontinued Results ELECTROLYTES Most recent to 1 oldest [Reference Range]: Sodium Lvl [135-145 136 mEq/L mEq/L] (11/14/15 12:45 PM) Potassium Lvl 3.3 mEq/L [3.5-5.1 mEq/L] *LOW* (11/14/15 12:45 PM) Chloride Lvl [95-109 102 mEq/L mEq/L] (11/14/15 12:45 PM) CO2 [24-32 mEq/L] 26 mEq/L (11/14/15 12:45 PM) AGAP [10.0-20.0 11.3 mEq/L mEq/L] (11/14/15 12:45 PM) CHEM PANEL Most recent to 1 oldest [Reference Range]: Creatinine Lvl 0.52 mg/dL [0.50-1.40 mg/dL] (11/14/15 12:45 PM) eGFR 127 mL/min/1.73m2 1 *NA* (11/14/15 12:45 PM) BUN [7-22 mg/dL] 10 mg/dL (11/14/15 12:45 PM) B/C Ratio [6-25] 19 (11/14/15 12:45 PM) Glucose Lvl [70-99 146 mg/dL mg/dL] *HI* (11/14/15 12:45 PM) Total Protein 8.0 g/dL [6.4-8.4 g/dL] (11/14/15 12:45 PM) Albumin Lvl [3.5-5.0 3.8 g/dL g/dL] (11/14/15 12:45 PM) Globulin [2.0-4.0 4.2 g/dL g/dL] *HI* (11/14/15 12:45 PM) A/G Ratio [0.7-1.6] 0.9 (11/14/15 12:45 PM) Calcium Lvl 8.7 mg/dL [8.5-10.5 mg/dL] (11/14/15 12:45 PM) ALT [0-65 unit/L] 131 unit/L *HI* (11/14/15 12:45 PM) AST [0-37 unit/L] 50 unit/L *HI* (11/14/15 12:45 PM) Alk Phos [39-136 129 unit/L unit/L] (11/14/15 12:45 PM) Bili Total [0.2-1.3 0.3 mg/dL mg/dL] (11/14/15 12:45 PM) 1Result Comment: The eGFR is calculated using [...] be mul tiplied by the estimated BMI. CARDIAC ENZYMES Most recent to 1 oldest [Reference Range]: Total CK [12-191 161 unit/L unit/L] (11/14/15 12:45 PM) CK MB [0.5-3.6 2.9 ng/mL ng/mL] (11/14/15 12:45 PM) CK MB Index 1.8 [0.0-2.5] (11/14/15 12:45 PM) Troponin-I <0.02 ng/mL [0.00-0.40 ng/mL] (11/14/15 12:45 PM) BNP [<=100 pg/mL] 3 pg/mL (11/14/15 12:45 PM) URINE AND STOOL Most recent to 1 oldest [Reference Range]: UA Turbidity [Clear] Clear (11/14/15 12:45 PM) UA Color [Yellow] Yellow *NA* (11/14/15 12:45 PM) UA pH [5.0-8.0] 6.0 (11/14/15 12:45 PM) UA Spec Grav 1.015 [<=1.030] (11/14/15 12:45 PM) UA Glucose [Negative 150 mg/dL mg/dL] *ABN* (11/14/15 12:45 PM) UA Blood [Negative] Small *ABN* (11/14/15 12:45 PM) UA Ketones [Negative Negative mg/dL mg/dL] *NA* (11/14/15 12:45 PM) UA Protein [Negative 30 mg/dL mg/dL] *ABN* (11/14/15 12:45 PM) UA Urobilinogen 4.0 mg/dL [0.1-1.0 mg/dL] *HI* (11/14/15 12:45 PM) UA Bili [Negative] Negative *NA* (11/14/15 12:45 PM) UA Leuk Est Negative [Negative] (11/14/15 12:45 PM) UA Nitrite Negative [Negative] (11/14/15 12:45 PM) UA WBC [0-5 /HPF] 2 /HPF (11/14/15 12:45 PM) UA RBC [0-2 /HPF] 2 /HPF (11/14/15 12:45 PM) UA Sq Epi [Few /LPF] Few /LPF *NA* (11/14/15 12:45 PM) UA Amorph Heather [None Occasional /HPF Seen /HPF] *NA* (11/14/15 12:45 PM) HEMATOLOGY Most recent to 1 oldest [Reference Range]: WBC [3.7-10.4 K/CMM] 11.4 K/CMM *HI* (11/14/15 12:45 PM) RBC [4.20-5.40 5.00 M/CMM M/CMM] (11/14/15 12:45 PM) Hgb [12.0-16.0 g/dL] 14.9 g/dL (11/14/15 12:45 PM) Hct [36.0-48.0 %] 44.2 % (11/14/15 12:45 PM) MCV [80.0-98.0 fL] 88.5 fL (11/14/15 12:45 PM) MCH [27.0-31.0 pg] 29.8 pg (11/14/15 12:45 PM) MCHC [32.0-36.0 33.6 g/dL g/dL] (11/14/15 12:45 PM) RDW [11.5-14.5 %] 13.0 % (11/14/15 12:45 PM) Platelet [133-450 334 K/CMM K/CMM] (11/14/15 12:45 PM) MPV [7.4-10.4 fL] 8.7 fL (11/14/15 12:45 PM) Segs [45.0-75.0 %] 64.1 % (11/14/15 12:45 PM) Lymphocytes 27.6 % [20.0-40.0 %] (11/14/15 12:45 PM) Monocytes [2.0-12.0 5.8 % %] (11/14/15 12:45 PM) Eosinophils [0.0-4.0 2.2 % %] (11/14/15 12:45 PM) Basophils [0.0-1.0 0.3 % %] (11/14/15 12:45 PM) Segs-Bands # 7.3 K/CMM [1.5-8.1 K/CMM] (11/14/15 12:45 PM) Lymphocytes # 3.1 K/CMM [1.0-5.5 K/CMM] (11/14/15 12:45 PM) Monocytes # [0.0-0.8 0.7 K/CMM K/CMM] (11/14/15 12:45 PM) Eosinophils # 0.2 K/CMM [0.0-0.5 K/CMM] (11/14/15 12:45 PM) Immunizations No data available for this section [...]
--- OUTSIDE RECORDS SUMMARY | 2018-07-03 11:03 | XMS REPORT | Summary of Care ---
Author Author [facility] Address Unknown Phone Unavailable Encounter PRANAV Pop(MELISSA) [id number] Date(s): 08/11/15 - 08/11/15 [place] [address] Discharge Disposition: Home Attending Physician: Dallas Gomez MD Referring Physician: Dallas Gomez MD Vital Signs Most recent to 1 oldest [Reference Range]: Height 170.18 cm (08/11/15 11:35 AM) Temperature Oral 98.2 DegF [96.4-99.1 DegF] (08/11/15 11:35 AM) Blood Pressure 129/73 mmHg [90-140/60-90 mmHg] (08/11/15 11:35 AM) Peripheral Pulse 74 bpm Rate [60-100 bpm] (08/11/15 11:35 AM) Weight 106.818 kg (08/11/15 11:35 AM) Body Mass Index 36.88 m2 (08/11/15 11:35 AM) Problem List Condition Effective Dates Status [...]
--- OUTSIDE RECORDS SUMMARY | 2018-07-03 11:03 | XMS REPORT | Summary of Care ---
Author Author [facility] Address Unknown Phone Unavailable Encounter PRANAV Pop(MELISSA) [id number] Date(s): 12/11/15 - 12/11/15 [place] [address] [phone] Discharge Disposition: Home Attending Physician: Demi Reyna MD Referring Physician: Demi Reyna MD Vital Signs Most recent to 1 oldest [Reference Range]: Height 170.18 cm (12/11/15 9:08 AM) Blood Pressure 133/93 mmHg [90-140/60-90 mmHg] (12/11/15 9:08 AM) Respiratory Rate 20 BRMIN [14-20 BRMIN] (12/11/15 9:08 AM) Peripheral Pulse 87 bpm Rate [60-100 bpm] (12/11/15 9:08 AM) Weight 106.818 kg (12/11/15 9:08 AM) Body Mass Index 36.88 m2 (12/11/15 9:08 AM) Problem List Condition Effective Dates Status [...] Severity Status NKDA Active NKFA Active Medications DULoxetine 60 mg oral delayed release capsule 60 mg=1 cap, PO, Daily, # 90 cap, 3 Refill(s) Start Date: 12/11/15 Status: Ordered losartan 50 mg oral tablet 2tabs, PO, Daily, total of 100mg daily, 0 Refill(s) Start Date: 12/11/15 Status: Ordered Results No data available for [...]
--- OUTSIDE RECORDS SUMMARY | 2018-07-03 11:03 | XMS REPORT | Summary of Care ---
Author Author [facility] [place] Address Unknown Phone Unavailable Encounter HQ Cesar_hugo(FIN) [id number] Date(s): 01/06/16 - 01/06/16 [facility] [place] [address] [facility], [address] [place] [id number]- [phone] Discharge Disposition: Home Attending Physician: Demi Reyna MD Vital Signs No [...]
--- OUTSIDE RECORDS SUMMARY | 2018-07-03 11:03 | XMS REPORT | Summary of Care ---
Author Author [facility] Address Unknown Phone Unavailable Encounter PRANAV Pop(MELISSA) [id number] Date(s): 06/30/15 - 07/29/[address] Discharge Disposition: Home Attending Physician: Mary Mayo MD Vital Signs 1 2 3 Most recent to oldest [Reference Range]: 134/82 mmHg (07/26/15 5:30 PM) 142/86 mmHg *HI* (07/19/15 5:24 PM) 132/83 mmHg (07/12/15 5:25 PM) Blood Pressure [90-140/60-90 mmHg] 90 bpm (07/26/15 5:30 PM) 87 bpm (07/19/15 5:24 PM) 99 bpm (07/12/15 5:25 PM) Peripheral Pulse Rate [60-100 bpm] Problem [...]
--- OUTSIDE RECORDS SUMMARY | 2018-07-03 11:03 | XMS REPORT | Summary of Care ---
Author Author [facility] Address Unknown Phone Unavailable Encounter PRANAV Pop(MELISSA) [id number] Date(s): 12/01/15 - 12/30/15 [place] [address]93 [address] [phone] Discharge Disposition: Home Attending Physician: Mary Mayo MD Vital Signs Most recent to 1 oldest [Reference Range]: Blood Pressure 128/71 mmHg [90-140/60-90 mmHg] (12/15/15 3:50 PM) Peripheral Pulse 72 bpm Rate [60-100 bpm] (12/15/15 3:50 PM) Problem List Condition Effective Dates Status [...]
--- OUTSIDE RECORDS SUMMARY | 2018-07-03 11:03 | XMS REPORT | Summary of Care ---
Author Author [facility] Organization [facility] Address Unknown Phone Unavailable Encounter PRANAV Pop(MELISSA) [id number] Date(s): 05/29/15 - 06/27/[address] Discharge Disposition: Home Attending Physician: Mary Mayo MD Vital Signs 1 2 3 Most recent to oldest [Reference Range]: 131/88 mmHg (06/28/15 4:26 PM) 129/74 mmHg (06/23/15 4:14 PM) 155/95 mmHg *HI* (06/21/15 5:23 PM) Blood Pressure [90-140/60-90 mmHg] 83 bpm (06/28/15 4:26 PM) 95 bpm (06/23/15 4:14 PM) 98 bpm (06/21/15 5:23 PM) Peripheral Pulse Rate [60-100 bpm] Problem [...]
--- OUTSIDE RECORDS SUMMARY | 2018-07-03 11:03 | XMS REPORT | Summary of Care ---
Author Author [facility] Address Unknown Phone Unavailable Encounter PRANAV Pop(MELISSA) [id number] Date(s): 09/11/15 - 09/11/15 [place] [address] Discharge Disposition: Home Attending Physician: Demi Reyna MD Referring Physician: Demi Reyna MD Vital Signs Most recent to 1 oldest [Reference Range]: Height 170.18 cm (09/11/15 9:35 AM) Blood Pressure 148/92 mmHg [90-140/60-90 mmHg] *HI* (09/11/15 9:35 AM) Respiratory Rate 20 BRMIN [14-20 BRMIN] (09/11/15 9:35 AM) Peripheral Pulse 97 bpm Rate [60-100 bpm] (09/11/15 9:35 AM) Weight 106.818 kg (09/11/15 9:35 AM) Body Mass Index 36.88 m2 (09/11/15 9:35 AM) Problem List Condition Effective Dates Status [...] Daily, # 90 cap, 0 Refill(s), Pharmacy: [id number] Start Date: 09/11/15 Status: Ordered losartan 50 mg oral tablet 50 mg=1 tab, PO, Daily, # 30 tab, 0 Refill(s) Start Date: 09/11/15 Status: Ordered Results No data available for [...]
--- OUTSIDE RECORDS SUMMARY | 2018-07-03 11:03 | XMS REPORT | Summary of Care ---
Author Author [facility] Address Unknown Phone Unavailable Encounter HQ Kiesha(MELISSA) [id number] Date(s): 02/02/16 - 03/02/16 [place] [address] [place], [place] [address] Discharge Disposition: Home or Self Care Attending Physician: Mary Mayo MD Vital Signs Most recent to 1 2 oldest [Reference Range]: Blood Pressure 122/76 mmHg 134/90 mmHg [90-140/60-90 mmHg] (03/01/16 5:04 PM) (02/26/16 5:20 PM) Peripheral Pulse 84 bpm Rate [60-100 bpm] (03/01/16 5:04 PM) Problem List Condition Effective Dates Status [...]
--- OUTSIDE RECORDS SUMMARY | 2018-07-03 11:03 | XMS REPORT | Summary of Care ---
Author Author [facility] Address Unknown Phone Unavailable Encounter PRANAV Pop(MELISSA) [id number] Date(s): 10/02/15 - 10/31/[address] Discharge Disposition: Home Attending Physician: Mary Mayo MD Vital Signs 1 2 3 Most recent to oldest [Reference Range]: 128/69 mmHg (10/18/15 4:25 PM) 127/69 mmHg (10/11/15 4:56 PM) 145/89 mmHg *HI* (10/04/15 4:00 PM) Blood Pressure [90-140/60-90 mmHg] 68 bpm (10/18/15 4:25 PM) 71 bpm (10/11/15 4:56 PM) 68 bpm (10/04/15 4:00 PM) Peripheral Pulse Rate [60-100 bpm] Problem [...]
--- OUTSIDE RECORDS SUMMARY | 2018-07-03 11:03 | XMS REPORT | Summary of Care ---
Author Author [facility] Address Unknown Phone Unavailable Encounter HQ Kiesha(MELISSA) [id number] Date(s): 01/03/16 - 02/01/16 [place] [address] [place], [place] [address] [phone] Discharge Disposition: Home Attending Physician: Mary Mayo MD Vital Signs No data available for [...]
--- OUTSIDE RECORDS SUMMARY | 2018-07-03 11:03 | XMS REPORT | Summary of Care ---
Author Author [facility] Address Unknown Phone Unavailable Encounter PRANAV Pop(MELISSA) [id number] Date(s): 09/01/15 - 09/30/[address] Discharge Disposition: Home Attending Physician: Mary Mayo MD Vital Signs 1 2 3 Most recent to oldest [Reference Range]: 145/91 mmHg *HI* (09/20/15 3:58 PM) 130/87 mmHg (09/15/15 3:44 PM) 113/75 mmHg (09/08/15 6:07 PM) Blood Pressure [90-140/60-90 mmHg] 85 bpm (09/20/15 3:58 PM) 93 bpm (09/15/15 3:44 PM) 98 bpm (09/08/15 6:07 PM) Peripheral Pulse Rate [60-100 bpm] Problem [...]
--- OUTSIDE RECORDS SUMMARY | 2018-07-03 11:04 | XMS REPORT | Summary of Care ---
Author Author [facility] Organization [facility] Address Unknown Phone Unavailable Encounter HQ Kiesha(MELISSA) [id number] Date(s): 02/25/17 - 03/26/17 [address] [place], [place] [address] Discharge Disposition: Home or Self Care Attending Physician: Mary Mayo MD Vital Signs Most recent to 1 oldest [Reference Range]: Blood Pressure 134/94 mmHg [90-140/60-90 mmHg] (03/03/17 5:45 PM) Peripheral Pulse 79 bpm Rate [60-100 bpm] (03/03/17 5:45 PM) Problem List Condition Effective Dates Status Health Status Informant Deep vein Active thrombosis(Confirmed ) Diarrhea(Confirmed) Active Giant cell Active tumor(Confirmed) Hypertension(Confirm Active ed) [...] History Type Response Smoking Status Never smoker; Ready to change: No; Concerns about tobacco use in household: No; Exposure to Tobacco Smoke None; Cigarette Smoking Last 365 Days No; Reg Smoking Cessation Counseling No Assessment and Plan No data available for this section
--- OUTSIDE RECORDS SUMMARY | 2018-07-03 11:04 | XMS REPORT | Summary of Care ---
Author Author [facility] Organization [facility] Address Unknown Phone Unavailable Encounter HQ Kiesha(MELISSA) [id number] Date(s): 04/11/16 - 04/11/16 [address] [place], [place] [address] [phone] Discharge Disposition: Home or Self Care Attending Physician: Mary Mayo MD Referring Physician: Mary Mayo MD Vital Signs Most recent to 1 oldest [Reference Range]: Height 170.18 cm (04/11/16 9:00 AM) Temperature Oral 98.3 DegF [96.4-99.1 DegF] (04/11/16 9:00 AM) Blood Pressure 155/95 mmHg [90-140/60-90 mmHg] *HI* (04/11/16 9:00 AM) Respiratory Rate 20 BRMIN [14-20 BRMIN] (04/11/16 9:00 AM) Peripheral Pulse 86 bpm Rate [60-100 bpm] (04/11/16 9:00 AM) Weight 111.364 kg (04/11/16 9:00 AM) Body Mass Index 38.45 m2 (04/11/16 9:00 AM) Problem List Condition Effective Dates Status [...]
--- OUTSIDE RECORDS SUMMARY | 2018-07-03 11:04 | XMS REPORT | Summary of Care ---
Author Author [facility] Organization [facility] Address Unknown Phone Unavailable Encounter HQ Kiesha(MELISSA) [id number] Date(s): 05/05/17 - 06/03/17 [address] [place], [place] [address] Discharge Disposition: Home or Self Care Attending Physician: Mary Mayo MD Vital Signs Most recent to 1 oldest [Reference Range]: Blood Pressure 147/84 mmHg [90-140/60-90 mmHg] *HI* (05/05/17 6:08 PM) Peripheral Pulse 74 bpm Rate [60-100 bpm] (05/05/17 6:08 PM) Problem List Condition Effective Dates Status [...]
--- OUTSIDE RECORDS SUMMARY | 2018-07-03 11:04 | XMS REPORT | Summary of Care ---
Author Author [facility] Organization [facility] Address Unknown Phone Unavailable Encounter HQ Kiesha(MELISSA) [id number] Date(s): 03/04/17 - 03/04/17 [address] [place], [place] [address] Discharge Disposition: Home or Self Care Attending Physician: Mary Mayo MD Referring Physician: Mary Mayo MD Vital Signs Most recent to 1 oldest [Reference Range]: Height 170.18 cm (03/04/17 1:56 PM) Temperature Oral 98.2 DegF [96.4-99.1 DegF] (03/04/17 1:56 PM) Blood Pressure 143/94 mmHg [90-140/60-90 mmHg] *HI* (03/04/17 1:56 PM) Respiratory Rate 20 BRMIN [14-20 BRMIN] (03/04/17 1:56 PM) Peripheral Pulse 83 bpm Rate [60-100 bpm] (03/04/17 1:56 PM) Weight 116.818 kg (03/04/17 1:56 PM) Body Mass Index 40.34 m2 (03/04/17 1:56 PM) Problem List Condition Effective Dates Status [...] Severity Status NKDA Active NKFA Active Medications Enemeez Mini 283 mg rectal enema 283 mg=1 ea, PA, PRN, 0 Refill(s) Start Date: 03/04/17 Status: Ordered FiberCon 625 mg oral tablet 0 Refill(s) Start Date: 03/04/17 Status: Ordered Myrbetriq 50 mg oral tablet, extended release 50 mg=1 tab, PO, Daily, # 30 tab, 0 Refill(s) Start Date: 03/04/17 Status: Ordered Results No data available for [...]
--- OUTSIDE RECORDS SUMMARY | 2018-07-03 11:04 | XMS REPORT | Summary of Care ---
Author Author [facility] Address Unknown Phone Unavailable Encounter PRANAV Pop(MELISSA) [id number] Date(s): 10/13/17 - 11/11/17 [address] [place], [place] [address] [phone] Discharge Disposition: Home or Self Care Attending Physician: Mary Mayo MD Referring Physician: Mary Mayo MD Vital Signs Most recent to 1 2 oldest [Reference Range]: Blood Pressure 125/81 mmHg 160/107 mmHg [90-140/60-90 mmHg] (10/28/17 12:42 PM) *HI* (10/13/17 11:04 AM) Peripheral Pulse 54 bpm Rate [60-100 bpm] *LOW* (10/28/17 12:42 PM) Problem List Condition Effective Dates Status [...] Adverse Reactions, Alerts Substance Reaction Severity Status NKFA Active NKDA Active Medications No data available for this section Results No data available for this section Immunizations No data available for this section Procedures Procedure Date Related Diagnosis Body Site Status CMG - Cystometrogram 08/11/15 Completed Video urodynamic study 12/07/14 Completed section Completed IVC - Insertion of inferior vena caval 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
--- OUTSIDE RECORDS SUMMARY | 2018-07-03 11:04 | XMS REPORT | Summary of Care ---
Author Author [facility] Address Unknown Phone Unavailable Encounter HQ Kiesha(MELISSA) [id number] Date(s): 01/27/17 - 02/25/17 [address] [place], [place] [address] Discharge Disposition: Home or Self Care [...]
--- OUTSIDE RECORDS SUMMARY | 2018-07-03 11:04 | XMS REPORT | Summary of Care ---
Author Author [facility] Address Unknown Phone Unavailable Encounter PRANAV Pop(FIN) [id number] Date(s): 09/16/17 - 09/16/17 [address] [place], [place] [address] Encounter Diagnosis Other intervertebral disc displacement, lumbar region (Final) - 09/19/17 Discharge Disposition: Home or Self Care Attending Physician: Mary Mayo MD Referring Physician: Mary Mayo MD Vital Signs Most recent to 1 oldest [Reference Range]: Height 170.18 cm (09/16/17 1:06 PM) Blood Pressure 143/93 mmHg [90-140/60-90 mmHg] *HI* (09/16/17 1:06 PM) Respiratory Rate 20 BRMIN [14-20 BRMIN] (09/16/17 1:06 PM) Peripheral Pulse 76 bpm Rate [60-100 bpm] (09/16/17 1:06 PM) Weight 92.727 kg (09/16/17 1:06 PM) Body Mass Index 32.02 m2 (09/16/17 1:06 PM) Problem List Condition Effective Dates Status [...] Status NKFA Active NKDA Active Medications No Known Medications Results No [...]
--- OUTSIDE RECORDS SUMMARY | 2018-07-03 11:04 | XMS REPORT | Summary of Care ---
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
--- OUTSIDE RECORDS SUMMARY | 2018-07-03 11:04 | XMS REPORT | Summary of Care ---
Author Author [facility] Address Unknown Phone Unavailable Encounter HQ Kiesha(MELISSA) [id number] Date(s): 03/04/16 - 04/02/16 [address] [place], [place] [address] [phone] Discharge Disposition: Home or Self Care [...]
--- OUTSIDE RECORDS SUMMARY | 2018-07-03 11:04 | XMS REPORT | Summary of Care ---
Author Author [facility] Address Unknown Phone Unavailable Encounter HQ Kiesha(MELISSA) [id number] Date(s): 05/06/16 - 06/04/16 [address] [place], [place] [address] Discharge Disposition: Home or Self Care Attending [...]
--- OUTSIDE RECORDS SUMMARY | 2018-07-03 11:04 | XMS REPORT | Summary of Care ---
Author Author [facility] Address Unknown Phone Unavailable Encounter PRANAV Pop(MELISSA) [id number] Date(s): 10/11/16 - 11/09/16 [address] [place], [place] [address] Discharge Disposition: Home or Self Care Attending Physician: Physician, Non Associated MD Referring Physician: Agustín Nieto DO Vital Signs Most recent to 1 2 oldest [Reference Range]: Blood Pressure 147/105 mmHg 136/88 mmHg [90-140/60-90 mmHg] *HI* (10/11/16 9:04 AM) (10/28/16 5:51 PM) Peripheral Pulse 89 bpm 80 bpm Rate [60-100 bpm] (10/28/16 5:51 PM) (10/11/16 9:04 AM) Problem List Condition Effective Dates Status [...]
--- OUTSIDE RECORDS SUMMARY | 2018-07-03 11:04 | XMS REPORT | Summary of Care ---
Author Author [facility] Address Unknown Phone Unavailable Encounter HQ Kiesha(MELISSA) [id number] Date(s): 11/12/17 - 12/11/17 [facility] [address] [place], [place] [address] Discharge Disposition: Home or Self Care Attending [...]
--- OUTSIDE RECORDS SUMMARY | 2018-07-03 11:04 | XMS REPORT | Summary of Care ---
Author Author [facility] Address Unknown Phone Unavailable Encounter HQ Kiesha(MELISSA) [id number] Date(s): 04/03/16 - 05/02/16 [address] [place], [place] [address] [phone] Discharge Disposition: Home or Self Care Attending Physician: Mary Mayo MD Vital Signs Most recent to 1 2 oldest [Reference Range]: Blood Pressure 140/92 mmHg 145/87 mmHg [90-140/60-90 mmHg] (04/19/16 4:21 PM) *HI* (04/12/16 4:24 PM) Problem List Condition Effective Dates Status [...]
--- OUTSIDE RECORDS SUMMARY | 2018-07-03 11:04 | XMS REPORT | Summary of Care ---
Author Author [facility] Address Unknown Phone Unavailable Encounter HQ Kiesha(MELISSA) [id number] Date(s): 12/25/16 - 01/23/17 [address] [place], [place] [address] Discharge Disposition: Home or Self [...]
--- OUTSIDE RECORDS SUMMARY | 2018-07-03 11:04 | XMS REPORT | Summary of Care ---
Author Author [facility] Address Unknown Phone Unavailable Encounter HQ Kiesha(MELISSA) [id number] Date(s): 12/15/17 - 01/13/18 [facility] [address] [place], [place] [address] [phone] Discharge Disposition: Home or Self Care [...]
--- OUTSIDE RECORDS SUMMARY | 2018-07-03 11:04 | XMS REPORT | Summary of Care ---
Author Author [facility] Address Unknown Phone Unavailable Encounter HQ Kiesha(MELISSA) [id number] Date(s): 11/11/16 - 12/10/16 [facility] [address] [place], [place] [address] Discharge Disposition: Home or Self Care [...]
--- OUTSIDE RECORDS SUMMARY | 2018-07-03 11:04 | XMS REPORT | Summary of Care ---
Author Author [facility] Address Unknown Phone Unavailable Encounter PRANAV Pop(MELISSA) [id number] Date(s): 09/12/16 - 09/12/16 [address] [place], [place] [address] Discharge Disposition: Home or Self Care Attending Physician: Mary Mayo MD Referring Physician: Mary Mayo MD Vital Signs Most recent to 1 oldest [Reference Range]: Height 170.18 cm (09/12/16 9:34 AM) Blood Pressure 115/78 mmHg [90-140/60-90 mmHg] (09/12/16 9:34 AM) Respiratory Rate 20 BRMIN [14-20 BRMIN] (09/12/16 9:34 AM) Peripheral Pulse 101 bpm Rate [60-100 bpm] *HI* (09/12/16 9:34 AM) Weight 116.818 kg (09/12/16 9:34 AM) Body Mass Index 40.34 m2 (09/12/16 9:34 AM) Problem List Condition Effective Dates Status [...]
--- OUTSIDE RECORDS SUMMARY | 2018-07-03 11:04 | XMS REPORT | Summary of Care ---
Author Author [facility] Address Unknown Phone Unavailable Encounter HQ Kiesha(MELISSA) [id number] Date(s): 04/01/17 - 04/30/17 [address] [place], [place] [address] [phone] Discharge Disposition: Home or Self Care [...]
--- OUTSIDE RECORDS SUMMARY | 2018-07-03 11:04 | XMS REPORT | Summary of Care ---
Author Author [facility] Address Unknown Phone Unavailable Encounter PRANAV Pop(MELISSA) [id number] Date(s): 07/17/17 - 08/15/17 [facility] [address] [place], [place] [address] Encounter Diagnosis Paraplegia, incomplete (Final) - 08/26/17 Dependence on wheelchair (Final) - Neuromuscular dysfunction of bladder, unspecified (Final) - Neurogenic bowel, not elsewhere classified (Final) - Discharge Disposition: Home or Self Care Attending Physician: Mary Mayo MD Referring Physician: Mary Mayo MD Vital Signs Most recent to 1 oldest [Reference Range]: Blood Pressure 141/80 mmHg [90-140/60-90 mmHg] *HI* (07/17/17 9:10 AM) Peripheral Pulse 64 bpm Rate [60-100 bpm] (07/17/17 9:10 AM) Problem List Condition Effective Dates Status [...]
--- OUTSIDE RECORDS SUMMARY | 2018-07-03 11:04 | XMS REPORT | Summary of Care ---
Author Author [facility] Address Unknown Phone Unavailable Encounter PRANAV Pop(MELISSA) [id number] Date(s): 04/02/17 - 05/01/17 [address] [place], [place] [address] [phone] Discharge Disposition: Home or Self Care Attending Physician: Mary Mayo MD Referring Physician: Mayr Mayo MD Vital Signs Most recent to 1 2 oldest [Reference Range]: Height 170.18 cm (04/02/17 12:45 PM) Blood Pressure 145/84 mmHg 138/85 mmHg [90-140/60-90 mmHg] *HI* (04/02/17 12:45 PM) (04/07/17 3:06 PM) Peripheral Pulse 62 bpm 76 bpm Rate [60-100 bpm] (04/07/17 3:06 PM) (04/02/17 12:45 PM) Weight 113.545 kg (04/02/17 12:45 PM) Body Mass Index 39.21 m2 (04/02/17 12:45 PM) Problem List Condition Effective Dates Status [...]
[2018-07-03 13:16] VITALS: BP 143/83
--- NOTE | 2018-07-03 13:18 | Operative Report ---
DATE OF PROCEDURE: July 03, 2018 PREOPERATIVE DIAGNOSIS: Thrombosed prolapsing internal and external hemorrhoids. POSTOPERATIVE DIAGNOSIS: Thrombosed prolapsing internal and external hemorrhoids. OPERATION PERFORMED: Internal and external hemorrhoidectomy. ANESTHESIA: General. COMPLICATIONS: None. ESTIMATED BLOOD LOSS: Minimal. DESCRIPTION OF PROCEDURE: With the patient lying in bed in the lithotomy position under good general anesthesia, the perineum was prepped w Betadine solution and draped in the usual manner. Standard anorectal block was then performed using 0.25% Marcaine and 1% Marcaine with epinephrine. This gave us a satisfactory relaxation of the area. Examination revealed the fact that there were 2 large groups of prolapsing hemorrhoids at the 8 and 4 o'clock position. 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 The 2 groups were done in similar fashion. The base of the hemorrhoid was then ligated with an 0 chromic suture. The external component was then sharply resected, as well as the internal component, including all of the leukoplakia and stricture ring that was present on the base of the hemorrhoid. After this was done, the hemorrhoid was further oversewn with the same 0 chromic suture. The skin and mucosa were then reapproximated with interrupted sutures of 3-0 chromic. Hemostasis was ascertained. A Gelfoam pack impregnated with Xylocaine was placed. A dressing was applied. The sponge, lap and needle count was correct. Patient tolerated the procedure well and returned to the recovery room in stable condition. Job#: [id number] [place]
[2018-07-03] MEDS: HYDROCODONE/APAP 7.5MG-325MG 1 EA TAB PO PRN ×2 (14:04→20:30)
[2018-07-03 16:04] VITALS: BP 165/74
[2018-07-03] MEDS ORDERED: LIDOCAINE HCL 2% LOCAL INJ 5 ML SDV VIAL INJ ONE (17:30)
[2018-07-03] MEDS ORDERED: PROPOFOL IV EMULSION 10 MG/ML 20 ML VIAL ONE (17:30)
[2018-07-03] MEDS ORDERED: DEXAMETHASONE SOD PHOS INJ 4 MG/ML VIAL ONE (17:30)
[2018-07-03] MEDS ORDERED: ONDANSETRON HCL INJ 2 MG/ML VIAL ONE (17:30)
[2018-07-03 19:42] VITALS: BP 126/93
[2018-07-03 20:00] VITALS: BP 126/93
[2018-07-03] MEDS: HYDROMORPHONE 2MG/ML 2 MG/ML ML IV PRN (21:03)
[2018-07-03] MEDS ORDERED: FENTANYL CITRATE/PF 100MCG/2 ML INJ ONE (21:09)
[2018-07-03] MEDS ORDERED: MIDAZOLAM HCL 2 MG/2 ML VIAL ONE (21:09)
[2018-07-04 01:38] VITALS: BP 132/63
[2018-07-04 04:00] VITALS: BP 161/93
[2018-07-04] MEDS: HYDROCODONE/APAP 7.5MG-325MG 1 EA TAB PO PRN (04:43)
[2018-07-04] MEDS: HYDROMORPHONE 2MG/ML 2 MG/ML ML IV PRN (07:02)
[2018-07-04 07:40] VITALS: BP 178/70
[2018-07-04] MEDS ORDERED: CARVEDILOL 12.5 MG PO SCH (09:00)
[2018-07-04] MEDS ORDERED: MYRBETRIQ PO SCH (09:00)
[2018-07-04] MEDS ORDERED: CARVEDILOL 12.5 MG TAB PO SCH (09:00)
== END 2018-07-04 10:13 | disposition home or self-care (01) ==
LOC: OR 06:04 → PACU V 10:22 → IMCU 13:04
PROVIDERS: ADMIT Surgery; ATTEND Surgery
DX: K64.5 Perianal venous thrombosis (principal); G82.20 Paraplegia, unspecified; K58.9 Irritable bowel syndrome, unspecified; K21.9 Gastro-esophageal reflux disease without esophagitis; Z01.812 Encounter for preprocedural laboratory examination
CPT/HCPCS: 36415; 46260; 80048; 81025; 85025; 88304; 93005; 96376; G0378 ×2; J1100; J1170 ×2; J2001 ×2; J2250; J2405; J2704; J7030 ×2; 96374

== ENCOUNTER → 2019-01-07 | Outpatient (CLI) | payer BC | LOC: WCC 12:19 | PROVIDERS: ATTEND Family Medicine Adult Medicine | DX: S91.102A Unspecified open wound of left great toe without damage to nail, initial encounter (principal); G82.22 Paraplegia, incomplete; I10 Essential (primary) hypertension; K58.9 Irritable bowel syndrome, unspecified; X58.XXXA Exposure to other specified factors, initial encounter ==

== ENCOUNTER → 2019-01-14 | Outpatient (CLI) | payer BC | LOC: WCC 12:06 | PROVIDERS: ATTEND Family Medicine Adult Medicine | DX: S91.102A Unspecified open wound of left great toe without damage to nail, initial encounter (principal); G82.22 Paraplegia, incomplete; I10 Essential (primary) hypertension; K58.9 Irritable bowel syndrome, unspecified; X58.XXXA Exposure to other specified factors, initial encounter ==

== ENCOUNTER → 2019-01-26 | Outpatient (CLI) | payer BC ==
[~2019-01-26] MED LIST changes: +LIDOCAINE VISC 2% SOLN 15 ML UDC ONE; +LIDOCAINE/PRILOCAINE 2.5-2.5% KIT ONE
== END ==
LOC: WCC 09:21
PROVIDERS: ATTEND Family Medicine Adult Medicine
DX: S91.102A Unspecified open wound of left great toe without damage to nail, initial encounter (principal); G82.22 Paraplegia, incomplete; I10 Essential (primary) hypertension; K58.9 Irritable bowel syndrome, unspecified; X58.XXXA Exposure to other specified factors, initial encounter

== ENCOUNTER → 2019-02-04 | Outpatient (CLI) | payer BC ==
[~2019-02-04] MED LIST changes: -LIDOCAINE VISC 2% SOLN 15 ML UDC ONE; -LIDOCAINE/PRILOCAINE 2.5-2.5% KIT ONE
== END ==
LOC: WCC 15:02
PROVIDERS: ATTEND Family Medicine Adult Medicine
DX: S91.102A Unspecified open wound of left great toe without damage to nail, initial encounter (principal); G82.22 Paraplegia, incomplete; I10 Essential (primary) hypertension; K58.9 Irritable bowel syndrome, unspecified; X58.XXXA Exposure to other specified factors, initial encounter

== ENCOUNTER → 2019-02-09 | Outpatient (CLI) | payer BC | LOC: WCC 11:10 | PROVIDERS: ATTEND Family Medicine Adult Medicine | DX: S91.102A Unspecified open wound of left great toe without damage to nail, initial encounter (principal); G82.22 Paraplegia, incomplete; I10 Essential (primary) hypertension; K58.9 Irritable bowel syndrome, unspecified; X58.XXXA Exposure to other specified factors, initial encounter ==

== ENCOUNTER → 2019-02-11 | Outpatient (CLI) | payer BC ==
[~2019-02-11] MED LIST changes: +IOPAMIDOL 370 MG/ML 200 ML INFUS..BTL INJ ONE; +SODIUM CHLORIDE 0.9% 50ML 50 ML ONE
[2019-02-11 08:17] LABS: BLOOD UREA NITROGEN 15 mg/dL (7-26); BUN/CREATININE RATIO 29 (6-25); CREATININE, SERUM 0.51 mg/dL (0.57-1.11); EST GLOMERULAR FILTRATION RATE > 60 ML/MIN (60-)
--- NOTE | 2019-02-11 10:31 | Diagnostic Imaging Report ---
EXAM: CT Abdomen and Pelvis WITH intravenous contrast INDICATION: Renal mass COMPARISON: Abdominal ultrasound of 04/07/2018, CT abdomen pelvis of 03/19/2018 TECHNIQUE: Abdomen and pelvis were scanned utilizing a multidetector helical scanner from the lung base to the pubic symphysis after administration of IV contrast. Coronal and sagittal reformations were obtained. Routine protocol was performed. Scan was performed when during portal venous phase. IV CONTRAST: 100mL of Isovue 370 ORAL CONTRAST: Water COMPLICATIONS: None RADIATION DOSE: Total DLP: 823.07 mGy*cm Dose modulation, iterative reconstruction, and/or weight based adjustment of the mA/kV was utilized to reduce the radiation dose to as low as reasonably achievable. FINDINGS: LOWER THORAX: Minimal bibasilar dependent subsegmental atelectasis. HEPATOBILIARY: No focal hepatic lesions. No biliary ductal dilatation. The gallbladder is absent. SPLEEN: No splenomegaly. PANCREAS: No focal masses or ductal dilatation. ADRENALS: No adrenal nodules. KIDNEYS/URETERS: Left renal 1.2 cm cystic lesion appears essentially unchanged from 03/19/2018. No new renal cysts or mass identified. No renal calculi. No hydronephrosis. PELVIC ORGANS/BLADDER: Intrauterine device in place. PERITONEUM / RETROPERITONEUM: No free air or fluid. LYMPH NODES: No lymphadenopathy. VESSELS: IVC filter in place. Likely chronic DVT and scarring of the left external iliac and common iliac vein. GI TRACT: No distention or wall thickening. BONES AND SOFT TISSUES: Postoperative findings of posterior spinal fusion from T11 to L2. No suspicious lytic or blastic lesions. No acute fracture. IMPRESSION: Unchanged 1.2 cm cystic lesion in the left kidney. No new renal mass. No hydronephrosis or renal calculi. IVC filter in place. Likely chronic deep venous thrombosis and scarring of the left common iliac and external iliac veins. Signed by: Sharon Brandon MD on 02/11/2019 10:27 AM
== END ==
LOC: CT 07:33
PROVIDERS: ATTEND Urology
DX: D41.00 Neoplasm of uncertain behavior of unspecified kidney (principal)
CPT/HCPCS: 36415; 74177; 81025; 82565; 84520; Q9967

== ENCOUNTER → 2019-02-16 | Outpatient (CLI) | payer BC ==
[~2019-02-16] MED LIST changes: -IOPAMIDOL 370 MG/ML 200 ML INFUS..BTL INJ ONE; -SODIUM CHLORIDE 0.9% 50ML 50 ML ONE
== END ==
LOC: WCC 10:48
PROVIDERS: ATTEND Family Medicine Adult Medicine
DX: S91.102A Unspecified open wound of left great toe without damage to nail, initial encounter (principal); G82.22 Paraplegia, incomplete; I10 Essential (primary) hypertension; K58.9 Irritable bowel syndrome, unspecified; X58.XXXA Exposure to other specified factors, initial encounter

== ENCOUNTER → 2019-02-23 | Outpatient (CLI) | payer BC | LOC: WCC 11:28 | PROVIDERS: ATTEND Family Medicine Adult Medicine | DX: S91.102A Unspecified open wound of left great toe without damage to nail, initial encounter (principal); G82.22 Paraplegia, incomplete; I10 Essential (primary) hypertension; K58.9 Irritable bowel syndrome, unspecified; X58.XXXA Exposure to other specified factors, initial encounter ==

== ENCOUNTER → 2019-03-02 | Outpatient (CLI) | payer BC | LOC: WCC 12:22 | PROVIDERS: ATTEND Family Medicine Adult Medicine | DX: S91.102A Unspecified open wound of left great toe without damage to nail, initial encounter (principal); G82.22 Paraplegia, incomplete; I10 Essential (primary) hypertension; K58.9 Irritable bowel syndrome, unspecified; X58.XXXA Exposure to other specified factors, initial encounter ==

== ENCOUNTER → 2019-05-24 | Outpatient (CLI) | payer BC ==
--- NOTE | 2019-05-24 13:09 | Diagnostic Imaging Report ---
EXAM: Renal Ultrasound INDICATION: ^[id number] ^1029 ^CYST OF KIDNEY COMPARISON: Renal ultrasound of 12/16/2017, TECHNIQUE: Transverse and longitudinal images of the kidneys and bladder were obtained. FINDINGS: Right Kidney: Length: 12.8 cm Appearance: Normal echogenicity. Collecting system: No hydronephrosis Stones: None Cyst/Mass: None Left Kidney: Length: 11.0 cm Appearance: Normal echogenicity. Collecting system: No hydronephrosis Stones: None Cyst/Mass: Mid pole anechoic cyst measures up to 1.7 cm. Bladder: No mass or calculi. Bilateral ureteral jets visualized. Estimated prevoid volume of 286.5 cc. IMPRESSION: No hydronephrosis or renal calculi. Left mid pole anechoic simple cyst. Signed by: Sharon Brandon MD on 05/24/2019 1:05 PM
== END ==
LOC: US 10:14
PROVIDERS: ATTEND Urology
DX: N28.1 Cyst of kidney, acquired (principal)
CPT/HCPCS: 76770

== ENCOUNTER 2024-10-23 19:01 | Emergency (ER) | payer MEDICARE ==
[~2024-10-23] VITALS: Ht 170.2 cm; Wt 95.3 kg
[~2024-10-23 19:01] MED LIST changes: +BENZONATATE100 MG PO; +CIPRO250 MG PO; +CYMBALTA30 MG PO; +FLUOXETINE HCL60 MG PO; +IBUPROFEN400 MG PO; +LISINOPRIL10 MG PO; +LORATADINE10 MG PO; +MACROBID 100 M100 MG PO; +NEURONTIN300 MG PO; +TRAZODONE HCL50 MG PO; +VESICARE5 MG PO
[2024-10-23 19:30] VITALS: PULSE 88; RESP 20; TEMP 99
[2024-10-23 20:22] LABS: BILIRUBIN,URINE NEGATIVE (NEGATIVE); CLARITY,URINE CLEAR (CLEAR); COLOR,URINE YELLOW (YELLOW); EPITHELIAL CELLS,URINE FEW /LPF; GLUCOSE, URINE NEGATIVE (NEGATIVE); KETONES,URINE NEGATIVE (NEGATIVE); LEUKOCYTE ESTERASE ,URINE NEGATIVE (NEGATIVE); NITRITE,URINE NEGATIVE (NEGATIVE); PH,URINE 6 (5 - 7); PROTEIN,URINE DIPSTICK NEGATIVE (NEGATIVE); RBC,URINE 0-5 /HPF (0-5); URINE UROBILINOGEN 0.2 mg/dL (0.2 - 1); WBC,URINE (MAN) 0-5 /HPF (0-5)
[2024-10-23 20:26] LABS: BASOPHILS % 0.3 % (0.0-1.0); EOSINOPHILS # (AUTO) 0.1 (0.0-0.4); EOSINOPHILS % 0.5 % (0.0-6.0); HEMATOCRIT 42.6 % (34.2-44.1); HEMOGLOBIN 15.1 g/dL (12.0-16.0); LYMPHOCYTES # (AUTO) 2.5 (1.0-3.2); LYMPHOCYTES % 20.4 % (18.0-39.1); MEAN CORPUSCULAR HEMOGLOBIN 30.9 pg (28-32); MEAN CORPUSCULAR HGB CONC 35.4 g/dL (31-35); MEAN CORPUSCULAR VOLUME 87.3 fL (81-99); MONOCYTES # (AUTO) 0.6 (0.2-0.8); MONOCYTES % 4.8 % (4.4-11.3); NEUTROPHILS % 73.8 % (38.7-80.0); PLATELET COUNT 373 x10e3/uL (140-360); RED BLOOD COUNT 4.88 x10e6/uL (3.6-5.1); WHITE BLOOD COUNT 12.22 x10e3/uL (4.8-10.8)
[2024-10-23] MEDS: ONDANSETRON HCL INJ 2MG/ML 2ML 2 MG/ML VIAL IV STA (20:26)
[2024-10-23] MEDS: SODIUM CHLORIDE 0.9% 1000ML 1,000 ML IV ONE (20:26)
[2024-10-23] MEDS: Morphine 4mg INJECTION 4 MG/ML INJ IV ONE (20:26)
[2024-10-23 20:28] LABS: BACTERIA,URINE MODERATE /HPF
[2024-10-23 20:45] LABS: ALBUMIN 4.7 g/dL (3.5-5.0); ALBUMIN/GLOBULIN RATIO 1.1 (0.8-2.0); ANION GAP 17.7 mmol/L (8-16); BILIRUBIN,TOTAL 0.6 mg/dL (0.2-1.2); CALCIUM 9.4 mg/dL (8.4-10.2); CREATININE, SERUM 0.66 mg/dL (0.57-1.11); POTASSIUM 3.7 mmol/L (3.5-5.1); TOTAL PROTEIN 8.8 g/dL (6.5-8.1)
[2024-10-23] MEDS: KETOROLAC TROMETHAMINE 30 MG/ML VIAL IV STA (23:14)
[2024-10-24] MEDS ORDERED: CYCLOBENZAPRINE5 MG PO (00:12)
[2024-10-24] MEDS ORDERED: NAPROSYN500 MG PO (00:12)
[2024-10-24 01:17] VITALS: BP 127/84; PULSE 74; RESP 18; TEMP 98.6; O2SAT 98
== END 2024-10-24 00:15 | disposition home or self-care (01) ==
LOC: ER 19:58
DX: R10.9 Unspecified abdominal pain (principal); S39.011A Strain of muscle, fascia and tendon of abdomen, initial encounter; I10 Essential (primary) hypertension; G82.20 Paraplegia, unspecified; Z87.19 Personal history of other diseases of the digestive system
CPT/HCPCS: 36415; 74176; 80053; 81001; 84702; 85025; 87086; 99284; J1885; J2270; J2405; J7030